=== PATIENT | male | born 1945 | race Caucasian/White ===

== ENCOUNTER 2020-10-15 14:36 | Outpatient (CLI) | payer OTHER, SELFPAY ==
--- NOTE | 2020-10-15 14:40 | XR_ITS ---
WS: [id number] XR abdomen 1V* [id number] REASON FOR EXAM: abdominal pain FINDINGS: Bowel gas pattern is unremarkable. No free air or retroperitoneal air is noted. No urinary tract calculi. Multiple surgical clips overlying the superior right sacral wing. No mass identified. XR/XR abdomen 1V* [id number] IMPRESSION: No acute abnormality.
--- NOTE | 2020-10-15 14:40 | XR_ITS ---
WS: [id number] XR ribs LT 2V* [id number] REASON FOR EXAM: pain and fall FINDINGS: Healing or healed anterior left sixth rib fracture. No other focal rib abnormality is identified. Left lung is unremarkable. XR/XR ribs LT 2V* [id number] IMPRESSION: Healed or healing left sixth rib fracture. No acute rib abnormality identified.
== END 2020-10-15 14:37 | disposition home or self-care (01) ==
PROVIDERS: PCP Emergency Medicine Emergency Medical Services; Visit Provider Nurse Practitioner
DX: R10.9 Unspecified abdominal pain (principal); R07.81 Pleurodynia; W19.XXXA Unspecified fall, initial encounter
CPT/HCPCS: 71100; 74018

== ENCOUNTER → 2020-11-13 11:42 | Outpatient (BNVA) | payer OTHER, SELFPAY | PROVIDERS: PCP Emergency Medicine Emergency Medical Services; Referring Provider Emergency Medicine Emergency Medical Services; Visit Provider Podiatrist Foot & Ankle Surgery | DX: L97.322 Non-pressure chronic ulcer of left ankle with fat layer exposed (principal); M79.89 Other specified soft tissue disorders; M77.8 Other enthesopathies, not elsewhere classified | CPT/HCPCS: 73610 ==

== ENCOUNTER 2020-11-14 09:02 | Outpatient (CLI) | payer OTHER, SELFPAY ==
[2020-11-14 10:06] LABS: Basophils # 0.1 10^3/uL (0.0-0.1); Eosinophils # 0.1 10^3/uL (0.0-0.8); Hematocrit 42.7 % (42.0-52.0); Lymphocytes # 1.7 10^3/uL (0.8-4.8); Mean Corpuscular HGB Conc 35.1 g/dL (30.0-36.0); Mean Corpuscular Hemoglobin 32.6 pg (28.0-34.0); Mean Corpuscular Volume 92.8 fL (80-94); Mean Platelet Volume 10.6 fL (7.4-10.4); Monocytes # 0.7 10^3/uL (0.2-0.9); Monocytes % 9.4 %; Neutrophils # 4.48 10^3/uL (1.8-7.7); Neutrophils % 62.9 %; Nucleated Red Blood Cells % 0 %; Platelet Count 105 10^3/cmm (130-400); Red Cell Distribution Width 12.6 % (12.1-15.1); White Blood Count 7.1 10^3/uL (4.0-10.0)
[2020-11-14 10:44] LABS: Slide Review Slide Review Perform
--- NOTE | 2020-11-15 17:04 | ONC CON_ITS ---
Dr. Novak New Patient Note Patient: Immanuel Dumont Unit #: [id number]: 1945 Dicatated By: Hamlet Novak M.D.Date of Visit: Nov 14, 2020 Onc MED New Patient/Consult Referring Physician: Dr. CHET DAWSON M.D. History of Present Illness: Mr. Immanuel Dumont, is a 75-year-old gentleman with a history of hemochromatosis, as per patient he was diagnosed this condition in [address] 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 His past medical history significant for insulin-dependent diabetes mellitus, coronary artery disease, as per daughter medical management only. Diabetic foot ulcers. Denies any specific complaints, no fever chills, no nausea or vomiting, no diarrhea constipation, no headaches blurred vision or double vision. Denies any specific complaint today denies any fever chills denies any nausea or vomiting denies any diarrhea or constipation, as per patient no history of special scan to check iron overload done in the past. Past Medical History: Mr. Dumont's medical history consists of anxiety, bph, carpal tunnel syndrome, depression, gastroesophageal reflux disease, hyperglyceridemia, hypertension, Teitzes disease, and type II diabetes. Past Surgical History: There is no documented surgical history. Medications: Aspirin 81 1 Tablet (of 81 mg) Tablet, chewable Oral daily, Atorvastatin Calcium 1 Tablet (of 80 mg) Oral daily, DULoxetine HCl 1 Capsule (of 30 mg) Capsule Delayed Release Particles Oral b.i.d., Finasteride 1 Tablet (of 5 mg) Oral daily, Furosemide 1 Tablet (of 20 mg) Oral daily, Gabapentin 1 Capsule (of 300 mg) Oral t.i.d., Isosorbide Mononitrate ER 1 Tablet (of 120 mg) Tablet SR 24 HR Oral daily, Methocarbamol 1 Tablet (of 750 mg) Oral t.i.d., Nitrostat 1 Tablet (of 0.4 mg) Tablet, sublingual Sublingual PRN, Plavix 1 Tablet (of 75 mg) Oral daily, Ranexa 1 Tablet (of 1000 mg) Tablet SR 12 HR Oral b.i.d. Allergies: Dulaglutide, Empagliflozin, Liraglutide, and Pregabalin. Social History: Mr. Dumont is . Family History: There is no documented family history. Review Of Symptoms: Constitutional - Appetite is good and weight is stable. No fever, night sweats, or hot flashes. Energy level is fair, ENMT - No sinus congestion/drainage. No mouth sores. No sore throat or difficulty swallowing, Hematologic/Lymphatic - Positive for easy bruising and bleeding, Respiratory - Positive for shortness of breath. No cough. No pleuritic pain or hemoptysis, Cardiovascular - Positive for occasional chest pain and heart palpitations, Gastrointestinal - No nausea or vomiting. Positive for heartburn and acid reflux. No diarrhea or constipation. No blood in the stool or black stools, Genitourinary (M) - No dysuria or hematuria. No urinary frequency. No urgency . Positive for incontinence, Musculoskeletal - No joint or bone pain, Neurologic - No headache. Positive dizziness. Positive for numbness, no tingling. No other focal neurologic symptoms, Psychiatric - No anxiety or depression. No insomnia. Vital Signs: Performed on Nov 14, 2020 11:35: 0, 28.43, 2.17 sq.m, 72 in, 94 % (LOW), 88 /min, 16 /min, 123/59 mm(hg), 98.2 F (LOW), and 209.6 lbs (HIGH). Performance Status: 2 - Ambulatory/capable of all self-care, unable to perform any work activities. Up and about more than 50% of waking hours. (ECOG) Physical Examination: ENMT - No mouth sores, no thrush, no jaundice, Respiratory - Poor air entry otherwise clear, Cardiovascular - Regular rate and rhythm of heart, Abdomen - Soft, bowel sounds present, Extremities - 1+ edema bilateral. Lab/Imaging: Most recent lab results are not available for this patient. Impression: History of hemochromatosis, as per patient he was diagnosed in 2011 or 13 at [facility] in [place], at that time genetic testing was positive for HFE gene and his ferritin was more than 2000 and he was treated with frequent phlebotomies. 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 As his ferritin is elevated, goal is to keep ferritin less than 50 ideally less than 25 to minimize risk of iron deposition in vital organs, will consider phlebotomy today and then he will return to clinic in 1 month with CBC and ferritin, in the meantime we will obtain records from [facility] and [facility]. Patient was advised to avoid iron rich foods Signed By: Hamlet Novak M.D. <<Signature on File>>
== END 2020-11-14 09:03 | disposition home or self-care (01) ==
PROVIDERS: Internal Medicine Hematology & Oncology; PCP Emergency Medicine Emergency Medical Services; Referring Provider Emergency Medicine Emergency Medical Services; Visit Provider Internal Medicine Medical Oncology
DX: E83.110 Hereditary hemochromatosis (principal); E11.40 Type 2 diabetes mellitus with diabetic neuropathy, unspecified; Z79.4 Long term (current) use of insulin; E11.59 Type 2 diabetes mellitus with other circulatory complications; I25.10 Atherosclerotic heart disease of native coronary artery without angina pectoris; E11.65 Type 2 diabetes mellitus with hyperglycemia; E78.5 Hyperlipidemia, unspecified; L97.509 Non-pressure chronic ulcer of other part of unspecified foot with unspecified severity; Z79.899 Other long term (current) drug therapy
CPT/HCPCS: 36415; 85025; 99195; 99204

== ENCOUNTER → 2020-11-21 09:49 | Outpatient (BNVA) | payer OTHER, SELFPAY | PROVIDERS: PCP Emergency Medicine Emergency Medical Services; Visit Provider Internal Medicine | DX: E11.40 Type 2 diabetes mellitus with diabetic neuropathy, unspecified (principal); E11.59 Type 2 diabetes mellitus with other circulatory complications; I25.10 Atherosclerotic heart disease of native coronary artery without angina pectoris; E11.65 Type 2 diabetes mellitus with hyperglycemia; E78.5 Hyperlipidemia, unspecified; L97.509 Non-pressure chronic ulcer of other part of unspecified foot with unspecified severity | CPT/HCPCS: 99205 ==

== ENCOUNTER 2020-12-29 18:05 | Emergency (ER) | payer OTHER, SELFPAY ==
[2020-12-29] VITALS (8 sets, daily range): BP systolic 111–136; BP diastolic 64–84; PULSE 100–109; RESP 14–25; TEMP 37.1; O2SAT 91–95; BMI 28.5
--- NOTE | 2020-12-29 18:21 | ECG_ITS ---
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 Measurements Intervals [place] Rate: 109 P: [place]: QRS: 104 QRSD: 139 T: 20 QT: 363 QTc: 489 Interpretive Statements SINUS TACHYCARDIA RIGHT AXIS DEVIATION [QRS AXIS > 100] RIGHT BUNDLE BRANCH BLOCK [120+ ms QRS DURATION, UPRIGHT V1, 40+ ms S IN I/aVL/V4/V5/V6] No previous ECG available for comparison Electronically Signed On 01-01-2021 6:35:15 MOBILE BATTERY TECHNICIAN by Ruby Rojas M.D. [id number]
--- NOTE | 2020-12-29 18:21 | XRR_ITS ---
PROCEDURE INFORMATION: Exam: XR Chest, 1 View Exam date and time: 12/29/2020 6:21 PM Age: 75 years old Clinical indication: Chest pain TECHNIQUE: Imaging protocol: XR of the chest Views: 1 view. COMPARISON: CR XR ribs LT 2V* [id number] 10/15/2020 3:12 PM FINDINGS: Lungs: Right mid to lower lung field atelectasis versus minimal infiltrate. Pleural spaces: Unremarkable. No pleural effusion. No pneumothorax. Heart/Mediastinum: Unremarkable. No cardiomegaly. Bones/joints: Unremarkable. XR/XR chest 1V portable [id number] IMPRESSION: Right mid to lower lung field atelectasis versus minimal infiltrate.
--- NOTE | 2020-12-29 19:06 | ED_ITS ---
HPI - Chest Pain General: Chief Complaint: Chest Pain Stated Complaint: CP, NUMBNESS L ARM Time Seen by Provider: 12/29/20 18:26 History of Present Illness: HPI narrative: 75-year-old gentleman with a history of coronary disease. He had one stent several years ago. He had a cath in July, evidently showing widespread disease. CABG was suggested, but after he followed up with the chest surgeon, they said that he may not do well with bypass surgery. He recently moved here. He awoke with chest pain at 630 this morning. He is had it all day. It radiates into his left arm, and he gets numbness and tingling to his left arm. 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 Onset (ago): hour(s) Prior episodes: Yes Onset: during rest and awoke with symptoms Pain location: left chest Pain radiation: left arm Severity: moderate Quality: sharp Associated symptoms: Deny dyspnea, fever(s), nausea, palpitations, syncope or vomiting Review of Systems Const: Denies: fever(s) ENMT: Denies: throat pain, nasal congestion or post nasal drip Card: Denies: palpitations or syncope Resp: Denies: dyspnea GI: Denies: nausea or vomiting Neuro: Reports: numbness in extremities (left); Denies: headache(s) PFS ED PFSH: Medical History Adopted Arthritis History of amputation of right great toe Stroke Surgical History History of amputation of lesser toe of left foot History of appendectomy History of carpal tunnel release History of shoulder surgery Social History Smoking and tobacco status: former smoker Alcohol intake: current Alcohol intake frequency: holidays/special occasions only Adopted: Yes Lives independently: Yes Housing: Apartment Physical Exam Const: GENERAL APPEARANCE: frail appearing ORIENTATION/CONSCIOUSNESS: Yes oriented to person, Yes oriented to place and Yes oriented to time HENMT: COMMON NORMALS: normocephalic, external ears normal and Normal external nose present HEAD & SCALP: normocephalic; no scalp tenderness FACE & SINUS: normal facial exam NOSE: Normal external nose present and No nasal discharge present EXTERNAL EAR: Yes external ears normal Eye: COMMON NORMALS: Equal, round and reactive pupils present, EOMs intact bilaterally and conjunctivae normal EYELID: eyelids normal CONJUNCTIVA: Yes conjunctivae normal PUPIL: Yes Equal, round and reactive pupils present Neck/C-Spine: GENERAL: No tracheal deviation Chest: COMMONS NORMALS: normal inspection of the chest CHEST: No tenderness Resp: COMMON NORMALS: clear to auscultation bilaterally EFFORT & INSPECTION: No tachypneic, No respiratory distress and No retractions AUSCULTATION: clear to auscultation bilaterally, no rhonchi, no wheezes and lung sounds not diminished Cardio: COMMON NORMALS: regular rhythm RATE: tachycardic RHYTHM: regular rhythm HEART SOUNDS: no murmurs PERIPHERAL PULSES: radial pulses present GI: INSPECTION: No abdominal distension AUSCULTATION: No Hyperactive bowel sounds present and No Hypoactive bowel sounds present PALPATION: No Guarding due to palpation present (GI) and No Rigid due to palpation PERCUSSION: no dullness to percussion and no tympanic to percussion Neuro: SENSORIUM/ORIENTATION: Yes oriented to person, Yes oriented to place and Yes oriented to time Psych: COMMON NORMALS: mental status grossly normal Skin: COMMON NORMALS: no rashes or lesions noted GENERAL SKIN EXAM: no rashes or lesions noted Course Vital Signs: Vital signs: Vital Signs Temperature 98.7 F 12/29/20 18:12 Pulse Rate 100 12/29/20 23:26 Respiratory Rate 14 12/29/20 22:39 Blood Pressure 133/84 12/29/20 23:26 Pulse Oximetry 93 12/29/20 23:26 MDM - Chest Pain MDM Narrative: Medical decision making narrative: 5-year-old gentleman with a history of coronary disease. He presents with chest discomfort. Is completely relieved after nitroglycerin and morphine here. He also has a history of cervical spine stenosis and is experiencing some intermittent radicular pain and numbness down his left arm. His sugar is quite high at 437. He notes that he just ate before he got here. He usually takes Lantus at night, but he also notes that his sugars have been under poor control, and that is one of the reasons the chest surgeon did not want to do surgery on him in [place] his troponin did not elevate. His EKG shows a sinus rhythm with T wave inversions diffusely, but no acute ST changes. It is stable at 2 hours with relief of his pain, the patient would like to go home, although he was offered observation. We stressed tight sugar control, and to call his rodent exterminator on Thursday. To return for any return of pain. Lab Data: Labs: Lab Results 12/29/20 12/29/20 12/29/20 Range/Units 19:15 19:15 19:15 WBC 7.0 (4.0-10.0) 10^3/ uL RBC 4.70 (4.1-5.3) 10^6/u L Hgb 15.2 (11.7-16.6) g/dL Hct 42.5 (42.0-52.0) % MCV 90.4 (80-94) fL MCH 32.3 (28.0-34.0) pg MCHC 35.8 (30.0-36.0) g/dL RDW 12.2 (12.1-15.1) % Plt Count 128 L (130-400) 10^3/c mm MPV 11.3 H (7.4-10.4) fL Neut % (Auto) 55.3 % Lymph % (Auto) 32.0 % [place] % (Auto) 9.1 % Eos % (Auto) 1.9 % Baso % (Auto) 1.0 % Neut # (Auto) 3.88 (1.8-7.7) 10^3/u L Lymph # (Auto) 2.2 (0.8-4.8) 10^3/u L [place] # (Auto) 0.6 (0.2-0.9) 10^3/u L Eos # (Auto) 0.1 (0.0-0.8) 10^3/u L Baso # (Auto) 0.1 (0.0-0.1) 10^3/u L Nucleated RBC % (a uto) 0 % Nucleated RBCs # 0.0 /100WBC D-Dimer (0-0.59) ug/mIFE U Sodium 134 L (136-145) mmol/L Potassium 4.4 (3.5-5.1) mmol/L Chloride 96 L (98-107) mmol/L Carbon Dioxide 27 (22-29) mmol/L Anion Gap 15.4 (5-19) BUN 21 (8-23) mg/dL Creatinine 0.7 (0.7-1.2) mg/dL GFR Calculation Not Reportable Glucose 437 H (65-115) mg/dL Calculated Osmolal ity 300 H (285-295) mOsm/k g Calcium 9.3 (8.5-10.5) mg/dL Total Bilirubin 0.7 (0.15-1.2) mg/dL AST 38 (0-40) U/L ALT 42 H (0-41) U/L Alkaline Phosphata se 305 H (40-130) IU/L Troponin T Baselin e 14 (0-15) ng/L Troponin T [address] [place] (0-15) ng/L Delta Troponin T (0-10) ABS# NT-Pro-B Natriuret Pep 43 (0-125) pg/mL Total Protein 6.4 L (6.6-8.7) g/dL Albumin 3.7 (3.5-5.2) g/dL Globulin 2.7 (1.3-4.6) g/dL 12/29/20 12/29/20 Range/Units 19:15 20:25 WBC (4.0-10.0) 10^3/ uL RBC (4.1-5.3) 10^6/u L Hgb (11.7-16.6) g/dL Hct (42.0-52.0) % MCV (80-94) fL MCH (28.0-34.0) pg MCHC (30.0-36.0) g/dL RDW (12.1-15.1) % Plt Count (130-400) 10^3/c mm MPV (7.4-10.4) fL Neut % (Auto) % Lymph % (Auto) % [place] % (Auto) % Eos % (Auto) % Baso % (Auto) % Neut # (Auto) (1.8-7.7) 10^3/u L Lymph # (Auto) (0.8-4.8) 10^3/u L [place] # (Auto) (0.2-0.9) 10^3/u L Eos # (Auto) (0.0-0.8) 10^3/u L Baso # (Auto) (0.0-0.1) 10^3/u L Nucleated RBC % (a uto) % Nucleated RBCs # /100WBC D-Dimer 0.62 H (0-0.59) ug/mIFE U Sodium (136-145) mmol/L Potassium (3.5-5.1) mmol/L Chloride (98-107) mmol/L Carbon Dioxide (22-29) mmol/L Anion Gap (5-19) BUN (8-23) mg/dL Creatinine (0.7-1.2) mg/dL GFR Calculation Glucose (65-115) mg/dL Calculated Osmolal ity (285-295) mOsm/k g Calcium (8.5-10.5) mg/dL Total Bilirubin (0.15-1.2) mg/dL AST (0-40) U/L ALT (0-41) U/L Alkaline Phosphata se (40-130) IU/L Troponin T Baselin e (0-15) ng/L Troponin T [address] [place] 13.49 (0-15) ng/L Delta Troponin T -0.51 L (0-10) ABS# NT-Pro-B Natriuret Pep (0-125) pg/mL Total Protein (6.6-8.7) g/dL Albumin (3.5-5.2) g/dL Globulin (1.3-4.6) g/dL Discharge Plan Discharge Patient Disposition: Home Clinical Impression: Chest pain Condition: Stable Prescriptions: No Action Lantus Solostar U-100 Insulin 100 unit/mL (3 mL) insulin pen 65 unit SUBCUT .Qpm RF: 0 insulin aspart U-100 [Novolog Flexpen U-100 Insulin] 100 unit/mL (3 mL) insulin pen See Rx Instructions SUBCUT TID RF: 0 aspirin [Adult Low Dose Aspirin] 81 mg tablet,delayed release (DR/EC) 81 mg PO DAILY RF: 0 atorvastatin 80 mg tablet 80 mg PO DAILY RF: 0 bisoprolol fumarate 5 mg tablet 5 mg PO DAILY RF: 0 duloxetine 30 mg capsule,delayed release(DR/EC) 30 mg PO BID RF: 0 enalapril maleate 20 mg tablet 30 mg PO DAILY RF: 0 finasteride 5 mg tablet 5 mg PO DAILY RF: 0 gabapentin 300 mg capsule 300 mg PO TID RF: 0 isosorbide mononitrate 120 mg tablet extended release 24 hr 120 mg PO DAILY RF: 0 furosemide [Lasix] 40 mg tablet 40 mg PO BID RF: 0 meloxicam 7.5 mg tablet 7.5 mg PO BID RF: 0 methocarbamol 750 mg tablet 750 mg PO TID RF: 0 nitroglycerin 0.4 mg tablet, sublingual 0.4 mg sublingual Q5M PRNRF: 0 clopidogrel [Plavix] 75 mg tablet 75 mg PO DAILY RF: 0 potassium chloride 10 mEq tablet extended release 10 meq PO DAILY RF: 0 ranolazine [Ranexa] 1,000 mg tablet extended release 12 hr 1,000 mg PO BID RF: 0 (DME) FreeStyle Jostin 14 Day Sensor Kit See Rx Instructions .ROUTE .MEDSUPPLY Qty: 1 RF: 3 (DME) Diabetic Shoes with 3 pairs of molded inserts See Rx Instructions .ROUTE .MEDSUPPLY Qty: 1 RF: 0 Discharge Orders: Discharge ED (Routine); Ordered 12/29/20 Ordered By: Eldon Diaz Referrals: Vlad Corona, [Primary Care Provider] - 4-7 days Discharge Diet: Advance as tolerated Discharge Activity: Increase activity as tolerated Patient Instructions: Coronary Artery Disease (ED), Chest Pain (ED) Activity Restrictions/Additional Instructions: Return for repeated episodes of chest pain, shortness of breath, fever, cough, swelling to the extremities, other concerning conditions. Call your rodent exterminator on Thursday, let them know you were here with chest discomfort. Further outpatient tests may be needed. Coding Level of Care Code ED Appointment Scheduler for [place] Fwd Exam Comprehensive
[2020-12-29] MEDS: ondansetron 2 mg/ML SDV 2 mL 4 MG IVP (19:22)
[2020-12-29] MEDS: morphine 4 mg/mL SDV 1 mL IVP (19:23)
[2020-12-29] MEDS: nitroglycerin 1 gm/inch oint Pkt 0.5 INCH TOPICAL (19:25)
[2020-12-29 19:44] LABS: D Dimer 0.62 ug/mIFEU (0-0.59)
[2020-12-29 19:46] LABS: Basophils # 0.1 10^3/uL (0.0-0.1); Eosinophils # 0.1 10^3/uL (0.0-0.8); Eosinophils % 1.9 %; Hematocrit 42.5 % (42.0-52.0); Hemoglobin 15.2 g/dL (11.7-16.6); Lymphocytes # 2.2 10^3/uL (0.8-4.8); Mean Corpuscular HGB Conc 35.8 g/dL (30.0-36.0); Mean Corpuscular Hemoglobin 32.3 pg (28.0-34.0); Mean Corpuscular Volume 90.4 fL (80-94); Mean Platelet Volume 11.3 fL (7.4-10.4); Monocytes # 0.6 10^3/uL (0.2-0.9); Monocytes % 9.1 %; Neutrophils # 3.88 10^3/uL (1.8-7.7); Neutrophils % 55.3 %; Nucleated Red Blood Cells % 0 %; Platelet Count 128 10^3/cmm (130-400); Red Cell Distribution Width 12.2 % (12.1-15.1)
[2020-12-29 19:51] LABS: Troponin(5th) Baseline 14 ng/L (0-15)
[2020-12-29 20:00] LABS: Alanine Aminotransferase 42 U/L (0-41); Albumin Level 3.7 g/dL (3.5-5.2); Alkaline Phosphatase 305 IU/L (40-130); Aspartate Amino Transferase 38 U/L (0-40); Blood Urea Nitrogen 21 mg/dL (8-23); Calcium 9.3 mg/dL (8.5-10.5); Carbon Dioxide 27 mmol/L (22-29); Chloride 96 mmol/L (98-107); Globulin 2.7 g/dL (1.3-4.6); Glucose 437 mg/dL (65-115); NT Pro B Type Natriuretic Pept 43 pg/mL (0-125); Osmolality Calculated 300 mOsm/kg (285-295); Sodium 134 mmol/L (136-145); Total Bilirubin 0.7 mg/dL (0.15-1.2); Total Protein 6.4 g/dL (6.6-8.7)
[2020-12-29 20:06] LABS: Anion Gap 15.4 (5-19); Potassium 4.4 mmol/L (3.5-5.1)
--- NOTE | 2020-12-29 20:18 | PC.NURSE ---
EKG done at 2008 and shown to ER doctor
--- NOTE | 2020-12-29 20:21 | ECG_ITS ---
[facility] Test Date: 2020-12-29 Pat Name: Immanuel Dumont Department: Room: Gender: Male Film Tests Checker: : 1945 Requested By: Angie Bansal Order Number: [id number] Ramone MD: Ruby Rojas M.D. Measurements Intervals [place] Rate: 103 P: [place]: QRS: 99 QRSD: 150 T: 16 QT: 384 QTc: 505 Interpretive Statements SINUS TACHYCARDIA RIGHT BUNDLE BRANCH BLOCK [120+ ms QRS DURATION, UPRIGHT V1, 40+ ms S IN I/aVL/V4/V5/V6] No previous ECG available for comparison Electronically Signed On 01-01-2021 6:27:56 DENTAL PRACTICE MANAGER by Ruby Rojas M.D. [id number]
[2020-12-29 20:56] LABS: Troponin 5 2HR 13.49 ng/L (0-15)
[2020-12-29 21:04] LABS: Troponin 5 2HR Delta -0.51 ABS# (0-10)
== END 2020-12-29 23:31 | disposition home or self-care (01) ==
PROVIDERS: Physician Assistant; Emergency Provider Emergency Medicine; PCP Emergency Medicine Emergency Medical Services
DX: R07.9 Chest pain, unspecified (principal); Z79.4 Long term (current) use of insulin; Z79.82 Long term (current) use of aspirin; Z79.02 Long term (current) use of antithrombotics/antiplatelets; Z86.73 Personal history of transient ischemic attack (TIA), and cerebral infarction without residual deficits; Z87.891 Personal history of nicotine dependence
CPT/HCPCS: 71045; 80053; 83880; 84484; 85025; 85378; 93005; 96374; 96375; 99284; J2270; J2405

== ENCOUNTER 2021-01-15 11:25 | Emergency (ER) | payer OTHER, MEDICARE, SELFPAY ==
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
[2021-01-15 11:54] VITALS: BP 112/65; PULSE 93; RESP 16; TEMP 36.5; O2SAT 96; BMI 29.8
--- NOTE | 2021-01-15 12:30 | W.ED.EXTPRO ---
HPI - Extremity Problem General: Chief complaint: Extremity Injury, Lower Stated complaint: R FOOT INJURY Time Seen by Provider: 01/15/21 12:00 Source: patient and family Mode of arrival: ambulatory Limitations: no limitations History of Present Illness: HPI Narrative: 75-year-old male patient presents to the emergency department with laceration to the right foot. He reports cut in the web of the toes states toes got caught between the scooter in the refrigerator. Tetanus shot up-to-date MD Complaint: extremity pain Onset (ago): hour(s) (1) Pain Consistency: other (Denies foot pain secondary to neuropathy) Location: right and lower extremity Radiation: none Associated symptoms: Reports no associated symptoms; Deny chest pain, fever(s) or rash Review of Systems General: Reports: 10 or more systems reviewed and unremarkable except in HPI and below Const: Denies: fever(s), chills or diaphoresis Eyes: Denies: blurry vision or eye redness ENMT: Denies: throat pain, dental pain or disequilibrium Card: Denies: chest pain, palpitations or irregular heart rhythm Resp: Denies: dyspnea, productive cough, non-productive cough or wheezing GI: Denies: abdominal pain, nausea or vomiting : Denies: dysuria Musc: Denies: neck pain, back pain, muscle cramps or muscle weakness Skin/Breast: Denies: rash or pruritus Neuro: Denies: headache(s), weakness in extremities or behavioral changes Psych: Denies: anxiety, depression or sleeping more Lalo/Lymph: Denies: easy bruising PFSH ED PFSH: Medical History Adopted Arthritis History of amputation of right great toe Stroke Surgical History History of amputation of lesser toe of left foot History of appendectomy History of carpal tunnel release History of shoulder surgery Social History Smoking and tobacco status: former smoker Alcohol intake: current Alcohol intake frequency: holidays/special occasions only Adopted: Yes Lives independently: Yes Housing: Apartment Physical Exam Const: COMMON NORMALS: no acute distress, patient oriented x3, healthy appearing and alert GENERAL APPEARANCE: cooperative, comfortable and well hydrated HENMT: COMMON NORMALS: normocephalic, Normal external nose present and moist oral mucous membranes HEAD & SCALP: normocephalic NOSE: Normal external nose present Eye: COMMON NORMALS: Equal, round and reactive pupils present and EOMs intact bilaterally GENERAL EYE: appearance normal, both eyes and all related structures PUPIL: Yes Equal, round and reactive pupils present Neck/C-Spine: COMMON NORMALS: full ROM and no lymphadenopathy GENERAL: Yes normal visual inspection and Yes trachea midline CERVICAL SPINE: Yes cervical ROM normal Lymph: LYMPHATIC: no lymphadenopathy noted Chest: COMMONS NORMALS: normal inspection of the chest Resp: COMMON NORMALS: normal respiratory effort and clear to auscultation bilaterally AUSCULTATION: clear to auscultation bilaterally Cardio: COMMON NORMALS: regular rhythm, S1 normal heart sound present and S2 normal heart sound present RHYTHM: regular rhythm HEART SOUNDS: S1 normal heart sound present and S2 normal heart sound present GI: COMMON NORMALS: Soft to palpation and non-tender INSPECTION: Yes normal to inspection PALPATION: Yes Soft to palpation : COMMON NORMALS: Yes no CVA tenderness BLADDER/KIDNEY EXAM: Yes no CVA tenderness Back/Pelvis: COMMON NORMALS: no CVA tenderness and thoracic and lumbar spine normal to inspection Extremity: COMMON NORMALS: normal to inspection, capillary refill normal, no clubbing, cyanosis or edema and no pedal edema NARRATIVE EXTREMITY EXAM: Previous amputation right great toe Neuro: COMMON NORMALS: patient oriented x3 and no focal motor deficits SENSORIUM/ORIENTATION: Yes alert Psych: COMMON NORMALS: mental status grossly normal, Normal thought process present and cooperative ACTIVITY/MOTOR BEHAVIOR: Yes appropriate eye contact THOUGHT PROCESS: Normal thought process present Skin: COMMON NORMALS: no rashes or lesions noted, turgor normal, no petechiae and no mottling GENERAL SKIN EXAM: no rashes or lesions noted, turgor normal and erythema (slight over the dorsum of the rt foot) LESIONS: lesion noted (scattered wounds with scab formation to the toes of the rt foot) RASHES: no rashes TRAUMA: laceration linear, involves subcutaneous tissue, involves muscle tissue and motor nerve function intact; no foreign bodies present and sensation not intact (chronic neuropathy) Procedures Laceration Laceration 1: Site: lower extremity (laceration b/t 4th and 5th digit - web space) Side (If applicable): right Size (cm): 2 Description: linear Depth: simple, single layer and involves muscle layer Local Anesthetic: lidocaine 1% Amount of anesthesia used (mL): 5 Pre-repair: wound explored, irrigated extensively, deep structures intact and extensive debridement Skin layer closed with: nylon Size (cm): 4-0 Number of sutures: 4 Technique: simple, interrupted Muscle layer closed with: vicryl Size: 5-0 Number of sutures: 2 Technique: simple, interrupted Course Vital Signs: Vital signs: Vital Signs Temperature 97.7 F 01/15/21 11:54 Pulse Rate 87 01/15/21 12:40 Respiratory Rate 16 01/15/21 12:40 Blood Pressure 108/63 01/15/21 12:40 Pulse Oximetry 98 01/15/21 12:40 MDM - Extremity (Nontraumatic) MDM Narrative: Medical decision making narrative: 75-year-old male presents to the emergency department with laceration between the fourth and fifth digit of the left foot. Laceration was deep, repaired with 2 absorbable and 4 skin layer sutures. He was placed in postop shoe secondary to mildly displaced commuted fracture, have contacted social and human services assistant to assist with prompt follow-up with Dr. Gilbert secondary to risk of infection. Laceration was thoroughly irrigated with Betadine and saline. He was placed on prophylactic antibiotics Keflex. Patient is advised us not to remove dressing until follow-up with Dr. Gilbert. Verbalized understanding and to keep foot elevated as much as possible. Imaging Data^: Other Xray: Radiologist's impression: [place] [address] XRay Report Signed Patient: Immanuel Dumont #: [id number] : 7Acc#:[id number] Age/Sex: 75 / MADM Date: 01/15/21 Loc: ERRoom/Bed: Attending Dr: Ordering Provider/Ordering MD: Elvia Baird Date of Service: 01/15/21 Procedure(s): XR foot RT min 3V* 09199 Accession Number(s): [id number] Report Number: [id number] PROCEDURE INFORMATION: Exam: XR Right Foot Exam date and time: 01/15/2021 11:48 AM Age: 75 years old Clinical indication: Pain and injury or trauma; Other: Caught foot between scooter and refrigerator; Blunt trauma and laceration; Right; Foreign body involvement not specified; Injury date: 01/15/21; Additional info: RT foot pain/injury TECHNIQUE: Imaging protocol: XR Right foot. Views: 3 or more views. COMPARISON: No relevant prior studies available. FINDINGS: Bones/joints: The distal phalanx of the great toe has been amputated. There is comminuted fracture of the head of the proximal phalanx of the 4th toe with about 2 mm of lateral displacement of the distal fragments. Soft tissues: Normal. XR/XR foot RT min 3V* 12556 IMPRESSION: Mildly displaced comminuted fracture of the head of the proximal phalanx of the 4th toe. Dictated By:Immanuel Peres Signed By:Young Peres Date/Time:01/15/21 1317 DD/ 1315 Discharge Plan Discharge Patient Disposition: Home Clinical Impression: Fracture of toe of right foot Qualifiers: Encounter type: initial encounter Toe: lesser toe Fracture type: open Phalanx: proximal Fracture alignment: displaced Qualified Code(s): S92.511B - Displaced fracture of proximal phalanx of right lesser toe(s), initial encounter for open fracture Laceration of foot Qualifiers: Encounter type: initial encounter Laterality: right Qualified Code(s): S91.311A - Laceration without foreign body, right foot, initial encounter Condition: Stable Prescriptions: New Keflex 500 mg capsule 500 mg PO Q6H 7 Days Qty: 28 RF: 0 No Action Lantus Solostar U-100 Insulin 100 unit/mL (3 mL) insulin pen 65 unit SUBCUT .Qpm RF: 0 insulin aspart U-100 [Novolog Flexpen U-100 Insulin] 100 unit/mL (3 mL) insulin pen See Rx Instructions SUBCUT TID RF: 0 aspirin [Adult Low Dose Aspirin] 81 mg tablet,delayed release (DR/EC) 81 mg PO DAILY RF: 0 atorvastatin 80 mg tablet 80 mg PO DAILY RF: 0 bisoprolol fumarate 5 mg tablet 5 mg PO DAILY RF: 0 duloxetine 30 mg capsule,delayed release(DR/EC) 30 mg PO BID RF: 0 enalapril maleate 20 mg tablet 30 mg PO DAILY RF: 0 finasteride 5 mg tablet 5 mg PO DAILY RF: 0 gabapentin 300 mg capsule 300 mg PO TID RF: 0 isosorbide mononitrate 120 mg tablet extended release 24 hr 120 mg PO DAILY RF: 0 furosemide [Lasix] 40 mg tablet 40 mg PO BID RF: 0 meloxicam 7.5 mg tablet 7.5 mg PO BID RF: 0 methocarbamol 750 mg tablet 750 mg PO TID RF: 0 nitroglycerin 0.4 mg tablet, sublingual 0.4 mg sublingual Q5M PRNRF: 0 clopidogrel [Plavix] 75 mg tablet 75 mg PO DAILY RF: 0 potassium chloride 10 mEq tablet extended release 10 meq PO DAILY RF: 0 ranolazine [Ranexa] 1,000 mg tablet extended release 12 hr 1,000 mg PO BID RF: 0 (DME) FreeStyle Jostin 14 Day Sensor Kit See Rx Instructions .ROUTE .MEDSUPPLY Qty: 1 RF: 3 (DME) Diabetic Shoes with 3 pairs of molded inserts See Rx Instructions .ROUTE .MEDSUPPLY Qty: 1 RF: 0 Discharge Orders: Discharge ED (Routine); Ordered 01/15/21 Ordered By: Elvia Baird Referrals: Vlad Corona DO [Primary Care Provider] - Discharge Diet: Usual diet Discharge Activity: Limit activity as instructed Patient Instructions: Suture Care (ED), Laceration (ED), Toe Fracture (ED), Opioid Safety Activity Restrictions/Additional Instructions: deputy sheriff court services will be contacting you with an appointment with Dr. Gilbert, podiatry, you are to follow-up this week without fail to ensure wound is healing Take Keflex, cephalexin until all gone, even if well Keep the right foot elevated, do not submerge in water, do not remove dressing until evaluated by Dr. Gilbert Return to the emergency department if you develop fever chills or foul odor from the wound Coding Level of Care Code ED Nuclear Reactor Technician for [facility] Exam Comprehensive
[2021-01-15] MEDS: lidocaine 1% INJ 20 mL INJECTION (12:32)
[2021-01-15] MEDS: cephALEXin 500 mg Capsule PO (12:32)
[2021-01-15 12:40] VITALS: BP 108/63; PULSE 87; RESP 16; O2SAT 98
--- NOTE | 2021-01-15 15:36 | DCPLANNER ---
manager roofing was asked to schedule a follow up appointment for patient with ortho. manager roofing called the ortho clinic, spoke with Mayra, gave clinic patients information. manager roofing was told that patients information would be printed and reviewed. Clinic will call patient with appointment information.
--- NOTE | 2021-01-16 07:52 | DCPLANNER ---
Patient has a follow up appointment scheduled for , January 17, 2021 at 3:[address] Noel at ortho. Clinic will call patient with appointment information.
--- NOTE | 2021-01-30 15:26 | DCPLANNER ---
Patient had a follow up appointment scheduled for 01.17.[address]el at [facility] - patient did attend appointment.
== END 2021-01-15 15:19 | disposition home or self-care (01) ==
PROVIDERS: Emergency Provider Nurse Practitioner Family; PCP Emergency Medicine Emergency Medical Services
DX: S91.311A Laceration without foreign body, right foot, initial encounter (principal); S92.511B Displaced fracture of proximal phalanx of right lesser toe(s), initial encounter for open fracture; Z79.4 Long term (current) use of insulin; Z79.82 Long term (current) use of aspirin; Z87.891 Personal history of nicotine dependence; W23.0XXA Caught, crushed, jammed, or pinched between moving objects, initial encounter
CPT/HCPCS: 12041; 73630; 99283

== ENCOUNTER 2021-01-16 14:27 | Emergency (ER) | payer OTHER, MEDICARE, SELFPAY ==
[2021-01-16 14:43] VITALS: BP 120/72; PULSE 89; RESP 14; TEMP 36.4; O2SAT 97; BMI 29.8
--- NOTE | 2021-01-16 16:43 | XR_ITS ---
WS: [id number] Right foot, 3 views, 01/16/2021 Clinical Data: fall/new injury; recent toe fracture Comparison: Right foot, 01/15/2021. Findings: The fracture of the distal aspect of the right forefoot proximal phalanx remains in the same position . The distal phalanx of the right great toe has been amputated. No new fractures are seen. There is a plantar spur. There is calcification in the cook of small martina schuyler. XR/XR foot RT min 3V* 50013 Impression: 1. Fracture of distal aspect of proximal phalanx of right fourth toe. 2. Amputation of the distal phalanx of the right first toe.
--- NOTE | 2021-01-16 16:44 | W.ED.LOWEXIN ---
Documented by User: PERFECTO Cason 01/17/21 09:53 HPI - Extremity Injury (Lower) General: Chief Complaint: Extremity Problem,Nontraumatic Stated Complaint: stitches (placed 01/15) ripped open on right foot Time Seen by Provider: 01/16/21 16:10 PFSH ED PFSH: Medical History Adopted Arthritis History of amputation of right great toe Stroke Surgical History History of amputation of lesser toe of left foot History of appendectomy History of carpal tunnel release History of shoulder surgery Social History Smoking and tobacco status: former smoker Alcohol intake: current Alcohol intake frequency: holidays/special occasions only Adopted: Yes Lives independently: Yes Housing: Apartment Course Vital Signs: Vital signs: Vital Signs Temperature 97.6 F 01/16/21 14:43 Pulse Rate 89 01/16/21 14:43 Respiratory Rate 14 01/16/21 14:43 Blood Pressure 120/72 01/16/21 14:43 Pulse Oximetry 97 01/16/21 14:43 MDM - Extremity Injury (Lower) MDM Narrative: Medical decision making narrative: Patient was seen briefly by myself towards the end of my shift. Patient was here yesterday and had laceration repaired. He was diagnosed with a toe fracture. Patient states he fell and believes he busted open his sutures. XR obtained to evaluate for further injury. This is currently pending. Care will be transferred to [facility]. Discharge Plan Discharge Patient Disposition: Home Clinical Impression: Wound dehiscence Laceration of toe Qualifiers: Encounter type: subsequent encounter Toe: lesser toe Damage to nail status: without damage Foreign body presence: without foreign body Laterality: right Qualified Code(s): S91.114D - Laceration without foreign body of right lesser toe(s) without damage to nail, subsequent encounter Condition: Stable Prescriptions: No Action Lantus Solostar U-100 Insulin 100 unit/mL (3 mL) insulin pen 65 unit SUBCUT .Qpm RF: 0 insulin aspart U-100 [Novolog Flexpen U-100 Insulin] 100 unit/mL (3 mL) insulin pen See Rx Instructions SUBCUT TID RF: 0 aspirin [Adult Low Dose Aspirin] 81 mg tablet,delayed release (DR/EC) 81 mg PO DAILY RF: 0 atorvastatin 80 mg tablet 80 mg PO DAILY RF: 0 bisoprolol fumarate 5 mg tablet 5 mg PO DAILY RF: 0 duloxetine 30 mg capsule,delayed release(DR/EC) 30 mg PO BID RF: 0 enalapril maleate 20 mg tablet 30 mg PO DAILY RF: 0 finasteride 5 mg tablet 5 mg PO DAILY RF: 0 gabapentin 300 mg capsule 300 mg PO TID RF: 0 isosorbide mononitrate 120 mg tablet extended release 24 hr 120 mg PO DAILY RF: 0 furosemide [Lasix] 40 mg tablet 40 mg PO BID RF: 0 meloxicam 7.5 mg tablet 7.5 mg PO BID RF: 0 methocarbamol 750 mg tablet 750 mg PO TID RF: 0 nitroglycerin 0.4 mg tablet, sublingual 0.4 mg sublingual Q5M PRNRF: 0 clopidogrel [Plavix] 75 mg tablet 75 mg PO DAILY RF: 0 potassium chloride 10 mEq tablet extended release 10 meq PO DAILY RF: 0 ranolazine [Ranexa] 1,000 mg tablet extended release 12 hr 1,000 mg PO BID RF: 0 (DME) FreeStyle Jostin 14 Day Sensor Kit See Rx Instructions .ROUTE .MEDSUPPLY Qty: 1 RF: 3 (DME) Diabetic Shoes with 3 pairs of molded inserts See Rx Instructions .ROUTE .MEDSUPPLY Qty: 1 RF: 0 Keflex 500 mg capsule 500 mg PO Q6H 7 Days Qty: 28 RF: 0 Discharge Orders: Discharge ED (Routine); Ordered 01/16/21 Ordered By: Elvia Baird Referrals: Vlad Corona, [Primary Care Provider] - Discharge Diet: Usual diet Discharge Activity: Limit activity as instructed Patient Instructions: Suture Care (ED), Laceration (ED), Opioid Safety Activity Restrictions/Additional Instructions: Do not weight-bear on the right extremity Follow-up with Dr. Gilbert, podiatry tomorrow as scheduled, do not miss this appointment as needed for wound evaluation will be needed Continue Keflex, cephalexin, antibiotic until all gone Return to the emergency department if you develop fever, redness of the wound or other concerning symptoms Coding Level of Care Code ED Transit Vehicle Inspector for [facility] Exam Comprehensive Documented by User: SANJANA Swan 01/16/21 20:25 HPI - Extremity Injury (Lower) General: Chief Complaint: Extremity Problem,Nontraumatic Stated Complaint: stitches (placed 01/15) ripped open on right foot Time Seen by Provider: 01/16/21 16:10 Source: patient Mode of arrival: ambulatory Limitations: no limitations History of Present Illness: HPI Narrative: 75-year-old male patient presents to the emergency department due to right foot problem. He reports stood on his right foot to put items in the closet, states his foot caught, noted bleeding laceration repaired yesterday. He denies pain upon exam. Injury: Right: foot Type of Injury: laceration Place: home Exacerbating factors: nothing Associated symptoms: Reports no associated symptoms Other symptoms: none Treatments prior to arrival: bandage Review of Systems General: Reports: 10 or more systems reviewed and unremarkable except in HPI and below Const: Denies: fever(s), chills or diaphoresis Eyes: Denies: blurry vision or eye redness ENMT: Denies: throat pain, dental pain or disequilibrium Card: Denies: chest pain, palpitations or irregular heart rhythm Resp: Denies: dyspnea, productive cough, non-productive cough or wheezing GI: Denies: abdominal pain, nausea or vomiting : Denies: dysuria Musc: Denies: back pain Skin/Breast: Reports: other (rt foot laceration); Denies: rash Neuro: Denies: headache(s), weakness in extremities or behavioral changes Lalo/Lymph: Denies: easy bruising PFSH ED PFSH: Medical History Adopted Arthritis History of amputation of right great toe Stroke Surgical History History of amputation of lesser toe of left foot History of appendectomy History of carpal tunnel release History of shoulder surgery Social History Smoking and tobacco status: former smoker Alcohol intake: current Alcohol intake frequency: holidays/special occasions only Adopted: Yes Lives independently: Yes Housing: Apartment Physical Exam Const: COMMON NORMALS: no acute distress, patient oriented x3, healthy appearing and alert GENERAL APPEARANCE: cooperative, comfortable and well hydrated HENMT: COMMON NORMALS: normocephalic, Normal external nose present and moist oral mucous membranes HEAD & SCALP: normocephalic NOSE: Normal external nose present Eye: COMMON NORMALS: Equal, round and reactive pupils present and EOMs intact bilaterally GENERAL EYE: appearance normal, both eyes and all related structures PUPIL: Yes Equal, round and reactive pupils present Neck/C-Spine: COMMON NORMALS: full ROM and no lymphadenopathy GENERAL: Yes normal visual inspection and Yes trachea midline CERVICAL SPINE: Yes cervical ROM normal Lymph: LYMPHATIC: no lymphadenopathy noted Chest: COMMONS NORMALS: normal inspection of the chest Resp: COMMON NORMALS: normal respiratory effort and clear to auscultation bilaterally AUSCULTATION: clear to auscultation bilaterally Cardio: COMMON NORMALS: regular rhythm, S1 normal heart sound present and S2 normal heart sound present RHYTHM: regular rhythm HEART SOUNDS: S1 normal heart sound present and S2 normal heart sound present GI: COMMON NORMALS: Soft to palpation and non-tender INSPECTION: Yes normal to inspection PALPATION: Yes Soft to palpation : COMMON NORMALS: Yes no CVA tenderness BLADDER/KIDNEY EXAM: Yes no CVA tenderness Back/Pelvis: COMMON NORMALS: no CVA tenderness and thoracic and lumbar spine normal to inspection Extremity: COMMON NORMALS: normal to inspection and capillary refill normal Neuro: COMMON NORMALS: patient oriented x3 and no focal motor deficits SENSORIUM/ORIENTATION: Yes alert Psych: COMMON NORMALS: mental status grossly normal, Normal thought process present and cooperative ACTIVITY/MOTOR BEHAVIOR: Yes appropriate eye contact THOUGHT PROCESS: Normal thought process present Skin: COMMON NORMALS: no rashes or lesions noted, turgor normal, no petechiae and no mottling GENERAL SKIN EXAM: no rashes or lesions noted, elasticity normal and turgor normal TRAUMA: laceration (Laceration between the fourth and fifth digit, open, wound dehiscence) linear, involves subcutaneous tissue and involves muscle tissue OTHER: Sutures were tore from the skin, no longer intact. Sutures placed yesterday, removed Procedures Laceration Laceration 1: Site: lower extremity (Right foot, laceration between) Side (If applicable): right Size (cm): 2.5 Description: linear Depth: simple, single layer and involves muscle layer Local Anesthetic: lidocaine 1% Amount of anesthesia used (mL): 5 Pre-repair: wound explored, irrigated extensively, deep structures intact and extensive debridement Skin layer closed with: nylon Size (cm): 4-0 Number of sutures: 5 Technique: simple, interrupted Course Vital Signs: Vital signs: Vital Signs Temperature 97.6 F 01/16/21 14:43 Pulse Rate 89 01/16/21 14:43 Respiratory Rate 14 01/16/21 14:43 Blood Pressure 120/72 01/16/21 14:43 Pulse Oximetry 97 01/16/21 14:43 Discharge Plan Discharge Patient Disposition: Home Clinical Impression: Wound dehiscence Laceration of toe Qualifiers: Encounter type: subsequent encounter Toe: lesser toe Damage to nail status: without damage Foreign body presence: without foreign body Laterality: right Qualified Code(s): S91.114D - Laceration without foreign body of right lesser toe(s) without damage to nail, subsequent encounter Condition: Stable Prescriptions: No Action Lantus Solostar U-100 Insulin 100 unit/mL (3 mL) insulin pen 65 unit SUBCUT .Qpm RF: 0 insulin aspart U-100 [Novolog Flexpen U-100 Insulin] 100 unit/mL (3 mL) insulin pen See Rx Instructions SUBCUT TID RF: 0 aspirin [Adult Low Dose Aspirin] 81 mg tablet,delayed release (DR/EC) 81 mg PO DAILY RF: 0 atorvastatin 80 mg tablet 80 mg PO DAILY RF: 0 bisoprolol fumarate 5 mg tablet 5 mg PO DAILY RF: 0 duloxetine 30 mg capsule,delayed release(DR/EC) 30 mg PO BID RF: 0 enalapril maleate 20 mg tablet 30 mg PO DAILY RF: 0 finasteride 5 mg tablet 5 mg PO DAILY RF: 0 gabapentin 300 mg capsule 300 mg PO TID RF: 0 isosorbide mononitrate 120 mg tablet extended release 24 hr 120 mg PO DAILY RF: 0 furosemide [Lasix] 40 mg tablet 40 mg PO BID RF: 0 meloxicam 7.5 mg tablet 7.5 mg PO BID RF: 0 methocarbamol 750 mg tablet 750 mg PO TID RF: 0 nitroglycerin 0.4 mg tablet, sublingual 0.4 mg sublingual Q5M PRNRF: 0 clopidogrel [Plavix] 75 mg tablet 75 mg PO DAILY RF: 0 potassium chloride 10 mEq tablet extended release 10 meq PO DAILY RF: 0 ranolazine [Ranexa] 1,000 mg tablet extended release 12 hr 1,000 mg PO BID RF: 0 (DME) FreeStyle Jostin 14 Day Sensor Kit See Rx Instructions .ROUTE .MEDSUPPLY Qty: 1 RF: 3 (DME) Diabetic Shoes with 3 pairs of molded inserts See Rx Instructions .ROUTE .MEDSUPPLY Qty: 1 RF: 0 Keflex 500 mg capsule 500 mg PO Q6H 7 Days Qty: 28 RF: 0 Discharge Orders: Discharge ED (Routine); Ordered 01/16/21 Ordered By: Elvia Baird Referrals: Vlad Corona, [Primary Care Provider] - Discharge Diet: Usual diet Discharge Activity: Limit activity as instructed Patient Instructions: Suture Care (ED), Laceration (ED), Opioid Safety Activity Restrictions/Additional Instructions: Do not weight-bear on the right extremity Follow-up with Dr. Gilbert, podiatry tomorrow as scheduled, do not miss this appointment as needed for wound evaluation will be needed Continue Keflex, cephalexin, antibiotic until all gone Return to the emergency department if you develop fever, redness of the wound or other concerning symptoms Coding Level of Care Code ED Transit Vehicle Inspector for [facility] Exam Comprehensive
== END 2021-01-16 18:41 | disposition home or self-care (01) ==
PROVIDERS: Emergency Provider Physician Assistant; PCP Emergency Medicine Emergency Medical Services
DX: S91.114A Laceration without foreign body of right lesser toe(s) without damage to nail, initial encounter (principal); Z79.4 Long term (current) use of insulin; Z79.82 Long term (current) use of aspirin; Z79.02 Long term (current) use of antithrombotics/antiplatelets; Z86.73 Personal history of transient ischemic attack (TIA), and cerebral infarction without residual deficits; Z87.891 Personal history of nicotine dependence; X58.XXXA Exposure to other specified factors, initial encounter
CPT/HCPCS: 12001; 73630; 99282

== ENCOUNTER → 2021-01-31 11:18 | Outpatient (BNVA) | payer OTHER, SELFPAY | PROVIDERS: PCP Emergency Medicine Emergency Medical Services; Visit Provider Podiatrist Foot & Ankle Surgery | DX: S92.511B Displaced fracture of proximal phalanx of right lesser toe(s), initial encounter for open fracture (principal); X58.XXXA Exposure to other specified factors, initial encounter | CPT/HCPCS: 73630 ==

== ENCOUNTER → 2021-02-21 16:17 | Outpatient (BNVA) | payer OTHER, SELFPAY | PROVIDERS: PCP Emergency Medicine Emergency Medical Services; Visit Provider Podiatrist Foot & Ankle Surgery | DX: S92.511B Displaced fracture of proximal phalanx of right lesser toe(s), initial encounter for open fracture (principal); L97.421 Non-pressure chronic ulcer of left heel and midfoot limited to breakdown of skin; M79.673 Pain in unspecified foot; X58.XXXA Exposure to other specified factors, initial encounter | CPT/HCPCS: 73630; 87070; 87075; 87077; 87186; 87205 ==

== ENCOUNTER → 2021-05-22 12:04 | Outpatient (BNVA) | payer OTHER, SELFPAY | PROVIDERS: PCP Emergency Medicine Emergency Medical Services; Visit Provider Podiatrist Foot & Ankle Surgery | DX: S92.512A Displaced fracture of proximal phalanx of left lesser toe(s), initial encounter for closed fracture (principal); L97.522 Non-pressure chronic ulcer of other part of left foot with fat layer exposed; M79.672 Pain in left foot; S90.32XA Contusion of left foot, initial encounter; L60.1 Onycholysis; X58.XXXA Exposure to other specified factors, initial encounter | CPT/HCPCS: 73630 ==

== ENCOUNTER 2021-05-22 15:15 | Outpatient (CLI) | payer OTHER, SELFPAY | END 2021-05-22 15:16 | disposition home or self-care (01) | LOC: SPT 15:16 | PROVIDERS: PCP Emergency Medicine Emergency Medical Services; Visit Provider Podiatrist Foot & Ankle Surgery | DX: Z46.89 Encounter for fitting and adjustment of other specified devices (principal); M79.673 Pain in unspecified foot; S92.511D Displaced fracture of proximal phalanx of right lesser toe(s), subsequent encounter for fracture with routine healing; S90.32XD Contusion of left foot, subsequent encounter; L60.1 Onycholysis; L97.522 Non-pressure chronic ulcer of other part of left foot with fat layer exposed; X58.XXXD Exposure to other specified factors, subsequent encounter | CPT/HCPCS: 87070; 87075; 87077; 87186; 87205; 97760; L4361 ==

== ENCOUNTER 2021-08-22 09:30 | Outpatient (CLI) | payer OTHER, SELFPAY | END 2021-08-22 09:31 | disposition home or self-care (01) | PROVIDERS: PCP Emergency Medicine Emergency Medical Services; Visit Provider Emergency Medicine | DX: E11.621 Type 2 diabetes mellitus with foot ulcer (principal); L97.522 Non-pressure chronic ulcer of other part of left foot with fat layer exposed; L97.412 Non-pressure chronic ulcer of right heel and midfoot with fat layer exposed; E11.622 Type 2 diabetes mellitus with other skin ulcer; L97.311 Non-pressure chronic ulcer of right ankle limited to breakdown of skin; Z87.891 Personal history of nicotine dependence | CPT/HCPCS: 11042; 87070; 87077; 87176; 87186; 87205; G0463 ==

== ENCOUNTER 2021-08-29 10:30 | Outpatient (CLI) | payer OTHER, SELFPAY | END 2021-08-29 10:31 | disposition home or self-care (01) | LOC: WOUND 10:31 | PROVIDERS: PCP Emergency Medicine Emergency Medical Services; Visit Provider Emergency Medicine | DX: E11.621 Type 2 diabetes mellitus with foot ulcer (principal); L97.411 Non-pressure chronic ulcer of right heel and midfoot limited to breakdown of skin; E11.622 Type 2 diabetes mellitus with other skin ulcer; L97.312 Non-pressure chronic ulcer of right ankle with fat layer exposed; Z87.891 Personal history of nicotine dependence | CPT/HCPCS: 11042; 99212 ==

== ENCOUNTER 2021-09-05 10:17 | Outpatient (CLI) | payer OTHER, SELFPAY | END 2021-09-05 10:18 | disposition home or self-care (01) | LOC: WOUND 10:18 | PROVIDERS: PCP Emergency Medicine Emergency Medical Services; Visit Provider Nurse Practitioner Family | DX: E11.621 Type 2 diabetes mellitus with foot ulcer (principal); L97.412 Non-pressure chronic ulcer of right heel and midfoot with fat layer exposed; E11.622 Type 2 diabetes mellitus with other skin ulcer; L97.312 Non-pressure chronic ulcer of right ankle with fat layer exposed; M06.9 Rheumatoid arthritis, unspecified; Z87.891 Personal history of nicotine dependence | CPT/HCPCS: 11042 ==

== ENCOUNTER 2021-09-12 10:25 | Outpatient (CLI) | payer OTHER, SELFPAY | END 2021-09-12 10:26 | disposition home or self-care (01) | LOC: WOUND 10:26 | PROVIDERS: PCP Emergency Medicine Emergency Medical Services; Visit Provider Nurse Practitioner Family | DX: E11.622 Type 2 diabetes mellitus with other skin ulcer (principal); L97.319 Non-pressure chronic ulcer of right ankle with unspecified severity; Z87.891 Personal history of nicotine dependence | CPT/HCPCS: G0463 ==

== ENCOUNTER 2021-09-30 14:22 | Outpatient (CLI) | payer OTHER, SELFPAY ==
--- NOTE | 2021-09-30 14:30 | USCV_ITS ---
Immanuel Dumont Age: 76 Gender: M : 1945 Exam Date: 09/30/2021 15:07 Ordering Phys: Christina Dooley DO Technologist: Zahida Alfonso Exam Location: [facility] [place]_ Indication: HISTORY: PROCEDURES: FINDINGS: PT NOT GOOD CANDIDATE FOR VENOUS ABLATION The veins were found to be easily compressible with spontaneous blood flow. Non pulsatile flow pattern. Venous reflux of the identified milliseconds was noted at the right saphenofemoral junction. No other significant venous reflux CONCLUSIONS 1. Normal venous dimensions bilaterally 2. The superficial veins, mostly seems to be less than 1 cm deep from the surface. 3. No significant venous reflux except at the right saphenofemoral junction. 4. The venous dimensions and the depth from the surface are as as mentioned above Dr Sukhjinder Lawrence MD [facility] (Electronically Signed) Final Date: 30 September 2021 17:14 S
== END 2021-09-30 14:23 | disposition home or self-care (01) ==
LOC: RAD 14:25
PROVIDERS: PCP Emergency Medicine Emergency Medical Services; Visit Provider Emergency Medicine
DX: E11.621 Type 2 diabetes mellitus with foot ulcer (principal)
CPT/HCPCS: 93970

== ENCOUNTER 2021-10-02 13:21 | Outpatient (CLI) | payer OTHER, SELFPAY | END 2021-10-02 13:22 | disposition home or self-care (01) | PROVIDERS: PCP Emergency Medicine Emergency Medical Services; Visit Provider Nurse Practitioner Family | DX: I96 Gangrene, not elsewhere classified (principal); E11.621 Type 2 diabetes mellitus with foot ulcer; L97.821 Non-pressure chronic ulcer of other part of left lower leg limited to breakdown of skin; Z87.891 Personal history of nicotine dependence | CPT/HCPCS: 11042 ==

== ENCOUNTER 2021-10-07 11:06 | Outpatient (CLI) | payer OTHER, SELFPAY ==
--- NOTE | 2021-10-07 12:45 | USCV_ITS ---
Immanuel Dumont Age: 76 Gender: M : 1945 Exam Date: 10/07/2021 11:39 Ordering Phys: Christina Dooley DO Technologist: May Fried Exam Location: [facility] – [place] Indication: DM TYPE 2 WITH ULCER/ATHEROSCLEROSIS RIGHT LEFT Brachial 136.00 mmHg Brachial 129.00 mmHg Pressure (mmHg) Waveform Pressure (mmHg) Waveform 155.00 Above Knee 194.00 161.00 Below Knee 148.00 UNDERWRITING SUPPORT SPECIALIST 144.00 160.00 DPA 141.00 Ankle/Brachial Index 1.06 45.00 Pre-Exercise Toe Pressure 78.00 Pre-Exercise Toe/Brachial Index 0.57 0.33 FINDINGS RT UNDERWRITING SUPPORT SPECIALIST >220 RT SECOND TOE USED FOR TBI Noncompressible vessels in the right ankle Normal resting ALMA on the left side Moderately diminished resting TBI on the right side Minimally diminished resting TBI on the left side CONCLUSIONS Abnormal restingTBI on the right side, suggestive of moderate to severe peripheral artery disease involving the distal vessels Minimally diminished resting TBI on the left side, suggestive of mild peripheral artery disease Dr Sukhjinder Lawrence MD [facility] (Electronically Signed) Final Date: 10 October 2021 00:09 S
== END 2021-10-07 11:07 | disposition home or self-care (01) ==
PROVIDERS: PCP Emergency Medicine Emergency Medical Services; Visit Provider Emergency Medicine
DX: E11.621 Type 2 diabetes mellitus with foot ulcer (principal); I70.90 Unspecified atherosclerosis
CPT/HCPCS: 93923

== ENCOUNTER 2021-10-07 11:07 | Outpatient (CLI) | payer OTHER, SELFPAY ==
--- NOTE | 2021-10-07 11:45 | USCV_ITS ---
Immanuel Dumont Age: 76 Gender: M : 1945 Exam Date: 10/07/2021 11:34 Ordering Phys: Ruby Rojas MD ([email or web address]) Technologist: May Fried [place]am [place] [facility] [place]ication: ATHEROSCLEROTIC HEART DISEASE OF [place] CORONARY ARTERIES BP: 138 / 67 HR: 84 Rhythm: Sinus Technical Quality: Adequate MEASUREMENTS (Male / Female) Normal Values 2D ECHO LVOT Diameter 2.2 cm LV Ejection Fraction MOD 2C 63.2 % LV Ejection Fraction 2C AL 64.8 % LA Diameter 2.9 cm LA Width 3.1 cm LA Height 4.8 cm RA Width 3.4 cm RA Height 4.5 cm Aorta at Sinotubular Diameter 3.5 cm M-MODE Aortic Annulus Diameter 3.9 cm LA Ao Ratio MM 0.8 MV E Point Septal Separation 1.0 cm DOPPLER AV Peak Velocity 125.0 cm/s LVOT Peak Velocity 81.0 cm/s AV Area Cont Eq vti 2.6 cm squared AV Area Cont Eq pk 2.4 cm squared MV Peak Velocity 110.0 cm/s MV Area PHT 5.5 cm squared Mitral E to A Ratio 0.6 MV E' Velocity 39.5 cm/s Mitral E to MV E' Ratio 16.4 Mitral E to LV E' Lateral Ratio 16.0 Mitral E to LV E' Septal Ratio 17.1 TR Peak Velocity 67.0 cm/s TR Peak Gradient 1.8 mmHg Right Atrial Pressure 3.0 mmHg Pulmonary Artery Systolic Pressu 4.8 mmHg PV Peak Velocity 105.0 cm/s RV Acceleration Time 0.1 s RV Ejection Time 0.2 s RV AcT/ET 0.5 FINDINGS Left Ventricle Normal left ventricular size, systolic function and wall thickness, with no regional wall motion abnormalities. Left ventricular ejection fraction is estimated at 65 %. Grade I diastolic dysfunction (abnormal relaxation filling pattern), normal to mildly elevated filling pressures. Right Ventricle Normal right ventricular size and systolic function. Right ventricular systolic pressure 4.8 mmHg. Right Atrium Normal right atrial size. Right atrial pressure estimated at 3 mm Hg. Aneurysmal interatrial septum. Left Atrium Normal left atrial size. Mitral Valve Structurally normal mitral valve. No mitral valve stenosis. Trace mitral valve regurgitation. Aortic Valve Mildly thickened and calcified trileaflet aortic valve. Aortic valve sclerosis without stenosis. Mild to moderate aortic valve regurgitation. Tricuspid Valve Structurally normal tricuspid valve. Trace tricuspid valve regurgitation. Pulmonic Valve Structurally normal pulmonic valve. No pulmonary valve stenosis. Trace pulmonary valve regurgitation. Pericardium No pericardial effusion. Aorta Normal-sized aortic root and ascending aorta. Normal-sized inferior vena cava. CONCLUSIONS 1. Normal left ventricular size, systolic function and wall thickness, with no regional wall motion abnormalities. Left ventricular ejection fraction is estimated at 65 %. Grade I diastolic dysfunction (abnormal relaxation filling pattern), normal to mildly elevated filling pressures. 2. Mildly thickened and calcified trileaflet aortic valve. Mild to moderate aortic valve regurgitation. 3. No prior similar studies to compare. Ruby Rojas MD (Electronically Signed) Final Date: 10 October 2021 14:22 S
== END 2021-10-07 11:08 | disposition home or self-care (01) ==
PROVIDERS: PCP Emergency Medicine Emergency Medical Services; Visit Provider Internal Medicine Cardiovascular Disease
DX: I25.10 Atherosclerotic heart disease of native coronary artery without angina pectoris (principal); I35.8 Other nonrheumatic aortic valve disorders
CPT/HCPCS: 93306; C8929

== ENCOUNTER 2021-10-17 13:01 | Outpatient (CLI) | payer OTHER, SELFPAY | END 2021-10-17 13:02 | disposition home or self-care (01) | LOC: WOUND 13:03 | PROVIDERS: PCP Emergency Medicine Emergency Medical Services; Visit Provider Emergency Medicine | DX: E11.622 Type 2 diabetes mellitus with other skin ulcer (principal); L97.822 Non-pressure chronic ulcer of other part of left lower leg with fat layer exposed | CPT/HCPCS: 11042; 99212 ==

== ENCOUNTER 2021-10-24 10:43 | Outpatient (CLI) | payer OTHER, SELFPAY | END 2021-10-24 10:44 | disposition home or self-care (01) | LOC: WOUND 10:44 | PROVIDERS: PCP Emergency Medicine Emergency Medical Services; Visit Provider Nurse Practitioner Family | DX: E11.59 Type 2 diabetes mellitus with other circulatory complications (principal); E11.40 Type 2 diabetes mellitus with diabetic neuropathy, unspecified; E11.65 Type 2 diabetes mellitus with hyperglycemia; I25.10 Atherosclerotic heart disease of native coronary artery without angina pectoris; L97.509 Non-pressure chronic ulcer of other part of unspecified foot with unspecified severity; E78.2 Mixed hyperlipidemia; Z87.891 Personal history of nicotine dependence; Z79.4 Long term (current) use of insulin | CPT/HCPCS: 11042; 99214; A6212 ==

== ENCOUNTER 2021-10-29 08:55 | Outpatient (CLI) | payer OTHER, SELFPAY ==
[2021-10-29 09:47] LABS: Basophils # 0.1 10^3/uL (0.0-0.1); Basophils % 1.1 %; Eosinophils # 0.3 10^3/uL (0.0-0.8); Eosinophils % 2.8 %; Hematocrit 43.9 % (42.0-52.0); Hemoglobin 15.6 g/dL (11.7-16.6); Lymphocytes # 2.2 10^3/uL (0.8-4.8); Lymphocytes % 23.9 %; Mean Corpuscular HGB Conc 35.5 g/dL (30.0-36.0); Mean Corpuscular Hemoglobin 32.3 pg (28.0-34.0); Mean Corpuscular Volume 90.9 fl (80-94); Mean Platelet Volume 10.4 fL (7.4-10.4); Monocytes # 0.8 10^3/uL (0.2-0.9); Monocytes % 8.8 %; Neutrophils # 5.72 10^3/uL (1.8-7.7); Neutrophils % 62.8 %; Nucleated Red Blood Cells % 0 %; Platelet Count 130 10^3/cmm (130-400); Red Blood Count 4.83 10^6/uL (4.1-5.3); Red Cell Distribution Width 12.6 % (12.1-15.1); White Blood Count 9.1 10^3/uL (4.0-10.0)
[2021-10-29 12:43] LABS: Ferritin 215 ng/mL (30-400)
--- NOTE | 2021-11-15 09:09 | ONC FU_ITS ---
Dr. Novak follow up note Patient: Immanuel Dumont Unit #: [id number]: 1945 Dicatated By: Hamlet Novak M.D.Date of Visit:Oct 29, 2021 Onc Med Follow-up/Prog Note History of Present Illness: Mr. 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 His past medical history significant for insulin-dependent diabetes mellitus, coronary artery disease, as per daughter medical management only. Diabetic foot ulcers. Denies any specific complaints, no fever chills, no nausea or vomiting, no diarrhea constipation, no headaches blurred vision or double vision. Denies any specific complaint today denies any fever chills denies any nausea or vomiting denies any diarrhea or constipation, as per patient no history of special scan to check iron overload done in the past. Came for follow-up, denies any specific complaints, patient was supposed to come back a month after his last visit on November 14, 2020 , rescheduled follow-up appointment many times and eventually decided to follow-up with PMD until today, denies any complaints, no headaches no blurred vision no double vision, no fever chills, no nausea or vomiting, no weight loss as per patient he underwent echocardiogram on October 07, 2021 which shows normal left ventricle size, systolic function and wall thickness. Ejection fraction 65%. Medications: Aspirin 81 1 Tablet (of 81 mg) Tablet, chewable Oral daily, Atorvastatin Calcium 1 Tablet (of 80 mg) Oral daily, DULoxetine HCl 1 Capsule (of 30 mg) Capsule Delayed Release Particles Oral b.i.d., Finasteride 1 Tablet (of 5 mg) Oral daily, Furosemide 1 Tablet (of 20 mg) Oral daily, Gabapentin 1 Capsule (of 300 mg) Oral t.i.d., Isosorbide Mononitrate ER 1 Tablet (of 120 mg) Tablet SR 24 HR Oral daily, Methocarbamol 1 Tablet (of 750 mg) Oral t.i.d., Nitrostat 1 Tablet (of 0.4 mg) Tablet, sublingual Sublingual PRN, Plavix 1 Tablet (of 75 mg) Oral daily, Ranexa 1 Tablet (of 1000 mg) Tablet SR 12 HR Oral b.i.d. Allergies: Dulaglutide, Empagliflozin, Liraglutide, and Pregabalin. Review of Systems: Review of Systems is not available for this patient. Vital Signs: Performed on Oct 29, 2021 12:43 Height - 72.00 in Temperature - 97.6 F (LOW) Pulse - 80 /min Respiration - 18 /min BP - 133/71 mm(hg) O2 Sat - 96 % Pain - 0 Fatigue - 2 Performance Status: 1 - No physically strenuous activity, but ambulatory and able to carry out light or sedentary work (e.g. office work, light house work). (ECOG) Physical Examination: ENMT - No mouth sores, no thrush, no jaundice, Respiratory - Lungs are clear to auscultation, Cardiovascular - Regular rate and rhythm of heart, Abdomen - Soft, bowel sounds present, Extremities - Trace edema bilaterally. Lab/Imaging: Most recent lab results are not available for this patient. Impression: History of hemochromatosis, as per patient he was diagnosed in 2011 or 13 at [facility] in [place], at that time genetic testing was positive for HFE gene and his ferritin was more than 2000 and he was treated with frequent phlebotomies. Insulin-dependent diabetes mellitus Diabetic foot History of coronary artery disease, Plan: Discussed with patient regarding his labs white blood count 9.1 hemoglobin 15.6 hematocrit 43.9 platelets 130,000 with normal differential, ferritin is 215 Clinically, patient is doing well with no new signs symptoms. As far as hemochromatosis concerned, goal is to keep his ferritin less than 50, or if possible less than 25 to minimize risk of iron deposition in organs due to hemochromatosis. As his ferritin is elevated, will consider phlebotomy every 2 weeks to keep ferritin below 50 as long as he is maintaining his hemoglobin normal range and tolerating phlebotomies. Return to clinic in 1 month with CBC and ferritin Signed By: Hamlet Novak M.D. <<Signature on File>>
== END 2021-10-29 08:56 | disposition home or self-care (01) ==
PROVIDERS: PCP Emergency Medicine Emergency Medical Services; Visit Provider Internal Medicine Hematology & Oncology
DX: E83.110 Hereditary hemochromatosis (principal); E11.59 Type 2 diabetes mellitus with other circulatory complications; I25.10 Atherosclerotic heart disease of native coronary artery without angina pectoris; E11.621 Type 2 diabetes mellitus with foot ulcer; L97.509 Non-pressure chronic ulcer of other part of unspecified foot with unspecified severity; Z79.4 Long term (current) use of insulin; Z79.899 Other long term (current) drug therapy
CPT/HCPCS: 36415; 82728; 85025; 99214

== ENCOUNTER 2021-10-31 10:16 | Outpatient (CLI) | payer OTHER, SELFPAY | END 2021-10-31 10:17 | disposition home or self-care (01) | LOC: WOUND 10:16 | PROVIDERS: PCP Emergency Medicine Emergency Medical Services; Visit Provider Nurse Practitioner Family | DX: E11.622 Type 2 diabetes mellitus with other skin ulcer (principal); L97.312 Non-pressure chronic ulcer of right ankle with fat layer exposed; S61.201A Unspecified open wound of left index finger without damage to nail, initial encounter; X58.XXXA Exposure to other specified factors, initial encounter; Z87.891 Personal history of nicotine dependence | CPT/HCPCS: 11042 ==

== ENCOUNTER 2021-10-31 11:01 | Outpatient (CLI) | payer OTHER, SELFPAY | END 2021-10-31 11:02 | disposition home or self-care (01) | PROVIDERS: PCP Emergency Medicine Emergency Medical Services; Visit Provider Emergency Medicine Emergency Medical Services | DX: E83.110 Hereditary hemochromatosis (principal) | CPT/HCPCS: 99195 ==

== ENCOUNTER 2021-11-07 09:57 | Outpatient (CLI) | payer OTHER, SELFPAY | END 2021-11-07 09:58 | disposition home or self-care (01) | LOC: WOUND 09:58 | PROVIDERS: PCP Emergency Medicine Emergency Medical Services; Visit Provider Nurse Practitioner Family | DX: E11.622 Type 2 diabetes mellitus with other skin ulcer (principal); L97.311 Non-pressure chronic ulcer of right ankle limited to breakdown of skin; Z87.891 Personal history of nicotine dependence | CPT/HCPCS: 11042 ==

== ENCOUNTER 2021-11-20 13:35 | Outpatient (CLI) | payer OTHER, SELFPAY ==
[2021-11-20 14:28] LABS: Basophils # 0.1 10^3/uL (0.0-0.1); Basophils % 1.2 %; Eosinophils # 0.2 10^3/uL (0.0-0.8); Eosinophils % 2.6 %; Hematocrit 40.2 % (42.0-52.0); Hemoglobin 14.3 g/dL (11.7-16.6); Lymphocytes # 2.3 10^3/uL (0.8-4.8); Lymphocytes % 26.8 %; Mean Corpuscular HGB Conc 35.6 g/dL (30.0-36.0); Mean Corpuscular Hemoglobin 32.9 pg (28.0-34.0); Mean Corpuscular Volume 92.4 fl (80-94); Mean Platelet Volume 10.4 fL (7.4-10.4); Monocytes # 0.8 10^3/uL (0.2-0.9); Monocytes % 9.3 %; Neutrophils # 5.06 10^3/uL (1.8-7.7); Nucleated Red Blood Cells % 0 %; Platelet Count 153 10^3/cmm (130-400); Red Blood Count 4.35 10^6/uL (4.1-5.3); Red Cell Distribution Width 12.9 % (12.1-15.1); White Blood Count 8.6 10^3/uL (4.0-10.0)
[2021-11-20 14:45] LABS: Ferritin 163 ng/mL (30-400)
== END 2021-11-20 13:36 | disposition home or self-care (01) ==
LOC: ONCMED 13:39
PROVIDERS: Internal Medicine Hematology & Oncology; PCP Emergency Medicine Emergency Medical Services; Visit Provider Nurse Practitioner Family
DX: E83.119 Hemochromatosis, unspecified (principal)
CPT/HCPCS: 36415; 82728; 85025; 99195

== ENCOUNTER 2021-11-21 10:21 | Outpatient (CLI) | payer OTHER, SELFPAY | END 2021-11-21 10:22 | disposition home or self-care (01) | LOC: WOUND 10:21 | PROVIDERS: PCP Emergency Medicine Emergency Medical Services; Visit Provider Emergency Medicine | DX: E11.622 Type 2 diabetes mellitus with other skin ulcer (principal); L97.312 Non-pressure chronic ulcer of right ankle with fat layer exposed; S61.201A Unspecified open wound of left index finger without damage to nail, initial encounter; S81.812A Laceration without foreign body, left lower leg, initial encounter; X58.XXXA Exposure to other specified factors, initial encounter; Z87.891 Personal history of nicotine dependence | CPT/HCPCS: 11042 ==

== ENCOUNTER 2021-12-15 21:37 | Emergency (ER) | payer OTHER, MEDICARE, SELFPAY ==
[2021-12-15 21:41] VITALS: RESP 18; O2SAT 97; BMI 31.1
[2021-12-15 21:45] VITALS: BP 154/89; PULSE 92; TEMP 36.6
--- NOTE | 2021-12-15 21:55 | ECG_ITS ---
[facility] Test Date: 2021-12-15 Pat Name: Immanuel Dumont Department: Room: Gender: Male Program Support Specialist: : 1945 Requested By: Sukhjinder Perez Order Number: [id number] Ramone MD: Ruby Rojas M.D. Measurements Intervals [place] Rate: 90 P: 53 KS: 198 QRS: 98 QRSD: 154 T: -50 QT: 340 QTc: 417 Interpretive Statements SINUS RHYTHM RIGHT BUNDLE BRANCH BLOCK [120+ ms QRS DURATION, UPRIGHT V1, 40+ ms S IN I/aVL/V4/V5/V6] ST DEVIATION AND MODERATE T-WAVE ABNORMALITY, CONSIDER INFERIOR ISCHEMIA [-0.1+ mV T-WAVE IN II/aVF] Compared to ECG 12/29/2020 20:09:12 T-wave abnormality now present Possible ischemia now present Sinus tachycardia no longer present Electronically Signed On 12-16-2021 8:47:03 AGRICULTURAL INSPECTOR by Ruby Rojas M.D. [id number]
--- NOTE | 2021-12-15 21:55 | XRR_ITS ---
PROCEDURE INFORMATION: Exam: XR Chest Exam date and time: 12/15/2021 9:55 PM Age: 76 years old Clinical indication: Cough TECHNIQUE: Imaging protocol: XR of the chest. Views: 1 view. COMPARISON: CR XR chest 1V portable [id number] 12/29/2020 6:23 PM FINDINGS: Lungs: There are some strandy and patchy opacity seen in the left mid and lower hemithorax, findings compatible with atelectasis versus pneumonitis. Pleural spaces: Unremarkable. No pleural effusion. No pneumothorax. Heart/Mediastinum: Unremarkable. No cardiomegaly. Bones/joints: Unremarkable. XR/XR chest 1V portable [id number] IMPRESSION: Strandy and patchy opacities in the left mid and lower hemithorax compatible with atelectasis versus pneumonitis.
[2021-12-15 22:01] LABS: Basophils # 0.1 10^3/uL (0.0-0.1); Basophils % 0.8 %; Eosinophils # 0.2 10^3/uL (0.0-0.8); Hematocrit 43.2 % (42.0-52.0); Hemoglobin 14.8 g/dL (11.7-16.6); Lymphocytes # 2.5 10^3/uL (0.8-4.8); Lymphocytes % 24.5 %; Mean Corpuscular HGB Conc 34.3 g/dL (30.0-36.0); Mean Corpuscular Hemoglobin 31.8 pg (28.0-34.0); Mean Corpuscular Volume 92.7 fl (80-94); Mean Platelet Volume 10.2 fL (7.4-10.4); Monocytes % 9.7 %; Neutrophils # 6.35 10^3/uL (1.8-7.7); Neutrophils % 62.5 %; Nucleated Red Blood Cells % 0 %; Platelet Count 180 10^3/cmm (130-400); Red Blood Count 4.66 10^6/uL (4.1-5.3); White Blood Count 10.1 10^3/uL (4.0-10.0)
--- NOTE | 2021-12-15 22:11 | W.ED.SOB ---
HPI - SOB/Dyspnea General: Chief Complaint: Shortness of Breath/Dyspnea Stated Complaint: SOB Time Seen by Provider: 12/15/21 21:42 History of Present Illness: HPI Narrative: Mr. Dumont is a 76-year-old gentleman with significant past medical history of CHF, recurrent pneumonia, diabetes who presents emergency department due to cough. Symptom onset was gradual today with productive cough and coarse breath sounds. He endorses minimal shortness of breath associated with this however not significant. He thinks perhaps this is related to him trying to decrease leg swelling and being slightly more immobile with raise legs. He denies choking episodes or history of aspiration. No chest pain. Cough is moderate in intensity. Course has persisted. No other specific changes in health, exacerbating, relieving factors. Pertinent past history: congestive heart failure and diabetes Onset (ago): hour(s) Severity: mild Exacerbating factors: exertion and coughing Relieving factors: nothing Known history of: congestive heart failure, diabetes and recurrent pneumonia Associated symptoms: Reports cough Review of Systems General: Reports: 10 or more systems reviewed and unremarkable except in HPI and below PFSH ED PFSH: Medical History (Updated 12/15/21 @ 23:07 by Sukhjinder Perez MD) Adopted Arthritis CHF (congestive heart failure), NYHA class III Coronary artery disease Hematospermia History of amputation of right great toe HTN (hypertension) Hyperlipidemia PAD (peripheral artery disease) Stroke Surgical History History of amputation of lesser toe of left foot History of appendectomy History of carpal tunnel release History of shoulder surgery Family History Other Hypertension Social History Smoking and tobacco status: former smoker Alcohol intake: current Alcohol intake frequency: holidays/special occasions only Adopted: Yes Lives independently: Yes Housing: Apartment Physical Exam Const: COMMON NORMALS: alert GENERAL APPEARANCE: cooperative and well developed HENMT: COMMON NORMALS: normocephalic and atraumatic HEAD & SCALP: normocephalic and atraumatic THROAT: posterior oropharynx normal Eye: COMMON NORMALS: conjunctivae normal CONJUNCTIVA: Yes conjunctivae normal SCLERA: sclerae normal Neck/C-Spine: COMMON NORMALS: supple GENERAL: Yes trachea midline Resp: COMMON NORMALS: normal respiratory effort EFFORT & INSPECTION: Yes able to speak in complete sentences AUSCULTATION: rhonchi lower bilaterally Cardio: COMMON NORMALS: regular rate and regular rhythm RATE: regular rate RHYTHM: regular rhythm GI: COMMON NORMALS: Soft to palpation PALPATION: Yes Soft to palpation and No Tenderness to palpation present (GI) PERCUSSION: normal to percussion Extremity: GENERAL: Yes normal exam except as noted and No edema Neuro: COMMON NORMALS: moves all extremities SENSORIUM/ORIENTATION: Yes alert and No Orientation impaired Psych: COMMON NORMALS: mental status grossly normal and Normal thought process present THOUGHT PROCESS: Normal thought process present Course ED course: - Patient was seen and evaluated by me at bedside - Patient placed on cardiac monitors, IV access obtained - Initial evaluation notable for exam as above, no evidence of volume overload - Labs notable for minimal leukocytosis. - Imaging notable for strandy and patchy opacity in the left mid and lower lung which given context of patient's symptoms likely represents pneumonia. - Upon serial reexamination after treatment the patient was similar. He was adamantly opposed to being admitted or further testing. Antibiotics will be given - Based on patient history, evaluation, labs, and imaging as interpreted the most likely cause of the patient's condition is pneumonia. No evidence of sepsis. - The results of ED evaluation were discussed with the patient including prescriptions and/or symptomatic cares (if applicable) including appropriate and responsible use, followup plan, and return precautions. The patient verbalized understanding and felt safe for discharge. - Patient discharged in satisfactory condition. Note: Click bubbles or prepopulated abel in note writing are used for assistance with data collection and billing and are inherently more limited than narrative and other text portions of this note. Please use narrative for additional clinical history and defer to narrative/free test for any case of contradictory information. If information appears in only free text or click bubble it should be considered present or absent as reported. Please contact note investment underwriter for clarifications of clinical information or contradictory information. MDM is a brief summary, contradictory or erroneous seeming information should be clarified and full note should be reviewed. Vital Signs: Vital signs: Vital Signs Temperature 97.8 F 12/15/21 21:45 Pulse Rate 93 12/15/21 23:14 Respiratory Rate 20 H 12/15/21 23:07 Blood Pressure 154/81 12/15/21 22:25 Pulse Oximetry 90 12/15/21 23:07 MDM - SOB/Dyspnea Medical Decision Making 76-year-old gentleman with history of recurrent pneumonia presenting with 1 day history of cough. ED evaluation consistent with likely pneumonia. Patient will be treated with antibiotics outpatient. Medical Records I reviewed the patient's medical records. Lab Data I reviewed the patient's lab results. : 12/15/21 21:40 12/15/21 21:40 Labs/Radiology: Radiology Impressions Chest X-Ray 12/15/21 21:55 IMPRESSION: Strandy and patchy opacities in the left mid and lower hemithorax compatible with atelectasis versus pneumonitis. Laboratory Results WBC 10.1 10^3/uL (4.0-10.0) H 12/15/21 21:40 RBC 4.66 10^6/uL (4.1-5.3) 12/15/21 21:40 Hgb 14.8 g/dL (11.7-16.6) 12/15/21 21:40 Hct 43.2 % (42.0-52.0) 12/15/21 21:40 MCV 92.7 fl (80-94) 12/15/21 21:40 MCH 31.8 pg (28.0-34.0) 12/15/21 21:40 MCHC 34.3 g/dL (30.0-36.0) 12/15/21 21:40 RDW 13.0 % (12.1-15.1) 12/15/21 21:40 Plt Count 180 10^3/cmm (130-400) 12/15/21 21:40 MPV 10.2 fL (7.4-10.4) 12/15/21 21:40 Neut % (Auto) 62.5 % 12/15/21 21:40 Lymph % (Auto) 24.5 % 12/15/21 21:40 Sebastian % (Auto) 9.7 % 12/15/21 21:40 Eos % (Auto) 2.0 % 12/15/21 21:40 Baso % (Auto) 0.8 % 12/15/21 21:40 Neut # (Auto) 6.35 10^3/uL (1.8-7.7) 12/15/21 21:40 Lymph # (Auto) 2.5 10^3/uL (0.8-4.8) 12/15/21 21:40 Sebastian # (Auto) 1.0 10^3/uL (0.2-0.9) H 12/15/21 21:40 Eos # (Auto) 0.2 10^3/uL (0.0-0.8) 12/15/21 21:40 Baso # (Auto) 0.1 10^3/uL (0.0-0.1) 12/15/21 21:40 Nucleated RBC % (auto) 0 % 12/15/21 21:40 Nucleated RBCs # 0.0 /100WBC 12/15/21 21:40 Sodium 134 mmol/L (136-145) L 12/15/21 21:40 Potassium 4.3 mmol/L (3.5-5.1) 12/15/21 21:40 Chloride 99 mmol/L (98-107) 12/15/21 21:40 Carbon Dioxide 23 mmol/L (22-29) 12/15/21 21:40 Anion Gap 16.3 (5-19) 12/15/21 21:40 BUN 14 mg/dL (8-23) 12/15/21 21:40 Creatinine 0.6 mg/dL (0.7-1.2) L 12/15/21 21:40 GFR Calculation Not Reportable 12/15/21 21:40 Glucose 246 mg/dL (65-115) H 12/15/21 21:40 Calculated Osmolality 287 mOsm/kg (285-295) 12/15/21 21:40 Lactic Acid 2.0 mmol/L (0.5-2.2) 12/15/21 21:40 Calcium 8.9 mg/dL (8.5-10.5) 12/15/21 21:40 Total Bilirubin 0.5 mg/dL (0.15-1.2) 12/15/21 21:40 AST 18 U/L (0-40) 12/15/21 21:40 ALT 15 U/L (0-41) 12/15/21 21:40 Alkaline Phosphatase 206 IU/L (40-130) H 12/15/21 21:40 Total Protein 6.7 g/dL (6.6-8.7) 12/15/21 21:40 Albumin 3.6 g/dL (3.5-5.2) 12/15/21 21:40 Globulin 3.1 g/dL (1.3-4.6) 12/15/21 21:40 SARS-CoV-2 Ag (Rapid) Negative (Negative) 12/15/21 22:04 EKG Data EKG 1: Interpretation: Twelve-lead EKG shows a regular rhythm at a rate of 90. WI interval 198, QRS duration 154, QTc 388. Normal axis. Interpretation: Sinus rhythm. Right bundle branch block. Discharge Plan Discharge Patient Disposition: Home Clinical Impression: Community acquired pneumonia Condition: Stable Prescriptions: New Augmentin 875-125 mg tablet 1 tab PO BID 10 Days Qty: 20 0RF doxycycline hyclate 100 mg tablet 100 mg PO Q12H 10 Days Qty: 20 0RF No Action tramadol [Ultram] 50 mg tablet 50 mg PO Q8H PRN (Reason: pain) 7 Days Qty: 21 0RF (DME) cam boot short to the right See Rx Instructions .ROUTE .MEDSUPPLY Qty: 1 0RF Rx Instructions: As directed furosemide [Lasix] 40 mg tablet 40 mg PO .COMPLEX Qty: 75 2RF Rx Instructions: 40 mg PO Take one and 1/2 tab morning and 1 tab in evening; potassium chloride 10 mEq tablet extended release 10 meq PO BID 0RF famotidine 40 mg tablet 40 mg PO DAILY 0RF insulin aspart U-100 [Novolog Flexpen U-100 Insulin] 100 unit/mL (3 mL) insulin pen See Rx Instructions SUBCUT TID 0RF Rx Instructions: sliding scale SUBCUT three times daily; 10-15 units before meals. aspirin [Adult Low Dose Aspirin] 81 mg tablet,delayed release (DR/EC) 81 mg PO DAILY 0RF atorvastatin 80 mg tablet 80 mg PO DAILY 0RF duloxetine 30 mg capsule,delayed release(DR/EC) 30 mg PO BID 0RF finasteride 5 mg tablet 5 mg PO DAILY 0RF gabapentin 300 mg capsule 300 mg PO TID 0RF isosorbide mononitrate 120 mg tablet extended release 24 hr 120 mg PO DAILY 0RF methocarbamol 750 mg tablet 750 mg PO TID 0RF nitroglycerin 0.4 mg tablet, sublingual 0.4 mg sublingual Q5M PRN0RF Rx Instructions: do not exceed 3 doses per episode clopidogrel [Plavix] 75 mg tablet 75 mg PO DAILY 0RF ranolazine [Ranexa] 1,000 mg tablet extended release 12 hr 1,000 mg PO BID 0RF Lantus Solostar U-100 Insulin 100 unit/mL (3 mL) insulin pen 70 unit SUBCUT .Qpm 0RF (DME) Diabetic Shoes with 3 pairs of molded inserts See Rx Instructions .ROUTE .MEDSUPPLY Qty: 1 0RF Rx Instructions: As directed (DME) Toe Alignment Splint See Rx Instructions .Route .MEDSUPPLY Qty: 1 0RF Rx Instructions: As directed (DME) FreeStyle Jostin 2 Sensor Kit See Rx Instructions .Route Qty: 1 3RF Rx Instructions: As directed (DME) FreeStyle Jostin 2 [place] Misc See Rx Instructions .Route Qty: 1 0RF Rx Instructions: Check BS 4 times a day. Discharge Orders: Discharge ED (Routine); Ordered 12/15/21 Ordered By: Sukhjinder Perez Referrals: Vlad Corona, DO [Primary Care Provider] - Discharge Diet: Usual diet Discharge Activity: Resume usual activity Patient Instructions: Bacterial Pneumonia (ED) Activity Restrictions/Additional Instructions: Thank you for visiting the emergency department. You were seen and evaluated for cough. Based on history and physical exam I believe that you have pneumonia. I will treat you with antibiotics. Please follow-up with a primary care provider. Please return to the emergency department for worsening symptoms, failure to improve, oxygen saturations less than 90%, or anything else that you are concerned about and feel needs emergency department evaluation. Coding Level of Care Code ED [facility] Representative for Chapito Hatfield
[2021-12-15 22:25] VITALS: BP 154/81; PULSE 89; RESP 21; O2SAT 94
[2021-12-15 22:28] LABS: Alanine Aminotransferase 15 U/L (0-41); Albumin Level 3.6 g/dL (3.5-5.2); Alkaline Phosphatase 206 IU/L (40-130); Anion Gap 16.3 (5-19); Aspartate Amino Transferase 18 U/L (0-40); Blood Urea Nitrogen 14 mg/dL (8-23); Calcium 8.9 mg/dL (8.5-10.5); Carbon Dioxide 23 mmol/L (22-29); Chloride 99 mmol/L (98-107); Globulin 3.1 g/dL (1.3-4.6); Glucose 246 mg/dL (65-115); Osmolality Calculated 287 mOsm/kg (285-295); Potassium 4.3 mmol/L (3.5-5.1); Sodium 134 mmol/L (136-145); Total Bilirubin 0.5 mg/dL (0.15-1.2); Total Protein 6.7 g/dL (6.6-8.7)
[2021-12-15 22:29] LABS: Creatinine Clr Calc Pharmacy 101.1661
[2021-12-15 22:30] LABS: SARS Covid-2 Antigen Negative (Negative)
[2021-12-15] MEDS: ipratropium-albuterol 3 mL Neb INHALATION (23:03)
[2021-12-15 23:07] VITALS: PULSE 91; RESP 20; O2SAT 90
[2021-12-15 23:14] VITALS: PULSE 93
[2021-12-16] MEDS: amoxicillin-clav 875-125 mg Tablet 1 TAB PO (00:18)
[2021-12-16] MEDS: doxycycline 100 mg Tablet PO (00:19)
== END 2021-12-16 00:29 | disposition home or self-care (01) ==
PROVIDERS: Emergency Provider Emergency Medicine; PCP Emergency Medicine Emergency Medical Services
DX: J18.8 Other pneumonia, unspecified organism (principal); Z79.82 Long term (current) use of aspirin; Z79.02 Long term (current) use of antithrombotics/antiplatelets; Z79.4 Long term (current) use of insulin; I11.0 Hypertensive heart disease with heart failure; I50.9 Heart failure, unspecified; I25.10 Atherosclerotic heart disease of native coronary artery without angina pectoris; E78.5 Hyperlipidemia, unspecified; Z86.73 Personal history of transient ischemic attack (TIA), and cerebral infarction without residual deficits; Z87.891 Personal history of nicotine dependence; Z20.822 Contact with and (suspected) exposure to COVID-19
CPT/HCPCS: 71045; 80053; 83605; 85025; 87040; 87426; 93005; 94640; 99283

== ENCOUNTER 2022-01-08 14:20 | Outpatient (CLI) | payer OTHER, SELFPAY ==
[2022-01-08 15:01] LABS: Basophils # 0.1 10^3/uL (0.0-0.1); Eosinophils # 0.2 10^3/uL (0.0-0.8); Eosinophils % 1.8 %; Hematocrit 46.9 % (42.0-52.0); Hemoglobin 16.2 g/dL (11.7-16.6); Lymphocytes # 2.5 10^3/uL (0.8-4.8); Lymphocytes % 28.7 %; Mean Corpuscular HGB Conc 34.5 g/dL (30.0-36.0); Mean Corpuscular Volume 89.8 fl (80-94); Mean Platelet Volume 11.1 fL (7.4-10.4); Monocytes # 0.8 10^3/uL (0.2-0.9); Neutrophils # 5.14 10^3/uL (1.8-7.7); Neutrophils % 58.7 %; Nucleated Red Blood Cells % 0 %; Platelet Count 152 10^3/cmm (130-400); Red Blood Count 5.22 10^6/uL (4.1-5.3); Red Cell Distribution Width 12.8 % (12.1-15.1); White Blood Count 8.8 10^3/uL (4.0-10.0)
[2022-01-08 15:25] LABS: Ferritin 129 ng/mL (30-400)
== END 2022-01-08 14:21 | disposition home or self-care (01) ==
LOC: ONCMED 14:20
PROVIDERS: PCP Emergency Medicine Emergency Medical Services; Visit Provider Internal Medicine Hematology & Oncology
DX: E83.119 Hemochromatosis, unspecified (principal)
CPT/HCPCS: 82728; 85025; 99195

== ENCOUNTER 2022-01-09 08:37 | Outpatient (CLI) | payer OTHER, SELFPAY | END 2022-01-09 08:38 | disposition home or self-care (01) | LOC: WOUND 08:39 | PROVIDERS: PCP Emergency Medicine Emergency Medical Services; Visit Provider Emergency Medicine | DX: E11.621 Type 2 diabetes mellitus with foot ulcer (principal); L97.311 Non-pressure chronic ulcer of right ankle limited to breakdown of skin; L97.821 Non-pressure chronic ulcer of other part of left lower leg limited to breakdown of skin; Z09 Encounter for follow-up examination after completed treatment for conditions other than malignant neoplasm; I70.209 Unspecified atherosclerosis of native arteries of extremities, unspecified extremity; Z87.891 Personal history of nicotine dependence | CPT/HCPCS: 11042; 97597 ==

== ENCOUNTER 2022-01-14 09:53 | Outpatient (CLI) | payer OTHER, SELFPAY | END 2022-01-14 09:54 | disposition home or self-care (01) | LOC: WOUND 09:54 | PROVIDERS: PCP Emergency Medicine Emergency Medical Services; Visit Provider Emergency Medicine | DX: E11.622 Type 2 diabetes mellitus with other skin ulcer (principal); E11.621 Type 2 diabetes mellitus with foot ulcer; L97.821 Non-pressure chronic ulcer of other part of left lower leg limited to breakdown of skin; L97.521 Non-pressure chronic ulcer of other part of left foot limited to breakdown of skin | CPT/HCPCS: 11042; 87070; 87077; 87176; 87186; 87205; 99212 ==

== ENCOUNTER → 2022-01-28 14:47 | Outpatient (BNVA) | payer OTHER, SELFPAY | PROVIDERS: PCP Emergency Medicine Emergency Medical Services; Visit Provider Nurse Practitioner Family | DX: E11.621 Type 2 diabetes mellitus with foot ulcer (principal); E11.622 Type 2 diabetes mellitus with other skin ulcer; I96 Gangrene, not elsewhere classified; L97.821 Non-pressure chronic ulcer of other part of left lower leg limited to breakdown of skin; L97.521 Non-pressure chronic ulcer of other part of left foot limited to breakdown of skin; L97.511 Non-pressure chronic ulcer of other part of right foot limited to breakdown of skin; Z87.891 Personal history of nicotine dependence | CPT/HCPCS: 11042; 87070; 87077; 87176; 87186; 87205 ==

== ENCOUNTER → 2022-02-04 10:19 | Outpatient (BNVA) | payer OTHER, SELFPAY | PROVIDERS: PCP Emergency Medicine Emergency Medical Services; Visit Provider Emergency Medicine | DX: E11.622 Type 2 diabetes mellitus with other skin ulcer (principal); L97.821 Non-pressure chronic ulcer of other part of left lower leg limited to breakdown of skin; E11.621 Type 2 diabetes mellitus with foot ulcer; L97.521 Non-pressure chronic ulcer of other part of left foot limited to breakdown of skin; L97.511 Non-pressure chronic ulcer of other part of right foot limited to breakdown of skin; Z87.891 Personal history of nicotine dependence | CPT/HCPCS: 11042 ==

== ENCOUNTER 2022-02-05 14:10 | Outpatient (CLI) | payer OTHER, SELFPAY ==
--- NOTE | 2022-02-05 14:23 | MR_ITS ---
WS: [id number] MRI OF THE LEFT FOOT WITHOUT AND WITH GADOLINIUM ENHANCEMENT. INDICATION: Diabetes with ulcer on 4th toe TECHNIQUE: Sagittal T1, coronal PD, coronal T2, axial T2, axial PD, axial T1, sagittal STIR, axial co kevin and sagittal T1 post crystal with fat saturation technique FINDINGS: Images somewhat degraded by artifact and somewhat limited involving the distal phalanges du e to positioning and flexion contractures. No radiographs of the LEFT foot for comparison. There appears to be prior amputation of the 4th phala nges at the level of the distal proximal phalanx. Associated ulceration dorsally in this area with ce llulitis. No drainable fluid collections. Normal T1 bone marrow signal with mild reactive edema in th e residual 4th proximal phalanx. No definite evidence of osteomyelitis in this area. Replacement of the normal T1 bone marrow signal with bony destruction and edema involving the 3rd mid and distal phalanges with erosive changes at the DIP joint. Associated soft tissue edema with enhanc ement. No drainable fluid collections. Findings compatible with osteomyelitis in this area. Normal costa ne marrow signal in the 3rd proximal phalanx. Plantar calcaneal spur. Intertarsal edema and cellulitis involving the midfoot and forefoot. Normal b one marrow signal in the metatarsals. MR/MR foot LT wo/w con [id number] IMPRESSION: Exam is somewhat limited due to positioning and flexion contracture s in the distal toes 1. Evidence of osteomyelitis involving the 3rd middle and distal phalanx cente red at the DIP joint with apparent erosive changes and replacement of the mike l fatty T1 bone marrow signal. 2. Dorsal ulceration overlying the residual 4th proximal phalanx with soft tis rachel enhancement consistent with cellulitis. Bone marrow signal is preserved. No definite evidence of osteomyelitis in this area. 3. No drainable fluid collections or abscess.
[2022-02-05] MEDS: gadobenate dimeglumine 20 mL vial IV (16:19)
== END 2022-02-05 14:11 | disposition home or self-care (01) ==
LOC: RAD 14:13
PROVIDERS: PCP Emergency Medicine Emergency Medical Services; Visit Provider Emergency Medicine
DX: E11.621 Type 2 diabetes mellitus with foot ulcer (principal)
CPT/HCPCS: 73720

== ENCOUNTER 2022-02-06 14:12 | Outpatient (CLI) | payer OTHER, SELFPAY ==
--- NOTE | 2022-02-06 14:19 | MR_ITS ---
WS: [id number] MRI RIGHT FOOT with and without CONTRAST. COMPARISON: Radiographs 05/22/2021 Multiplanar, multisequence imaging is performed with and without contrast. Sagittal and axial T1 fat sat sequences post-MultiHance 20 cc IV. Quality of this examination is limited due to patient's motion and foot contracture. Patient did not remain still for this examination and continued to move out of the field of imaging. There is a focal area of marrow edema along the dorsal surface of the proximal second phalangeal head . Area of edema measures 5 mm. There is a tiny amount of enhancement and adjacent soft tissue edema s urrounding the proximal phalanx. No additional marrow abnormalities or edema. Status post distal phal anx resection of the first toe. The very distal toes are poorly visualized due to poor [id number] e ratio and marked contractures. There are hammertoe deformities of all toes. Mild osteoarthritis at the first metatarsophalangeal joint. MR/MR foot RT wo/w con [id number] IMPRESSION: 1. Quality of this examination is compromised by motion and continued moving o ut of field of imaging during the evaluation. 2. Marrow edema with mild enhancement involving a focal 5 mm area of the metat arsal head second proximal phalanx. Consistent with osteomyelitis. 3. Mild soft tissue edema with cellulitis surrounding the proximal phalanx sec ond metatarsal. 4. Prior amputation of the distal phalanx first toe.
== END 2022-02-06 14:13 | disposition home or self-care (01) ==
LOC: RAD 14:14
PROVIDERS: PCP Emergency Medicine Emergency Medical Services; Visit Provider Emergency Medicine
DX: E11.621 Type 2 diabetes mellitus with foot ulcer (principal); R60.0 Localized edema; Z89.421 Acquired absence of other right toe(s); L03.031 Cellulitis of right toe
CPT/HCPCS: 73720; A9577

== ENCOUNTER → 2022-02-11 10:26 | Outpatient (BNVA) | payer OTHER, SELFPAY | PROVIDERS: PCP Emergency Medicine Emergency Medical Services; Visit Provider Emergency Medicine | DX: E11.65 Type 2 diabetes mellitus with hyperglycemia (principal); E11.40 Type 2 diabetes mellitus with diabetic neuropathy, unspecified; I73.9 Peripheral vascular disease, unspecified; M86.9 Osteomyelitis, unspecified; L97.514 Non-pressure chronic ulcer of other part of right foot with necrosis of bone; L97.524 Non-pressure chronic ulcer of other part of left foot with necrosis of bone; E11.621 Type 2 diabetes mellitus with foot ulcer; L97.821 Non-pressure chronic ulcer of other part of left lower leg limited to breakdown of skin; L97.521 Non-pressure chronic ulcer of other part of left foot limited to breakdown of skin; L97.511 Non-pressure chronic ulcer of other part of right foot limited to breakdown of skin | CPT/HCPCS: 11044; 99212; 99215 ==

== ENCOUNTER 2022-02-14 05:49 | Day surgery (SDC) | payer OTHER, SELFPAY ==
[2022-02-13 16:43] VITALS: BMI 32.8
[2022-02-14] VITALS (9 sets, daily range): BP systolic 117–166; BP diastolic 59–82; PULSE 68–77; RESP 8–18; TEMP 36.1–36.2; O2SAT 97–100
[2022-02-14 06:34] LABS: Glucose Point of Care 207 mg/dL (70-110)
--- NOTE | 2022-02-14 06:41 | P.ANESASSM_ITS ---
Pre-Anesthetic Assessment Height/Weight: Height 1.83 m Weight 109.769 kg Preop Diagnosis: Osteomyelitis left and right foot Operation Date: 02/14/22 07:00 Proposed Procedures p Amputation of left 3rd toe, right great toe and right 2nd toe 50892 x3/m86.9/l97.524/l97.514(Bilateral) - Shyam Gilbert DPM Familial anesthetic complications: None (Patient adopted, uknown family hx) Was Beta Elizabeth taken within 24 hours: N/A Was Clonidine taken within 24 hours: N/A Last intake: Intake Last Liquid Date 02/13/22 Last Liquid Time 20:00 Last Solid Date 02/13/22 Last Solid Time 20:00 Social No alcohol and No tobacco former smoker Exam alert, oriented x 3, clear to auscultation bilaterally and regular rate & rhythm Airway Mallampati: Class III Dentition: full CV/HEM Coronary Artery Disease (stents > 1 year ago), Congestive Heart Failure, Myoc ardial Infarction and Peripheral Vascular Disease GI Gastroesophageal Reflux Disease Metabolic Diabetes Mellitus and Hyperlipidemia Neuropsych Cerebrovascular Accident Anesthetic Plan ASA status: 4 Anesthesia: MAC Risk of > 500 ml blood loss (7ml/kg in children): No Medications/Allergies Home Medications Medication Instructions Recorded Confirmed Last Taken Type Diabetic Shoes with 3 pairs of #1 ea 11/13/20 02/11/22 Unknown Rx molded inserts aspirin 81 mg tablet,delayed 81 mg PO DAILY 11/21/20 02/13/22 02/11/22 History release (Adult Low Dose Aspirin) atorvastatin 80 mg tablet 80 mg PO DAILY 11/21/20 02/13/22 02/12/22 History clopidogrel 75 mg tablet (Plavix) 75 mg PO DAILY 11/21/20 02/13/22 02/11/22 History duloxetine 30 mg capsule,delayed 30 mg PO BID 11/21/20 02/13/22 02/12/22 History release finasteride 5 mg tablet 5 mg PO DAILY 11/21/20 02/13/22 02/12/22 History gabapentin 300 mg capsule 300 mg PO TID 11/21/20 02/13/22 02/12/22 History insulin aspart U-100 100 unit/mL See Rx Instructions SUBCUT TID 11/21/20 02/13/22 02/12/22 History (3 mL) subcutaneous pen (Novolog Flexpen U-100 Insulin aspart) isosorbide mononitrate 120 mg 120 mg PO DAILY 11/21/20 02/13/22 02/12/22 History tablet,extended release 24 hr methocarbamol 750 mg tablet 750 mg PO TID 11/21/20 02/13/22 02/12/22 History nitroglycerin 0.4 mg sublingual 0.4 mg SUBLINGUAL Q5M PRN 11/21/20 02/13/22 Unknown History tablet ranolazine 1,000 mg 1,000 mg PO BID 11/21/20 02/13/22 02/12/22 History tablet,extended release,12 hr (Ranexa) Toe Alignment Splint #1 ea 01/31/21 02/11/22 Unknown Rx tramadol 50 mg tablet (Ultram) 50 mg PO Q8H PRN 7 Days #21 tab 03/01/21 02/14/22 02/12/22 Rx cam boot short to the right #1 ea 05/22/21 02/11/22 Unknown Rx furosemide 40 mg tablet (Lasix) 40 mg PO .COMPLEX #75 tab 08/30/21 02/13/22 02/12/22 Rx potassium chloride 10 mEq 10 meq PO BID tab 08/30/21 02/13/22 02/12/22 History tablet,extended release famotidine 40 mg tablet 40 mg PO DAILY 11/05/21 02/13/22 02/12/22 History insulin glargine 100 unit/mL (3 70 unit SUBCUT BID ml 11/13/21 02/13/2204/30 History mL) subcutaneous pen (Lantus Solostar U-100 Insulin) flash glucose sensor (FreeStyle #1 ea 12/04/21 02/11/22 Unknown Rx Jostin 2 Sensor) flash glucose scanning reader #1 ea 12/24/21 02/11/22 Unknown Rx (FreeStyle Jostin 2 [place]) tamsulosin 0.4 mg capsule 0.4 mg PO BID #180 cap 01/31/22 02/13/22 02/12/22 Rx Allergies Allergy/AdvReac Type Severity Reaction Status Date / Time No Known Allergies Allergy Verified 02/11/22 13:04 [facility] Anesthesia Medical History Adopted Arthritis BPH loc w urin obs/LUTS CHF (congestive heart failure), NYHA class III Coronary artery disease Hematospermia History of amputation of right great toe HTN (hypertension) Hyperlipidemia PAD (peripheral artery disease) Stroke Surgical History History of amputation of lesser toe of left foot History of appendectomy History of carpal tunnel release History of shoulder surgery Family History Other Hypertension Social History Smoking and tobacco status: former smoker Alcohol intake: current Alcohol intake frequency: holidays/special occasions only Adopted: Yes Lives independently: Yes Housing: Apartment Data Anesthesia Cardiac Studies: Echocardiogram 10/07/21
--- NOTE | 2022-02-14 06:41 | W.PM.OPSUD ---
Surgery/Procedure H&P Update DATE OF PROCEDURE: February 14, 2022 DATE H&P PERFORMED: 02/11/22 CHANGES TO PREVIOUS DOCUMENTATION: None PREOP DIAGNOSIS: Osteomyelitis left and right foot PLANNED PROCEDURE: Operation Date: 02/14/22 07:00 Proposed Procedures p Amputation of left 3rd toe, right great toe and right 2nd toe 70698 x3/m86.9/l97.524/l97.514(Bilateral) - Shyam Gilbert DPM
[2022-02-14] MEDS: sodium chloride 0.9% 1,000 ML 30 ML IV (07:00)
[2022-02-14] MEDS: lidocaine 2% INJ 20 mL 10 ML INJECTION (07:44)
--- NOTE | 2022-02-14 07:45 | XR_ITS ---
WS: [id number] FOOT LEFT TECHNIQUE: 2 views of the left foot CLINICAL INFORMATION: post op COMPARISON: None. FINDINGS: Osteopenia. Soft tissue edema. Mild hallux valgus. Postoperative changes amputation at the 3rd MTP an d 4th mid proximal phalanx. Plantar calcaneal spurring. Vascular calcification. XR/XR foot LT 2V [id number] IMPRESSION: Postoperative changes amputation at the 3rd MTP and 4th mid proximal phalanx.
--- NOTE | 2022-02-14 07:45 | XR_ITS ---
WS: [id number] FOOT RIGHT TECHNIQUE: 2 views of the right foot CLINICAL INFORMATION: post op COMPARISON: May 22, 2021 FINDINGS: Soft tissue edema. Osteopenia. Postoperative changes amputation 1st and 2nd MTP. Plantar calcaneal sp urring. Vascular calcification. Hypertrophic spurring along the dorsal navicular. XR/XR foot RT 2V [id number] IMPRESSION: 1. Soft tissue edema. Osteopenia. 2. Postoperative changes amputation at the 1st and 2nd MTP. 3. Vascular calcification.
--- NOTE | 2022-02-14 08:10 | SUR.PHASEI ---
0803 PT TO PACU 2 PT GIVEN WARM BLANKETS ID BRACELET TO LT WRIST , PT ID WITH 2 IDENTIFIERS, IV TO RT WRIST #!8 PATENT 500ML NS AT KVO. PT WITH GOOD RESP EFFORT NOTED. BILATERAL TOES AMPUTATED DRESSING SOFT FLUFFY TO BILAT FEET WITH SURGICAL SHOE IN PLACE, DRESSING D/I NO BLEEDING NOTED.
--- NOTE | 2022-02-14 08:11 | P.OP_ITS ---
Operative Report Date of procedure: February 14, 2022 Pre-op diagnosis: Osteomyelitis left foot and right foot. Post-op diagnosis: Same Procedure done: Left third toe amputation at the metatarsophalangeal joint. CPT code 05367 Right great toe amputation at the metatarsophalangeal joint. CPT code 92047 Right second toe amputation at the metatarsophalangeal joint. CPT code 62488 Implants: 4-0 Vicryl, 4-0 nylon Specimens removed/disposition: None Pathology: Right second toe, right great toe and left third toe sent to pathology for permanent. Level of amputation curative of osteomyelitis at proximal margin, this was 2 joints proximal to infection. Surgeon: Shyam Gilbert D.P.M. Emergency Room Specialist: Ami Estimated blood loss: 5 No tourniquet utilized IV fluids: 0 Urine output: 0 Complications: None Brief History: Patient requesting amputation of his left third toe and right great and second toe due to osteomyelitis, wounds exposed bone, has been on antibiotics and weekly wound care with progression of infection with devitalized soft tissue and bone. Would like to preserve his foot and eradicate infection if possible by toe amputation. Risks include but are not limited to pain, bleeding, numbness, infection, progression of osteomyelitis and need for higher level of amputation, antibiotic therapies and wound care modalities. No guarantees written, expressed or implied. Informed consent signed, initialed both feet and n.p.o. since midnight patient wishes to proceed. Procedure: Under mild sedation the patient was brought to the operating room and remained on the gurney in supine position. A timeout was performed. Anesthesia was then administered by the anesthesia service. Local anesthesia injected by myself consisting of local anesthetic right Champion block, right second ray block and left third ray block this was 0.25% Marcaine plain and 2% lidocaine plain one-to-one mixture total of 30 cc. Well-padded pneumatic tourniquet applied to the left and right ankle. These were not utilized are inflated during the duration of procedure. The left and right lower extremities were scrubbed, prepped and draped utilizing normal aseptic technique. Attention was directed to the right first and second toes where wounds exposed bone were appreciated. With a #15 blade a fishmouth incision encompassing the first and second metatarsophalangeal joints leaving adequate soft tissue for closure was performed at the right forefoot with the great toe and second toe disarticulated at the metatarsophalangeal joint. Extensor and flexor tendons transected under traction and bleeders ligated and cauterized as necessary. Incision was flushed with saline solution. First metatarsal head and second metatarsal head were viable. This was closed in a layered fashion with 4-0 Vicryl and 4-0 nylon. Attention was then directed to the left third metatarsophalangeal joint where a vertical semielliptical incision was made encompassing the third metatarsophalangeal joint full-thickness where the left third toe was then disarticulated and passed from operative field this along with the right great toe and second toe were sent to pathology for permanent. Left third metatarsal head was viable. Incision was flushed with saline solution, bleeders were ligated and cauterized as necessary. This was closed in a layered fashion with 4-0 Vicryl and 4-0 nylon. Incisions were dressed with Adaptic, sterile 4 x 4, Kerlix and Zacarias wrap and postop shoes were applied. Patient tolerated the procedure and anesthesia well and was transferred to the PACU with vital signs stable and vascular status intact. Following a period of postoperative monitoring he will be discharged home is to decrease activities, elevate both feet above the hip while resting. Utilize postop shoe for transfers and follow-up in a week in clinic. He will start dressing changes on Thursday daily.
[2022-02-14 08:13] LABS: Glucose Point of Care 210 mg/dL (70-110)
--- NOTE | 2022-02-14 08:34 | SUR.PHASEI ---
PT AWAKE ALERT VSS, IV PATENT DRESSING TO BILAT FEET UNCHANGED, CAP REFILL LESS THAN 3 SECONDS, PT
--- NOTE | 2022-02-15 07:18 | ANE.PACU2 ---
Inpatient post-anesthesia follow up: Airway intact: Yes Vital signs: Temperature 97 F Pulse Rate 77 Respiratory Rate 16 Blood Pressure 166/82 Pulse Oximetry 99 Oxygen Delivery Me thod Room Air Oxygen Flow Rate 6 Fraction of Inspir ed Oxygen Hydration adequate: Yes Nausea and vomiting: No Pain level: 2 Mental status: Baseline
== END 2022-02-14 09:25 | disposition home or self-care (01) ==
PROVIDERS: PCP Emergency Medicine Emergency Medical Services; Visit Provider Podiatrist Foot & Ankle Surgery
PROC: (CPT 28820; principal; 2022-02-14 07:00)
DX: M86.8X7 Other osteomyelitis, ankle and foot (principal); I25.10 Atherosclerotic heart disease of native coronary artery without angina pectoris; Z95.5 Presence of coronary angioplasty implant and graft; I50.9 Heart failure, unspecified; I25.2 Old myocardial infarction; E11.9 Type 2 diabetes mellitus without complications; E78.5 Hyperlipidemia, unspecified; Z86.73 Personal history of transient ischemic attack (TIA), and cerebral infarction without residual deficits; M19.90 Unspecified osteoarthritis, unspecified site; N40.1 Benign prostatic hyperplasia with lower urinary tract symptoms; N13.8 Other obstructive and reflux uropathy; I10 Essential (primary) hypertension
CPT/HCPCS: 28820 ×3; 36416; 73620; 82962; 88305; 88311; J0690; J2704; J3010; J3490; J7030; L3260

== ENCOUNTER → 2022-03-11 09:52 | Outpatient (BNVA) | payer OTHER, SELFPAY | PROVIDERS: PCP Emergency Medicine Emergency Medical Services; Visit Provider Podiatrist Foot & Ankle Surgery | DX: Z98.890 Other specified postprocedural states (principal); Z89.411 Acquired absence of right great toe; Z89.421 Acquired absence of other right toe(s); Z89.422 Acquired absence of other left toe(s); E11.65 Type 2 diabetes mellitus with hyperglycemia; E11.40 Type 2 diabetes mellitus with diabetic neuropathy, unspecified; I73.9 Peripheral vascular disease, unspecified; L97.522 Non-pressure chronic ulcer of other part of left foot with fat layer exposed; Z87.891 Personal history of nicotine dependence | CPT/HCPCS: 11042 ==

== ENCOUNTER 2022-03-12 15:40 | Emergency (ER) | payer OTHER, SELFPAY ==
[2022-03-12 15:56] VITALS: BP 129/73; PULSE 86; O2SAT 98; BMI 29.8
[2022-03-12 16:03] VITALS: BP 143/70; O2SAT 94
--- NOTE | 2022-03-12 16:24 | XRR_ITS ---
PROCEDURE INFORMATION: Exam: XR Chest Exam date and time: 03/12/2022 4:32 PM Age: 77 years old Clinical indication: Pain; Angina pectoris; Additional info: Chest pain TECHNIQUE: Imaging protocol: XR of the chest. Views: 1 view. COMPARISON: CR XR chest 1V portable [id number] 12/15/2021 10:40 PM FINDINGS: Lungs: Chronic mild interstitial scarring in the left lung base. The right lung is clear. Possible emphysema. No consolidation. Pleural spaces: Unremarkable. No pleural effusion. No pneumothorax. Heart/Mediastinum: Unremarkable. No cardiomegaly. Bones/joints: Old right rib fracture. No acute fracture identified. Right rotator cuff arthropathy. XR/XR chest 1V portable [id number] IMPRESSION: No acute finding.
--- NOTE | 2022-03-12 16:24 | ECG_ITS ---
[facility] Test Date: 2022-03-12 Pat Name: Immanuel Dumont Department: Room: Gender: Male Configuration Release Manager: : 1945 Requested By: Angie Bansal Order Number: [id number] Ramone MD: Ruby Rojas M.D. Measurements Intervals Ware Rate: 81 P: 51 AR: 219 QRS: 91 QRSD: 137 T: -65 QT: 407 QTc: 475 Interpretive Statements SINUS RHYTHM WITH FIRST DEGREE AV BLOCK RIGHT BUNDLE BRANCH BLOCK [120+ ms QRS DURATION, UPRIGHT V1, 40+ ms S IN I/aVL/V4/V5/V6] MODERATE T-WAVE ABNORMALITY, CONSIDER LATERAL ISCHEMIA [-0.1+ mV T-WAVE IN I/aVL/V5/V6] MODERATE T-WAVE ABNORMALITY, CONSIDER INFERIOR ISCHEMIA [-0.1+ mV T-WAVE IN II/aVF] Compared to ECG 12/15/2021 22:24:20 First degree AV block now present T-wave abnormality still present Possible ischemia still present Electronically Signed On 03-12-2022 19:45:13 CDT by Ruby Rojas M.D. [email or web address]
--- NOTE | 2022-03-12 16:38 | ED_ITS ---
Documented by User: PERFECTO Cason 03/13/22 08:33 HPI - Weakness General: Chief complaint: Weakness Stated complaint: L SIDED WEAKNESS/ CHEST PAIN Time Seen by Provider: 03/12/22 16:37 Source: patient Mode of arrival: EMS Limitations: no limitations History of Present Illness: Patient is a 77-year-old male who presents to ED today via EMS for complaints of left-sided chest pain that began earlier today. He tells me he has a sharp pain underneath his left breast that radiates inferiorly into his abdomen. He is not having any shortness of breath or difficulty breathing. Does tell me he has a history of heart disease and reports I have a stent in my maker . Patient is also complaining of bilateral neck pain. He was recently seen by Dr. Mcnair for this and prescribed muscle relaxers. He is complaining of some left-sided arm weakness/numbness that he has had for approximately 3 weeks. Overall patient is a fairly poor historian. He later tells me that around 1330 today he developed left-sided chest pain and could not move the left side of my body . He states he was at rest when this happened. His chest pain has seemed to come and go with brief periodic episodes of pain since onset. Onset (ago): hour(s) Duration: intermittent Location: LUE and LLE Associated symptoms: Denies confusion or headache(s) Review of Systems Musc: Reports: neck pain; Denies: back pain, extremity pain, extremity swelling, joint pain or joint swelling Neuro: Reports: weakness in extremities (L arm/leg); Denies: headache(s), sensory changes, lack of coordination, dizziness, vertigo, confusion, behavioral changes, Slurred speech present or difficulty communicating thoughts PFS ED PFSH: Medical History Adopted Arthritis BPH loc w urin obs/LUTS CHF (congestive heart failure), NYHA class III Coronary artery disease Hematospermia History of amputation of right great toe HTN (hypertension) Hyperlipidemia PAD (peripheral artery disease) Stroke Surgical History History of amputation of lesser toe of left foot History of appendectomy History of carpal tunnel release History of shoulder surgery Family History Other Hypertension Social History Smoking and tobacco status: former smoker Alcohol intake: current Alcohol intake frequency: holidays/special occasions only Adopted: Yes Lives independently: Yes Housing: Apartment Physical Exam Const: COMMON NORMALS: no acute distress, patient oriented x3, no limitations, alert and well nourished ORIENTATION/CONSCIOUSNESS: Yes awake, Yes oriented to person, Yes oriented to place and Yes oriented to time HENMT: COMMON NORMALS: normocephalic and atraumatic HEAD & SCALP: normal to inspection, normocephalic and atraumatic Neck/C-Spine: COMMON NORMALS: no lymphadenopathy GENERAL: Yes normal visual inspection, No anterior neck swelling and No submandibular swelling CERVICAL SPINE: No cervical ROM normal, Yes pain with cervical ROM, No Cervical spine tenderness, No step off deformity and Yes Paracervical muscle tenderness (bilateral) Chest: COMMONS NORMALS: normal inspection of the chest and normal palpation of entire chest wall Resp: COMMON NORMALS: normal respiratory effort and clear to auscultation bilaterally AUSCULTATION: clear to auscultation bilaterally Cardio: COMMON NORMALS: regular rate and regular rhythm RATE: regular rate RHYTHM: regular rhythm GI: COMMON NORMALS: Normal to inspection, nondistended, normoactive bowel sounds present, Soft to palpation, non-tender, No hepatosplenomegaly present and no masses PALPATION: Yes Soft to palpation and Yes No hepatosplenomegaly present Back/Pelvis: COMMON NORMALS: thoracic and lumbar spine normal to inspection and no thoracic nor lumbar tenderness Extremity: COMMON NORMALS: capillary refill normal NARRATIVE EXTREMITY EXAM: pt can raise his R UE up to roughly 45 degrees on his own; he tells me he is not able to raise his L UE up at all however if I lift arm to 45 degrees he is able to hold this for 5+ seconds without downward drift; he states he chronically has issues with that arm/shoulder stating he has had 7 previous surgeries; end trimmer strength equal bilaterally; normal pulses/cap refill patient is able to raise R LE off table and hold for 5+ seconds; he is not able to raise his L LE off the table at all and if I lift leg off table and ask him to hold the extremity immediately drops Neuro: ROGER COMA SCALE: document GCS findings Roger coma scale eye opening: Spontaneous [place] coma scale verbal response: Orientated Roger coma scale motor response: Obey commands Roger coma scale total score: 15 COMMON NORMALS: patient oriented x3, CN's II-XII intact bilaterally, moves all extremities, no focal motor deficits and no sensory deficits noted SENSORIUM/ORIENTATION: Yes alert, Yes oriented to person, Yes oriented to place and Yes oriented to time COORDINATION/BALANCE: [id number] test normal SPEECH: speech normal MOTOR EXAM: Pronator motor function not present and Normal motor muscle tone present throughout COORDINATION: [id number] test normal Skin: COMMON NORMALS: no rashes or lesions noted GENERAL SKIN EXAM: no rashes or lesions noted TRAUMA: no lacerations or abrasions Course ED course: Will transfer care to Dr. Perez. Vital Signs: Vital signs: Vital Signs Pulse Rate 86 03/12/22 21:50 Respiratory Rate 18 03/12/22 21:50 Blood Pressure 138/99 03/12/22 21:50 Pulse Oximetry 97 03/12/22 21:50 MDM - Weakness Medical Decision Making Care was transferred to Dr. Perez. Please see his documentation for patient assessment, plan, and disposition. Lab Data : 03/12/22 15:24 03/12/22 15:24 Radiology Impressions Chest X-Ray 03/12/22 16:24 IMPRESSION: No acute finding. Head CT 03/12/22 16:52 IMPRESSION: 1. No acute intracranial abnormality. Chest CTA 03/12/22 17:48 IMPRESSION: 1. No evidence for pulmonary embolus or other acute finding. 2. 6 mm right pulmonary nodule. For patients at low risk (minimal or absent history of smoking and of other known risk factors), recommend CT Chest at 6-12 months, then consider CT Chest at 18-24 months. For patients at high risk (history of smoking or of other known risk factors), recommend CT Chest at 6-12 months, then CT Chest at 18-24 months. (Reference: Martha) References: Martha Gramajo et al. Guidelines for Management of Incidental Pulmonary Nodules Detected on CT Images: From the Fleischner Society 2017. Radiology. 2017;284(1):228-243. Head/Neck CTA 03/12/22 17:48 IMPRESSION: 1. 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 2. Calcified plaque in the bilateral cavernous internal carotid arteries with mild stenoses. IMPRESSION: 1. Noncalcified plaque with 40% stenosis in the distal left common carotid artery. 2. Calcified plaque with 20% stenosis in the proximal left internal carotid artery. REFERENCES: NASCET CRITERIA. The degree of internal carotid artery stenosis is based on NASCET criteria. Normal is no stenosis. Mild is less than 50% stenosis. Moderate is 50-69% stenosis. Severe is 70% to 99% stenosis. Total occlusion is no detectable patent lumen. Laboratory Results WBC 6.9 10^3/uL (4.0-10.0) 03/12/22 15: RBC 4.98 10^6/uL (4.1-5.3) 03/12/22 15:24 Hgb 15.1 g/dL (11.7-16.6) 03/12/22 15:24 Hct 44.5 % (42.0-52.0) 03/12/22 15:24 MCV 89.4 fl (80-94) 03/12/22 15:24 MCH 30.3 pg (28.0-34.0) 03/12/22 15:24 MCHC 33.9 g/dL (30.0-36.0) 03/12/22 15: RDW 13.9 % (12.1-15.1) 03/12/22 15:24 Plt Count 146 10^3/cmm (130-400) 03/12/22 15: MPV 11.1 fL (7.4-10.4) H 03/12/22 15:24 Neut % (Auto) 56.9 % 03/12/22 15:24 Lymph % (Auto) 31.3 % 03/12/22 15:24 [place] % (Auto) 8.6 % 03/12/22 15:24 Eos % (Auto) 1.6 % 03/12/22 15:24 Baso % (Auto) 1.3 % 03/12/22 15:24 Neut # (Auto) 3.90 10^3/uL (1.8-7.7) 03/12/22 15:24 Lymph # (Auto) 2.2 10^3/uL (0.8-4.8) 03/12/22 15:24 [place] # (Auto) 0.6 10^3/uL (0.2-0.9) 03/12/22 15:24 Eos # (Auto) 0.1 10^3/uL (0.0-0.8) 03/12/22 15:24 Baso # (Auto) 0.1 10^3/uL (0.0-0.1) 03/12/22 15:24 Nucleated RBC % (auto) 0 % 03/12/22 15:24 Nucleated RBCs # 0.0 /100WBC 03/12/22 15:24 Sodium 136 mmol/L (136-145) 03/12/22 15:24 Potassium 4.3 mmol/L (3.5-5.1) 03/12/22 15:24 Chloride 100 mmol/L (98-107) 03/12/22 15:24 Carbon Dioxide 26 mmol/L (22-29) 03/12/22 15:24 Anion Gap 14.3 (5-19) 03/12/22 15:24 BUN 14 mg/dL (8-23) 03/12/22 15:24 Creatinine 0.7 mg/dL (0.7-1.2) 03/12/22 15:24 GFR Calculation Not Reportable 03/12/22 15:24 Glucose 392 mg/dL (65-115) H 03/12/22 15:24 Calculated Osmolality 299 mOsm/kg (285-295) H 03/12/22 15:24 Calcium 9.4 mg/dL (8.5-10.5) 03/12/22 15:24 Total Bilirubin 0.4 mg/dL (0.15-1.2) 03/12/22 15:24 AST 25 U/L (0-40) 03/12/22 15:24 ALT 25 U/L (0-41) 03/12/22 15:24 Alkaline Phosphatase 221 IU/L (40-130) H 03/12/22 15:24 Troponin T Baseline 17 ng/L (0-15) H 03/12/22 15:24 Troponin T 120 Minute 15.75 ng/L (0-15) H 03/12/22 17:39 Delta Troponin T -1.25 ABS# (0-10) L 03/12/22 17:39 NT-Pro-B Natriuret Pep 379 pg/mL (0-450) 03/12/22 15:24 Total Protein 7.2 g/dL (6.6-8.7) 03/12/22 15:24 Albumin 4.0 g/dL (3.5-5.2) 03/12/22 15:24 Globulin 3.2 g/dL (1.3-4.6) 03/12/22 15:24 Discharge Plan Discharge Patient Disposition: Home Clinical Impression: Chest pain, Leg weakness, Paresthesia Condition: Stable Prescriptions: New Biofreeze (menthol) 4 % gel 1 applic topical Q8H PRN (Reason: pain) Qty: 89 0RF methocarbamol 750 mg tablet 750 mg PO Q8H Qty: 10 0RF No Action (DME) cam boot short to the right See Rx Instructions .ROUTE .MEDSUPPLY Qty: 1 0RF Rx Instructions: As directed furosemide [Lasix] 40 mg tablet 40 mg PO .COMPLEX Qty: 75 2RF Rx Instructions: 40 mg PO Take one and 1/2 tab morning and 1 tab in evening; potassium chloride 10 mEq tablet extended release 10 meq PO BID 0RF famotidine 40 mg tablet 40 mg PO DAILY 0RF tamsulosin 0.4 mg capsule 0.4 mg PO BID Qty: 180 3RF insulin aspart U-100 [Novolog Flexpen U-100 Insulin] 100 unit/mL (3 mL) insulin pen See Rx Instructions SUBCUT TID 0RF Rx Instructions: sliding scale SUBCUT three times daily; 10-15 units before meals. aspirin [Adult Low Dose Aspirin] 81 mg tablet,delayed release (DR/EC) 81 mg PO DAILY 0RF atorvastatin 80 mg tablet 80 mg PO DAILY 0RF duloxetine 30 mg capsule,delayed release(DR/EC) 30 mg PO BID 0RF finasteride 5 mg tablet 5 mg PO DAILY 0RF gabapentin 300 mg capsule 300 mg PO TID 0RF isosorbide mononitrate 120 mg tablet extended release 24 hr 120 mg PO DAILY 0RF nitroglycerin 0.4 mg tablet, sublingual 0.4 mg sublingual Q5M PRN (Reason: Chest Pain) 0RF Rx Instructions: do not exceed 3 doses per episode clopidogrel [Plavix] 75 mg tablet 75 mg PO DAILY 0RF ranolazine [Ranexa] 1,000 mg tablet extended release 12 hr 1,000 mg PO BID 0RF Lantus Solostar U-100 Insulin 100 unit/mL (3 mL) insulin pen 70 unit SUBCUT BID 0RF (DME) Diabetic Shoes with 3 pairs of molded inserts See Rx Instructions .ROUTE .MEDSUPPLY Qty: 1 0RF Rx Instructions: As directed (DME) Toe Alignment Splint See Rx Instructions .Route .MEDSUPPLY Qty: 1 0RF Rx Instructions: As directed Iodosorb 0.9 % gel 40 g topical ONCE Qty: 40 2RF (DME) Diabetic shoes with 3 inserts and Bilateral Toe Fillers See Rx Instructions .Route .MEDSUPPLY Qty: 1 0RF Rx Instructions: As directed J P [facility] O methocarbamol 750 mg tablet 750 mg PO TID Qty: 30 0RF tramadol [Ultram] 50 mg tablet 50 mg PO Q8H PRN (Reason: pain) 7 Days Qty: 21 0RF (DME) FreeStyle Jostin 2 Sensor Kit See Rx Instructions .Route Qty: 1 3RF Rx Instructions: As directed (DME) FreeStyle Jostin 2 [place] Misc See Rx Instructions .Route Qty: 1 0RF Rx Instructions: Check BS 4 times a day. linezolid 600 mg tablet 600 mg PO BID 14 Days Qty: 28 0RF Discharge Orders: Discharge ED (Routine); Ordered 03/12/22 Ordered By: Sukhjinder Perez Referrals: Vlad Corona, [Primary Care Provider] - Discharge Diet: Usual diet Discharge Activity: Increase activity as tolerated Patient Instructions: Chest Pain (ED), Paresthesia (ED), Weakness (ED) Activity Restrictions/Additional Instructions: Thank you for visiting the emergency department. You were seen and evaluated for chest pain and numbness as well as weakness which is different than your baseline. The exact cause of your symptoms is unclear as discussed. This is a challenging situation ultimately I am unsure of what else they would test for if we were to admit you to the hospital. Please continue your current medication regimen. Please follow-up with your primary care provider. Please return to the emergency department for worsening symptoms or anything else that you are concerned about a feel needs emergency department evaluation. Sign Out Sign Out Data: Patient Sign Out occurred on 03/12/22 at 17:13. Patient's care was discussed, and care was transferred from to Sukhjinder Perez MD. Coding Level of Care Code ED Admittance Attendant for Chg Fwd Exam Comprehensive Documented by User: Sukhjinder Perez MD 03/21/22 21:52 HPI - Weakness General: Chief complaint: Weakness Stated complaint: L SIDED WEAKNESS/ CHEST PAIN Time Seen by Provider: 03/12/22 16:37 PFSH ED PFSH: Medical History Adopted Arthritis BPH loc w urin obs/LUTS CHF (congestive heart failure), NYHA class III Coronary artery disease Hematospermia History of amputation of right great toe HTN (hypertension) Hyperlipidemia PAD (peripheral artery disease) Stroke Surgical History History of amputation of lesser toe of left foot History of appendectomy History of carpal tunnel release History of shoulder surgery Family History Other Hypertension Social History Smoking and tobacco status: former smoker Alcohol intake: current Alcohol intake frequency: holidays/special occasions only Adopted: Yes Lives independently: Yes Housing: Apartment Physical Exam Neuro: ROGER COMA SCALE: document GCS findings [place] coma scale total score: 15 Course Vital Signs: Vital signs: Vital Signs Pulse Rate 86 03/12/22 21:50 Respiratory Rate 18 03/12/22 21:50 Blood Pressure 138/99 03/12/22 21:50 Pulse Oximetry 97 03/12/22 21:50 MDM - Weakness Medical Decision Making Care was transferred to Dr. Perez. Please see his documentation for patient assessment, plan, and disposition. - Patient care handoff received from PERFECTO Cason. I have reviewed docume ntation and agree as documented. I personally saw and evaluated the patient. I reperformed cabrera portions of E/M. - Labs and xrays personally interpreted by me. EKGs reviewed showing sinus rhythm, first-degree AV block, bundle branch block. No STEMI. -Analgesia given. - Labs notable for no leukocytosis, normal hemoglobin. Metabolic panel with hyperglycemia but no evidence of DKA. Delta troponin is negative. - Imaging notable for chest x-ray with no lobar consolidation or pneumothorax. CT head negative for acute intracranial hemorrhage or mass. Given neurologic symptoms in combination with chest pain additional advanced imaging felt to be warranted. No evidence of LVO or acute aortic pathology. Incidental findings discussed. - Upon serial reexamination after treatment the patient was similar, did have some improvement with analgesia. - Based on patient history, evaluation, and testing as interpreted the most likely cause of the patient's condition is unclear. - The results of ED evaluation were discussed with the patient at length. Overall a very challenging situation. By the time I evaluated patient he was outside of tPA window, ultimately I do not feel that even if he had been evaluated within the window that he would have been a candidate for tPA just given physical exam findings and clinical history as well as high degree of comorbidity with consideration having to be given to other possible etiologies. With regards to his neurologic symptoms he clearly does not have an LVO. Additionally he is on medications for secondary stroke prevention including aspirin, Plavix, high-dose statin. With regards to chest pain upon further discussion the patient has been told that he needs CABG however due to poorly controlled diabetes is not a candidate. Therefore there essentially would be no benefit to additional inpatient cardiac testing. The patient is understanding and essentially agreeable with my assessment. I discussed prescriptions and/or symptomatic cares (if applicable) including appropriate and responsible use, followup plan, and return precautions. The patient verbalized understanding and felt safe for discharge. - Patient discharged in satisfactory condition. Lab Data : 03/12/22 15:24 03/12/22 15:24 Radiology Impressions Chest X-Ray 03/12/22 16:24 IMPRESSION: No acute finding. Head CT 03/12/22 16:52 IMPRESSION: 1. No acute intracranial abnormality. Chest CTA 03/12/22 17:48 IMPRESSION: 1. No evidence for pulmonary embolus or other acute finding. 2. 6 mm right pulmonary nodule. For patients at low risk (minimal or absent history of smoking and of other known risk factors), recommend CT Chest at 6-12 months, then consider CT Chest at 18-24 months. For patients at high risk (history of smoking or of other known risk factors), recommend CT Chest at 6-12 months, then CT Chest at 18-24 months. (Reference: Martha) References: Martha Gramajo et al. Guidelines for Management of Incidental Pulmonary Nodules Detected on CT Images: From the Fleischner Society 2017. Radiology. 2017;284(1):228-243. Head/Neck CTA 03/12/22 17:48 IMPRESSION: 1. 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 2. Calcified plaque in the bilateral cavernous internal carotid arteries with mild stenoses. IMPRESSION: 1. Noncalcified plaque with 40% stenosis in the distal left common carotid artery. 2. Calcified plaque with 20% stenosis in the proximal left internal carotid artery. REFERENCES: NASCET CRITERIA. The degree of internal carotid artery stenosis is based on NASCET criteria. Normal is no stenosis. Mild is less than 50% stenosis. Moderate is 50-69% stenosis. Severe is 70% to 99% stenosis. Total occlusion is no detectable patent lumen. Laboratory Results WBC 6.9 10^3/uL (4.0-10.0) 03/12/22 15: RBC 4.98 10^6/uL (4.1-5.3) 03/12/22 15:24 Hgb 15.1 g/dL (11.7-16.6) 03/12/22 15:24 Hct 44.5 % (42.0-52.0) 03/12/22 15:24 MCV 89.4 fl (80-94) 03/12/22 15:24 MCH 30.3 pg (28.0-34.0) 03/12/22 15:24 MCHC 33.9 g/dL (30.0-36.0) 03/12/22 15:24 RDW 13.9 % (12.1-15.1) 03/12/22 15:24 Plt Count 146 10^3/cmm (130-400) 03/12/22 15:24 MPV 11.1 fL (7.4-10.4) H 03/12/22 15:24 Neut % (Auto) 56.9 % 03/12/22 15:24 Lymph % (Auto) 31.3 % 03/12/22 15:24 [place] % (Auto) 8.6 % 03/12/22 15:24 Eos % (Auto) 1.6 % 03/12/22 15:24 Baso % (Auto) 1.3 % 03/12/22 15:24 Neut # (Auto) 3.90 10^3/uL (1.8-7.7) 03/12/22 15:24 Lymph # (Auto) 2.2 10^3/uL (0.8-4.8) 03/12/22 15:24 [place] # (Auto) 0.6 10^3/uL (0.2-0.9) 03/12/22 15:24 Eos # (Auto) 0.1 10^3/uL (0.0-0.8) 03/12/22 15:24 Baso # (Auto) 0.1 10^3/uL (0.0-0.1) 03/12/22 15:24 Nucleated RBC % (auto) 0 % 03/12/22 15:24 Nucleated RBCs # 0.0 /100WBC 03/12/22 15:24 Sodium 136 mmol/L (136-145) 03/12/22 15:24 Potassium 4.3 mmol/L (3.5-5.1) 03/12/22 15:24 Chloride 100 mmol/L (98-107) 03/12/22 15:24 Carbon Dioxide 26 mmol/L (22-29) 03/12/22 15:24 Anion Gap 14.3 (5-19) 03/12/22 15:24 BUN 14 mg/dL (8-23) 03/12/22 15:24 Creatinine 0.7 mg/dL (0.7-1.2) 03/12/22 15:24 GFR Calculation Not Reportable 03/12/22 15:24 Glucose 392 mg/dL (65-115) H 03/12/22 15:24 Calculated Osmolality 299 mOsm/kg (285-295) H 03/12/22 15:24 Calcium 9.4 mg/dL (8.5-10.5) 03/12/22 15:24 Total Bilirubin 0.4 mg/dL (0.15-1.2) 03/12/22 15:24 AST 25 U/L (0-40) 03/12/22 15:24 ALT 25 U/L (0-41) 03/12/22 15:24 Alkaline Phosphatase 221 IU/L (40-130) H 03/12/22 15:24 Troponin T Baseline 17 ng/L (0-15) H 03/12/22 15:24 Troponin T 120 Minute 15.75 ng/L (0-15) H 03/12/22 17:39 Delta Troponin T -1.25 ABS# (0-10) L 03/12/22 17:39 NT-Pro-B Natriuret Pep 379 pg/mL (0-450) 03/12/22 15:24 Total Protein 7.2 g/dL (6.6-8.7) 03/12/22 15:24 Albumin 4.0 g/dL (3.5-5.2) 03/12/22 15:24 Globulin 3.2 g/dL (1.3-4.6) 03/12/22 15:24 Critical Care Time Critical Care Time: Critical Care Time: Yes Total Critical Care Time: 35 Attestation: Due to a high probability of clinically significant, possibly life threatening deterioration, the patient required my highest level of attention and prepa redness to intervene emergently and I personally spent this critical care time directly and personally managing the patient. This critical care time included obtaining a history; examining the patient; pulse oximetry; ordering and review of laboratory and imaging studies; arranging urgent treatment with development of a management plan; evaluation of patient's response to treatment; frequent reassessment; and, discussions with other providers as applicable. It was exclusive of separately billable procedures. Discharge Plan Discharge Patient Disposition: Home Clinical Impression: Chest pain, Leg weakness, Paresthesia Condition: Stable Prescriptions: New Biofreeze (menthol) 4 % gel 1 applic topical Q8H PRN (Reason: pain) Qty: 89 0RF methocarbamol 750 mg tablet 750 mg PO Q8H Qty: 10 0RF No Action (DME) cam boot short to the right See Rx Instructions .ROUTE .MEDSUPPLY Qty: 1 0RF Rx Instructions: As directed furosemide [Lasix] 40 mg tablet 40 mg PO .COMPLEX Qty: 75 2RF Rx Instructions: 40 mg PO Take one and 1/2 tab morning and 1 tab in evening; potassium chloride 10 mEq tablet extended release 10 meq PO BID 0RF famotidine 40 mg tablet 40 mg PO DAILY 0RF tamsulosin 0.4 mg capsule 0.4 mg PO BID Qty: 180 3RF insulin aspart U-100 [Novolog Flexpen U-100 Insulin] 100 unit/mL (3 mL) insulin pen See Rx Instructions SUBCUT TID 0RF Rx Instructions: sliding scale SUBCUT three times daily; 10-15 units before meals. aspirin [Adult Low Dose Aspirin] 81 mg tablet,delayed release (DR/EC) 81 mg PO DAILY 0RF atorvastatin 80 mg tablet 80 mg PO DAILY 0RF duloxetine 30 mg capsule,delayed release(DR/EC) 30 mg PO BID 0RF finasteride 5 mg tablet 5 mg PO DAILY 0RF gabapentin 300 mg capsule 300 mg PO TID 0RF isosorbide mononitrate 120 mg tablet extended release 24 hr 120 mg PO DAILY 0RF nitroglycerin 0.4 mg tablet, sublingual 0.4 mg sublingual Q5M PRN (Reason: Chest Pain) 0RF Rx Instructions: do not exceed 3 doses per episode clopidogrel [Plavix] 75 mg tablet 75 mg PO DAILY 0RF ranolazine [Ranexa] 1,000 mg tablet extended release 12 hr 1,000 mg PO BID 0RF Lantus Solostar U-100 Insulin 100 unit/mL (3 mL) insulin pen 70 unit SUBCUT BID 0RF (DME) Diabetic Shoes with 3 pairs of molded inserts See Rx Instructions .ROUTE .MEDSUPPLY Qty: 1 0RF Rx Instructions: As directed (DME) Toe Alignment Splint See Rx Instructions .Route .MEDSUPPLY Qty: 1 0RF Rx Instructions: As directed Iodosorb 0.9 % gel 40 g topical ONCE Qty: 40 2RF (DME) Diabetic shoes with 3 inserts and Bilateral Toe Fillers See Rx Instructions .Route .MEDSUPPLY Qty: 1 0RF Rx Instructions: As directed J P [facility] O methocarbamol 750 mg tablet 750 mg PO TID Qty: 30 0RF tramadol [Ultram] 50 mg tablet 50 mg PO Q8H PRN (Reason: pain) 7 Days Qty: 21 0RF (DME) FreeStyle Jostin 2 Sensor Kit See Rx Instructions .Route Qty: 1 3RF Rx Instructions: As directed (DME) FreeStyle Jostin 2 [place] Misc See Rx Instructions .Route Qty: 1 0RF Rx Instructions: Check BS 4 times a day. linezolid 600 mg tablet 600 mg PO BID 14 Days Qty: 28 0RF Discharge Orders: Discharge ED (Routine); Ordered 03/12/22 Ordered By: Sukhjinder Perez Referrals: Vlad Corona, DO [Primary Care Provider] - Discharge Diet: Usual diet Discharge Activity: Increase activity as tolerated Patient Instructions: Chest Pain (ED), Paresthesia (ED), Weakness (ED) Activity Restrictions/Additional Instructions: Thank you for visiting the emergency department. You were seen and evaluated for chest pain and numbness as well as weakness which is different than your baseline. The exact cause of your symptoms is unclear as discussed. This is a challenging situation ultimately I am unsure of what else they would test for if we were to admit you to the hospital. Please continue your current medication regimen. Please follow-up with your primary care provider. Please return to the emergency department for worsening symptoms or anything else that you are concerned about a feel needs emergency department evaluation. Sign Out Sign Out Data: Patient Sign Out occurred on 03/12/22 at 17:13. Patient's care was discussed, and care was transferred from to Sukhjinder Perez MD. Coding Level of Care Code ED Admittance Attendant for [place] Fwd Exam Comprehensive
[2022-03-12 16:42] LABS: Basophils # 0.1 10^3/uL (0.0-0.1); Basophils % 1.3 %; Eosinophils # 0.1 10^3/uL (0.0-0.8); Eosinophils % 1.6 %; Hematocrit 44.5 % (42.0-52.0); Hemoglobin 15.1 g/dL (11.7-16.6); Lymphocytes # 2.2 10^3/uL (0.8-4.8); Lymphocytes % 31.3 %; Mean Corpuscular HGB Conc 33.9 g/dL (30.0-36.0); Mean Corpuscular Hemoglobin 30.3 pg (28.0-34.0); Mean Corpuscular Volume 89.4 fl (80-94); Mean Platelet Volume 11.1 fL (7.4-10.4); Monocytes # 0.6 10^3/uL (0.2-0.9); Monocytes % 8.6 %; Neutrophils % 56.9 %; Nucleated Red Blood Cells % 0 %; Platelet Count 146 10^3/cmm (130-400); Red Blood Count 4.98 10^6/uL (4.1-5.3); Red Cell Distribution Width 13.9 % (12.1-15.1); White Blood Count 6.9 10^3/uL (4.0-10.0)
--- NOTE | 2022-03-12 16:52 | CTR_ITS ---
PROCEDURE INFORMATION: Exam: CT Head Without Contrast Exam date and time: 03/12/2022 5:21 PM Age: 77 years old Clinical indication: Weakness, extremity; Left; Additional info: Lle weakness, numbness L side TECHNIQUE: Imaging protocol: Computed tomography of the head without contrast. Radiation optimization: All CT scans at this facility use at least one of these dose optimization techniques: automated exposure control; mA and/or kV adjustment per patient size (includes targeted exams where dose is matched to clinical indication); or iterative reconstruction. COMPARISON: No relevant prior studies available. RADIATION DOSE METRICS: Total DLP (mGy-cm): 1007.96 FINDINGS: Brain: Mild diffuse cortical volume loss. Moderate hypodensities in supratentorial periventricular and subcortical white matter, consistent with microangiopathy. No intracranial hemorrhage. Small lacunar infarct in the superior right cerebellum. Cerebral ventricles: Mild ventriculomegaly is most likely related to central volume loss. Paranasal sinuses: Visualized sinuses are unremarkable. No fluid levels. Mastoid air cells: Visualized mastoid air cells are well aerated. Orbital cavities: Prior cataract surgery. Vasculature: No hyperdense artery. Bones/joints: Unremarkable. No acute fracture. Soft tissues: Unremarkable. CT/CT head wo con* [id number] IMPRESSION: 1. No acute intracranial abnormality.
[2022-03-12 17:01] LABS: Troponin(5th) Baseline 17 ng/L (0-15)
[2022-03-12 17:04] LABS: Alanine Aminotransferase 25 U/L (0-41); Alkaline Phosphatase 221 IU/L (40-130); Anion Gap 14.3 (5-19); Aspartate Amino Transferase 25 U/L (0-40); Blood Urea Nitrogen 14 mg/dL (8-23); Calcium 9.4 mg/dL (8.5-10.5); Carbon Dioxide 26 mmol/L (22-29); Chloride 100 mmol/L (98-107); Creatinine Clr Calc Pharmacy 97.5858; Globulin 3.2 g/dL (1.3-4.6); Glucose 392 mg/dL (65-115); Osmolality Calculated 299 mOsm/kg (285-295); Potassium 4.3 mmol/L (3.5-5.1); Sodium 136 mmol/L (136-145); Total Bilirubin 0.4 mg/dL (0.15-1.2); Total Protein 7.2 g/dL (6.6-8.7)
[2022-03-12 17:14] LABS: NT Pro B Type Natriuretic Pept 379 pg/mL (0-450)
[2022-03-12 17:30] VITALS: BP 146/90
--- NOTE | 2022-03-12 17:48 | CTR_ITS ---
PROCEDURE INFORMATION: Exam: CT Angiography Head With Contrast, Arteriography Exam date and time: 03/12/2022 7:32 PM Age: 77 years old Clinical indication: Weakness; Additional info: Lle weakness, left sided sensory change TECHNIQUE: Imaging protocol: Computed tomography angiography of the head with contrast. Exam focused on the arteries. 3D rendering (Not supervised by radiologist): MIP and/or 3D reconstructed images were created by the technologist. Radiation optimization: All CT scans at this facility use at least one of these dose optimization techniques: automated exposure control; mA and/or kV adjustment per patient size (includes targeted exams where dose is matched to clinical indication); or iterative reconstruction. Contrast material: OMNI 350; Contrast volume: 75 ml; Contrast route: INTRAVENOUS (IV); COMPARISON: CT head wo con* [id number] 03/12/2022 5:21 PM RADIATION DOSE METRICS: Total DLP (mGy-cm): 2133.25 FINDINGS: ANTERIOR CIRCULATION: Right internal carotid artery: Calcified plaque in the cavernous right internal carotid artery with mild stenosis. Right middle cerebral artery: Unremarkable. No occlusion or significant stenosis. No aneurysm. Right anterior cerebral artery: Unremarkable. No occlusion or significant stenosis. No aneurysm. Left internal carotid artery: Calcified plaque in the cavernous left internal carotid artery with mild stenosis. Left middle cerebral artery: Unremarkable. No occlusion or significant stenosis. No aneurysm. Left anterior cerebral artery: Unremarkable. No occlusion or significant stenosis. No aneurysm. POSTERIOR CIRCULATION: Right vertebral artery: Congenitally small right vertebral artery calcified plaque in severe stool denotes is proximally. Left vertebral artery: Mild calcified plaque in the left vertebral artery with no significant stenosis. Basilar artery: Unremarkable. No occlusion or significant stenosis. No aneurysm. Right posterior cerebral artery: Unremarkable. No occlusion or significant stenosis. No aneurysm. Left posterior cerebral artery: Unremarkable. No occlusion or significant stenosis. No aneurysm. Brain: Moderate hypodensities in supratentorial periventricular and subcortical white matter, consistent with microangiopathy. No intracranial hemorrhage. Cerebral ventricles: No ventriculomegaly. Bones/joints: Unremarkable. No acute fracture. Soft tissues: Unremarkable. PROCEDURE INFORMATION: Exam: CT Angiography Neck With Contrast Exam date and time: 03/12/2022 7:32 PM Age: 77 years old Clinical indication: Weakness; Additional info: Lle weakness, left sided sensory change TECHNIQUE: Imaging protocol: Computed tomography angiography of the neck with contrast. 3D rendering (Not supervised by radiologist): MIP and/or 3D reconstructed images were created by the technologist. Radiation optimization: All CT scans at this facility use at least one of these dose optimization techniques: automated exposure control; mA and/or kV adjustment per patient size (includes targeted exams where dose is matched to clinical indication); or iterative reconstruction. Contrast material: OMNI 350; Contrast volume: 75 ml; Contrast route: INTRAVENOUS (IV); COMPARISON: CT head wo con* [id number] 03/12/2022 5:21 PM RADIATION DOSE METRICS: Total DLP (mGy-cm): 2133.25 FINDINGS: Right common carotid artery: Noncalcified plaque in the distal right common carotid artery with 20% stenosis. Right internal carotid artery: No stenosis of the extracranial segment. No dissection or occlusion. Right external carotid artery: No occlusion or stenosis of the origin. Left common carotid artery: Noncalcified plaque in the distal left common carotid artery with 40% stenosis. Left internal carotid artery: Calcified plaque in the proximal left internal carotid artery with 20% stenosis. Left external carotid artery: No occlusion or stenosis of the origin. Right vertebral artery: Congenitally small right vertebral artery with multifocal severe stenoses at the C1-C2 levels. Left vertebral artery: No stenosis. No dissection or occlusion. Left subclavian artery: Calcified plaque in the proximal left subclavian artery without stenosis. Aorta: The aortic arch and origins of the great vessels are not included on the images. Soft tissues: Normal. No significant soft tissue swelling. Bones/joints: No acute fracture. CT/CT angio headneck* [id number] IMPRESSION: 1. 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 2. Calcified plaque in the bilateral cavernous internal carotid arteries with mild stenoses. IMPRESSION: 1. Noncalcified plaque with 40% stenosis in the distal left common carotid artery. 2. Calcified plaque with 20% stenosis in the proximal left internal carotid artery. REFERENCES: NASCET CRITERIA. The degree of internal carotid artery stenosis is based on NASCET criteria. Normal is no stenosis. Mild is less than 50% stenosis. Moderate is 50-69% stenosis. Severe is 70% to 99% stenosis. Total occlusion is no detectable patent lumen.
--- NOTE | 2022-03-12 17:48 | CTR_ITS ---
PROCEDURE INFORMATION: Exam: CTA Chest With Contrast Exam date and time: 03/12/2022 7:42 PM Age: 77 years old Clinical indication: Angina; Prior surgery; Surgery date: 6+ months; Surgery type: Stents; Additional info: Chest pain, sensory changes TECHNIQUE: Imaging protocol: Computed tomographic angiography of the chest with contrast. 3D rendering (Not supervised by radiologist): MIP and/or 3D reconstructed images were created by the technologist. Radiation optimization: All CT scans at this facility use at least one of these dose optimization techniques: automated exposure control; mA and/or kV adjustment per patient size (includes targeted exams where dose is matched to clinical indication); or iterative reconstruction. Contrast material: OMNI 350; Contrast volume: 75 ml; Contrast route: INTRAVENOUS (IV); COMPARISON: CR XR chest 1V portable [id number] 03/12/2022 4:32 PM RADIATION DOSE METRICS: Total DLP (mGy-cm): 609.06 FINDINGS: Pulmonary arteries: Normal. No pulmonary emboli. Aorta: Unremarkable. No aortic aneurysm. No aortic dissection. Lungs: Calcified granulomas in the right lung. 6 mm right lower lobe nodule, series 3, image 47. Minimal atelectasis. The lungs are otherwise clear. Pleural spaces: Unremarkable. No pneumothorax. No pleural effusion. Heart: Coronary artery calcifications. The heart size is normal. Lymph nodes: Unremarkable. No enlarged lymph nodes. Gallbladder and bile ducts: Cholelithiasis. No visible gallbladder wall thickening. Kidneys and ureters: Excreted contrast in the renal collecting systems. No hydronephrosis. Bones/joints: Unremarkable. No acute fracture. Soft tissues: Unremarkable. CT/CT angio chest [id number] IMPRESSION: 1. No evidence for pulmonary embolus or other acute finding. 2. 6 mm right pulmonary nodule. For patients at low risk (minimal or absent history of smoking and of other known risk factors), recommend CT Chest at 6-12 months, then consider CT Chest at 18-24 months. For patients at high risk (history of smoking or of other known risk factors), recommend CT Chest at 6-12 months, then CT Chest at 18-24 months. (Reference: Martha) References: Martha Gramajo et al. Guidelines for Management of Incidental Pulmonary Nodules Detected on CT Images: From the Fleischner Society 2017. Radiology. 2017;284(1):228-243.
[2022-03-12 18:14] LABS: Troponin 5 2HR 15.75 ng/L (0-15)
[2022-03-12 18:19] LABS: Troponin 5 2HR Delta -1.25 ABS# (0-10)
--- NOTE | 2022-03-12 18:24 | ECG_ITS ---
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 Measurements Intervals [place] Rate: 85 P: 131 ME: 213 QRS: 93 QRSD: 147 T: 227 QT: 408 QTc: 486 Interpretive Statements SINUS RHYTHM WITH FIRST DEGREE AV BLOCK ARM LEADS REVERSED [INVERTED P AND QRS IN I] RIGHT BUNDLE BRANCH BLOCK Compared to ECG 03/12/2022 16:32:06 Right bundle-branch block no longer present T-wave abnormality no longer present Possible ischemia no longer present Electronically Signed On 03-12-2022 20:04:19 CDT by Ruby Rojas M.D. [id number]
--- NOTE | 2022-03-12 19:57 | PC.NURSE ---
Pt provided ice water at this time.
[2022-03-12 21:50] VITALS: BP 138/99; PULSE 86; RESP 18; O2SAT 97
== END 2022-03-12 21:51 | disposition home or self-care (01) ==
PROVIDERS: Physician Assistant; Emergency Provider Emergency Medicine; PCP Emergency Medicine Emergency Medical Services
DX: R07.9 Chest pain, unspecified (principal); R53.1 Weakness; R20.2 Paresthesia of skin; I11.0 Hypertensive heart disease with heart failure; I50.9 Heart failure, unspecified; E78.5 Hyperlipidemia, unspecified; I25.10 Atherosclerotic heart disease of native coronary artery without angina pectoris
CPT/HCPCS: 36415; 70450; 70496; 70498; 71045; 71275; 80053; 83880; 84484; 85025; 93005; 99285; Q9967

== ENCOUNTER → 2022-04-02 15:44 | Outpatient (BNVA) | payer OTHER, SELFPAY | PROVIDERS: PCP Emergency Medicine Emergency Medical Services; Visit Provider Podiatrist Foot & Ankle Surgery | DX: Z98.890 Other specified postprocedural states (principal); E11.621 Type 2 diabetes mellitus with foot ulcer; L97.522 Non-pressure chronic ulcer of other part of left foot with fat layer exposed; Z89.411 Acquired absence of right great toe; Z89.421 Acquired absence of other right toe(s); Z89.422 Acquired absence of other left toe(s); E11.65 Type 2 diabetes mellitus with hyperglycemia; E11.40 Type 2 diabetes mellitus with diabetic neuropathy, unspecified; I73.9 Peripheral vascular disease, unspecified | CPT/HCPCS: 11042 ==

== ENCOUNTER → 2022-04-22 16:32 | Outpatient (BNVA) | payer OTHER, SELFPAY | PROVIDERS: PCP Emergency Medicine Emergency Medical Services; Visit Provider Urology | DX: N40.1 Benign prostatic hyperplasia with lower urinary tract symptoms (principal); N47.1 Phimosis | CPT/HCPCS: 99213 ==

== ENCOUNTER → 2022-04-23 12:53 | Outpatient (BNVA) | payer OTHER, SELFPAY | PROVIDERS: PCP Emergency Medicine Emergency Medical Services; Visit Provider Podiatrist Foot & Ankle Surgery | DX: Z89.411 Acquired absence of right great toe (principal); Z89.421 Acquired absence of other right toe(s); Z89.422 Acquired absence of other left toe(s); E11.65 Type 2 diabetes mellitus with hyperglycemia; E11.40 Type 2 diabetes mellitus with diabetic neuropathy, unspecified; I73.9 Peripheral vascular disease, unspecified; L97.522 Non-pressure chronic ulcer of other part of left foot with fat layer exposed | CPT/HCPCS: 99214 ==

== ENCOUNTER → 2022-05-13 14:58 | Outpatient (BNVA) | payer OTHER, SELFPAY | PROVIDERS: PCP Emergency Medicine Emergency Medical Services; Visit Provider Podiatrist Foot & Ankle Surgery | DX: E11.65 Type 2 diabetes mellitus with hyperglycemia (principal); E11.40 Type 2 diabetes mellitus with diabetic neuropathy, unspecified; L97.522 Non-pressure chronic ulcer of other part of left foot with fat layer exposed; Z89.411 Acquired absence of right great toe; Z89.421 Acquired absence of other right toe(s); Z89.422 Acquired absence of other left toe(s); I73.9 Peripheral vascular disease, unspecified | CPT/HCPCS: 99214 ==

== ENCOUNTER 2022-06-06 07:35 | Inpatient (IN) | payer OTHER, MEDICARE, SELFPAY ==
[2022-06-06] VITALS (27 sets, daily range): BP systolic 104–187; BP diastolic 65–113; PULSE 70–93; RESP 13–33; TEMP 36.4–36.8; O2SAT 94–96; BMI 31.1
--- NOTE | 2022-06-06 07:39 | ED_ITS ---
HPI - Head Injury General: Chief complaint: Fall Stated complaint: Fell, Hit head, Weakness Time Seen by Provider: 06/06/22 07:38 History of Present Illness: Mr. Dumont is a 77-year-old gentleman with history of hypertension, hyperlipidemia, peripheral arterial disease, diabetes, CAD, neuropathy, CHF who presents to the emergency department due to fall and syncope. His first fall was approximately 1 week ago and preceded by tripping. He typically gets around with a wheelchair and the wheelchair got tangled in his feet causing him to fall. He did hit his head and since that time has had increased weakness. Additionally endorses 2 or 3 episodes of syncope preceded by lightheadedness. He denies preceding chest pain or worsening shortness of breath though does have shortness of breath at baseline. He denies associated specific provoking events, symptoms are not preceded by position changes or other known specific provoking factors. When present symptom intensity is moderate to severe. Additionally he has generalized malaise and increased weakness. He has had some issues with continence though denies low back pain. Patient's daughter notes that he has moderate worsening of lower extremity edema. No other specific changes in health, exacerbating, or alleviating factors identified. Onset (ago): week(s) Mechanism of Injury: fall Place: home Loss of Consciousness: unsure Review of Systems General: Reports: 10 or more systems reviewed and unremarkable except in HPI a nd below PFSH ED PFSH: Medical History Adopted Arthritis BPH loc w urin obs/LUTS CHF (congestive heart failure), NYHA class III Coronary artery disease Hematospermia History of amputation of right great toe HTN (hypertension) Hyperlipidemia PAD (peripheral artery disease) Stroke Surgical History History of amputation of lesser toe of left foot History of appendectomy History of carpal tunnel release History of shoulder surgery Family History Father No problems noted. Mother No problems noted. Other Hypertension Social History Smoking and tobacco status: former smoker Alcohol intake: current Alcohol intake frequency: holidays/special occasions only Marital status: Current occupational status: retired History of recent travel: No Physical Exam Const: COMMON NORMALS: alert GENERAL APPEARANCE: cooperative and well developed HENMT: COMMON NORMALS: normocephalic and atraumatic HEAD & SCALP: normocephalic and atraumatic Eye: COMMON NORMALS: conjunctivae normal CONJUNCTIVA: Yes conjunctivae normal SCLERA: sclerae normal Neck/C-Spine: COMMON NORMALS: supple GENERAL: Yes trachea midline Resp: EFFORT & INSPECTION: Yes able to speak in complete sentences AUSCULTATION: diminished lung sounds Cardio: COMMON NORMALS: regular rate and regular rhythm RATE: regular rate RHYTHM: regular rhythm GI: COMMON NORMALS: Soft to palpation PALPATION: Yes Soft to palpation and No Tenderness to palpation present (GI) PERCUSSION: normal to percussion Extremity: GENERAL: Yes normal exam except as noted and Yes edema (2+ bilateral) Neuro: COMMON NORMALS: moves all extremities SENSORIUM/ORIENTATION: Yes alert and No Orientation impaired Psych: COMMON NORMALS: mental status grossly normal and Normal thought process present THOUGHT PROCESS: Normal thought process present Skin: NARRATIVE SKIN EXAM: Chronic appearing wounds bilateral lower extremities with scabs present, no overlying cellulitis or obvious superimposed infection. Course ED course: - Patient was seen and evaluated by me at bedside - Patient placed on cardiac monitors, IV access obtained - Initial evaluation notable for exam as above. - Labs and xrays personally interpreted by me. EKG notable for sinus rhythm with first-degree AV block intermittently present as well as right bundle branch block.. No STEMI. - Fluids given - Labs notable for no leukocytosis, normal hemoglobin. Metabolic panel without acute derangement to explain symptoms. Delta troponin is negative. BNP mildly increased. TSH elevated with mildly low free T4 - Regarding patient's thyroid function he does not present as myxedema coma. Urinalysis not concerning for urinary tract infection given squamous epithelial contamination. - Imaging notable for chronic appearing changes noted on chest x-ray which is roughly similar to prior. Head and neck CT negative for acute traumatic injury. Low back with significant stenosis though patient does not have acute evidence of spinal cord compression requiring emergent surgery consult. - Upon serial reexamination after treatment the patient was not significantly improved - Based on patient history, evaluation, and testing as interpreted the most likely cause of the patient's condition is syncope that is not low risk as well as generalized weakness - The results of ED evaluation were discussed with the patient including plan for admission due to requirement for level of care not available if discharged to prevent significant worsening/deterioration. - Admitting service was contacted and Dr Chacon with the hospitalist service agreed to admit the patient - Patient was admitted without further deterioration or significant events. Note: Click bubbles or prepopulated abel in note writing are used for assistance with data collection and billing and are inherently more limited than narrative and other text portions of this note. Please use narrative for additional clinical history and defer to narrative/free test for any case of contradictory information. If information appears in only free text or click bubble it should be considered present or absent as reported. Please contact note newspaper writer for clarifications of clinical information or contradictory information. MDM is a brief summary, contradictory or erroneous seeming information should be clarified and full note should be reviewed. Vital Signs: Vital signs: Vital Signs Temperature 98.6 F 06/17/22 00:00 Pulse Rate 67 06/17/22 01:45 Respiratory Rate 18 06/17/22 01:45 Blood Pressure 130/71 06/17/22 00:00 Pulse Oximetry 94 06/17/22 01:45 Oxygen Delivery Me thod 06/17/22 01:45 Oxygen Flow Rate 2 06/16/22 20:00 MDM - Head Injury Medcial Decision Making 77-year-old gentleman presenting with recurrent syncope. No focal neurologic deficits appreciated on exam. No obvious etiology identified on laboratory or imaging studies. Patient is not low risk by syncope rules. Admitted for further management. Medical Records I reviewed the patient's medical records. Lab Data I reviewed the patient's lab results. : 06/16/22 03:20 06/16/22 03:20 Radiology Impressions Cervical Spine CT 06/06/22 07:50 IMPRESSION: 1. No acute cervical spine fracture. Multilevel central and foraminal stenoses and osteophytes. 2. Large anterior osteophytes from C4 to C7. 3. Small erosions at the odontoid tip. Head CT 06/06/22 07:50 IMPRESSION: 1. No acute intracranial hemorrhage or edema. 2. Moderate atrophy and small vessel ischemic disease. 3. No fracture. Lumbar Spine CT 06/06/22 08:03 IMPRESSION: 1. No acute lumbar spine fracture identified. 2. Severe central, bilateral subarticular recess and moderate foraminal stenosis at L4-5. 3. Mild central and bilateral subarticular recess stenosis at L5-S1 and moderate foraminal stenosis. 4. Mild central, bilateral foraminal subarticular recess stenosis at L3-4. Hip/Pelvis X-Ray 06/06/22 12:51 IMPRESSION: 1. [id number] DJD and osteopenia. No fracture or other significant f inding. AP view the left hip shows no acute fracture. Mild DJD of the joint compartment. Old fracture of the greater trochanter. Osteopenia. IMPRESSION: 1. Old displaced greater trochanteric fracture. No acute fracture seen. 2. Mild DJD. Osteopenia. Carotid Doppler Study 06/06/22 19:15 IMPRESSION: No carotid arterial stenosis. REFERENCES: SRU CRITERIA. The degree of internal carotid artery stenosis is based on criteria defined by the Society of Radiologists in Ultrasound (SRU). Normal is no stenosis. Mild is less than 50% stenosis. Moderate is 50-69% stenosis. Severe is greater than 69% stenosis to near occlusion. Near occlusion is a markedly narrowed lumen. Total occlusion is no detectable patent lumen. Venous Duplex 06/06/22 19:15 IMPRESSION: No evidence of deep vein thrombosis. Chest X-Ray 06/10/22 08:15 IMPRESSION: 1. Mild interstitial lung disease. 2. No focal pneumonia. 3. No fluid overload. Laboratory Results WBC 6.5 10^3/uL (4.0-10.0) 06/06/22 08:05 RBC 4.24 10^6/uL (4.1-5.3) 06/06/22 08:05 Hgb 13.2 g/dL (11.7-16.6) 06/06/22 08:05 Hct 39.2 % (42.0-52.0) L 06/06/22 08:05 MCV 92.5 fl (80-94) 06/06/22 08:05 MCH 31.1 pg (28.0-34.0) 06/06/22 08:05 MCHC 33.7 g/dL (30.0-36.0) 06/06/22 08:05 RDW 14.4 % (12.1-15.1) 06/06/22 08:05 Plt Count 121 10^3/cmm (130-400) L 06/06/22 08:05 MPV 11.0 fL (7.4-10.4) H 06/06/22 08:05 Neut % (Auto) 60.8 % 06/06/22 08:05 Lymph % (Auto) 25.7 % 06/06/22 08:05 [place] % (Auto) 9.7 % 06/06/22 08:05 Eos % (Auto) 2.3 % 06/06/22 08:05 Baso % (Auto) 1.2 % 06/06/22 08:05 Neut # (Auto) 3.96 10^3/uL (1.8-7.7) 06/06/22 08:05 Lymph # (Auto) 1.7 10^3/uL (0.8-4.8) 06/06/22 08:05 [place] # (Auto) 0.6 10^3/uL (0.2-0.9) 06/06/22 08:05 Eos # (Auto) 0.2 10^3/uL (0.0-0.8) 06/06/22 08:05 Baso # (Auto) 0.1 10^3/uL (0.0-0.1) 06/06/22 08:05 Nucleated RBC % (auto) 0 % 06/06/22 08:05 Nucleated RBCs # 0.0 /100WBC 06/06/22 08:05 ESR 10 mm/hr (0-10) 06/06/22 08:05 Sodium 139 mmol/L (136-145) 06/06/22 08:05 Potassium 3.9 mmol/L (3.5-5.1) 06/06/22 08:05 Chloride 105 mmol/L (98-107) 06/06/22 08:05 Carbon Dioxide 24 mmol/L (22-29) 06/06/22 08:05 Anion Gap 13.8 (5-19) 06/06/22 08:05 BUN 18 mg/dL (8-23) 06/06/22 08:05 Creatinine 0.6 mg/dL (0.7-1.2) L 06/06/22 08:05 GFR Calculation Not Reportable 06/06/22 08:05 Glucose 108 mg/dL (65-115) 06/06/22 08:05 POC Glucose 115 mg/dL (70-110) H 06/06/22 08:41 Calculated Osmolality 292 mOsm/kg (285-295) 06/06/22 08:05 Calcium 8.9 mg/dL (8.5-10.5) 06/06/22 08:05 Magnesium 1.7 mg/dL (1.7-2.3) 06/06/22 08:05 Total Bilirubin 0.6 mg/dL (0.15-1.2) 06/06/22 08:05 AST 22 U/L (0-40) 06/06/22 08:05 ALT 18 U/L (0-41) 06/06/22 08:05 Alkaline Phosphatase 139 IU/L (40-130) H 06/06/22 08:05 Troponin T Baseline 31 ng/L (0-15) H 06/06/22 08:05 Troponin T 120 Minute 28.85 ng/L (0-15) H 06/06/22 10:05 Delta Troponin T -2.15 ABS# (0-10) L 06/06/22 10:05 C-Reactive Protein 3.5 mg/L (0.0-4.9) 06/06/22 10:05 NT-Pro-B Natriuret Pep 1360 pg/mL (0-450) H 06/06/22 08:05 Total Protein 6.4 g/dL (6.6-8.7) L 06/06/22 08:05 Albumin 3.5 g/dL (3.5-5.2) 06/06/22 08:05 Globulin 2.5 g/dL (1.3-4.6) 06/06/22 08:05 Procalcitonin 0.05 ng/mL (0-0.5) 06/06/22 10:05 TSH 8.83 uIU/mL (0.27-4.20) H 06/06/22 08:05 Free T4 0.77 ng/dL (0.82-1.77) L 06/06/22 08:05 Urine Color Yellow (Yellow) 06/06/22 11:10 Urine Appearance Clear (CLEAR) 06/06/22 11:10 Urine pH 5 (5-7) 06/06/22 11:10 Ur Specific [place] 1.015 (1.005-1.030) 06/06/22 11:10 Urine Protein Trace (Negative) 06/06/22 11:10 Urine Glucose (UA) Trace (Normal) H 06/06/22 11:10 Urine Ketones Negative (Negative) 06/06/22 11:10 Urine Blood Neg (Negative) 06/06/22 11:10 Urine Nitrate Negative (Negative) 06/06/22 11:10 Urine Bilirubin Neg (Negative) 06/06/22 11:10 Urine Urobilinogen Norm mg/dL (Negative) 06/06/22 11:10 Ur Leukocyte Esterase 1+ (Negative) H 06/06/22 11:10 Urine RBC 0-4 /hpf (0-2) H 06/06/22 11:10 Urine WBC 0-4 /hpf (0-5) H 06/06/22 11:10 Ur Squamous Epith Cells 5-10 /hpf (0-5) H 06/06/22 11:10 Amorphous Sediment Not Reportable 06/06/22 11:10 Urine Bacteria None /hpf (NONE) 06/06/22 11:10 Discharge Plan Discharge Patient Disposition: Placed in Observation Admit Provider: Adonay Chacon Clinical Impression: Syncope Coding Level of Care Code ED Tv News Director for Chg Fwd Exam Comprehensive
--- NOTE | 2022-06-06 07:50 | CT_ITS ---
WS: [id number] CT CERVICAL SPINE HISTORY: fall, head injury TECHNIQUE: Contiguous 2.5 mm axial imaging performed through the entire cervical spine. Sagittal and coronal reformats also performed. All CT scans at [facility] use at least one of these dose o ptimization techniques: automated exposure control; mA and/or kV adjustment per patient size (include s targeted exams where dose is matched to clinical indication); or iterative reconstruction. DLP: 1504.32 mGy.cm COMPARISON: None available. Increase in cervical lordosis with mild scoliosis. Craniocervical junction is normally aligned. Small erosions at the tip of the odontoid process. Disc spaces are narrowed with large osteophytes through out the cervical spine. Lateral masses of C1 and C2 are aligned. C2-C3: Annular disc bulging. Facet joint arthritis and LEFT foraminal stenosis. C3-C4: Annular disc bulging and facet arthritis. Calcified disc. Moderate central and foraminal steno sis. C4-C5: Calcified disc posteriorly. Mild central and foraminal stenosis. C5-C6: Mild foraminal stenosis. C6-C7: Osteophytic ridging. Foraminal stenosis. C7-T1: Osteophytic ridging and mild foraminal stenosis. Soft tissues are normal. Lung apices are clear. CT/CT cervical spin wo con* [id number] IMPRESSION: 1. No acute cervical spine fracture. Multilevel central and foraminal stenoses and osteophytes. 2. Large anterior osteophytes from C4 to C7. 3. Small erosions at the odontoid tip.
--- NOTE | 2022-06-06 07:50 | CT_ITS ---
WS: [id number] CT HEAD NONCONTRAST HISTORY: fall, head strike TECHNIQUE: Contiguous axial imaging performed through the brain in 2.5 mm imaging. Bone and soft tiss ue windows. Sagittal and coronal reformats reviewed. All CT scans at [facility] use at least one of these dose optimization techniques: automated exposure control; mA and/or kV adjustment per pa tient size (includes targeted exams where dose is matched to clinical indication); or iterative recon struction. DLP: 1504.32 mGy.cm COMPARISON: 03/12/2022 No acute intracranial hemorrhage, midline shift or mass effect. Moderate atrophy and small vessel ischemic disease. No prior infarct. Ventricles: Mild ventriculomegaly on the basis of atrophy. No inferior displacement of the cerebellar tonsils. Paranasal sinuses: As visualized are clear. Mastoid air cells: Well pneumatized. Calvarium and scalp: Skull is intact with no soft tissue edema or swelling. CT/CT head wo con* [id number] IMPRESSION: 1. No acute intracranial hemorrhage or edema. 2. Moderate atrophy and small vessel ischemic disease. 3. No fracture.
--- NOTE | 2022-06-06 07:57 | XR_ITS ---
WS: [id number] Exam: XR chest 1V portable [id number] Date/Time of Exam: 06/06/2022 7:58 AM Reason For Exam: weakness generalized, syncope Comparison 03/12/2022 Chronic interstitial changes and plaque atelectasis noted in the basal areas. No acute infiltrates. T he lungs are fully expanded. No pleural effusions. Cardiomediastinal silhouette is unremarkable. Mode rately advanced DJD of both shoulders. Monitoring leads superimpose the chest. Several old bilateral rib fractures. XR/XR chest 1V portable [id number] IMPRESSION: 1. Chronic interstitial changes and areas of plaque atelectasis in the lower jannet ng zones. No acute process noted.
--- NOTE | 2022-06-06 08:01 | ECG_ITS ---
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 Measurements Intervals [place] Rate: 78 P: 59 ME: 213 QRS: 101 QRSD: 153 T: -53 QT: 423 QTc: 483 Interpretive Statements SINUS RHYTHM WITH FIRST DEGREE AV BLOCK RIGHT AXIS DEVIATION [QRS AXIS > 100] RIGHT BUNDLE BRANCH BLOCK [120+ ms QRS DURATION, UPRIGHT V1, 40+ ms S IN I/aVL/V4/V5/V6] MODERATE T-WAVE ABNORMALITY, CONSIDER LATERAL ISCHEMIA [-0.1+ mV T WAVE IN I/aVL/V5/V6] MODERATE T-WAVE ABNORMALITY, CONSIDER INFERIOR ISCHEMIA [-0.1+ mV T WAVE IN II/aVF] Compared to ECG 03/12/2022 18:19:43 Right-axis deviation now present T-wave abnormality now present Possible ischemia now present Electronically Signed On 06-06-2022 10:31:23 CDT by Ruby Rojas M.D. [id number]
--- NOTE | 2022-06-06 08:03 | CT_ITS ---
WS: [id number] CT LUMBAR SPINE, noncontrast. HISTORY: fall, back pain TECHNIQUE: Contiguous 2.5 mm axial imaging are performed. Sagittal and coronal reformats are submitte d and reviewed. All CT scans at [facility] use at least one of these dose optimization techni ques: automated exposure control; mA and/or kV adjustment per patient size (includes targeted exams w here dose is matched to clinical indication); or iterative reconstruction. IV contrast: None DLP: 1007.29 mGy.cm COMPARISON: None available. Mild increase in the lumbar lordosis. Vertebral body heights are maintained. No acute fracture is adrian ntified. Disc spaces are maintained. Endplate osteophytes and facet arthritis. Mild scoliosis. Mild n arrowing of the SI joints. L1-2: Mild disc bulge. L2-3: Mild disc bulging. Mild facet arthritis. L3-4: Diffuse annular disc bulging and facet joint arthritis. Mild central, bilateral foraminal subar ticular recess stenosis. L4-5: Diffuse annular disc bulging and osteophytic ridging. Severe central and bilateral subarticular recess stenosis and moderate foraminal stenosis. L5-S1: Annular disc bulging with a small central disc protrusion. Mild central and bilateral subartic ular recess stenosis. Heavy calcification throughout the aorta. CT/CT lumbar spine wo con* [id number] IMPRESSION: 1. No acute lumbar spine fracture identified. 2. Severe central, bilateral subarticular recess and moderate foraminal stenos is at L4-5. 3. Mild central and bilateral subarticular recess stenosis at L5-S1 and modera te foraminal stenosis. 4. Mild central, bilateral foraminal subarticular recess stenosis at L3-4.
[2022-06-06 08:15] LABS: Basophils # 0.1 10^3/uL (0.0-0.1); Lymphocytes # 1.7 10^3/uL (0.8-4.8); Mean Corpuscular HGB Conc 33.7 g/dL (30.0-36.0); Mean Corpuscular Hemoglobin 31.1 pg (28.0-34.0); Mean Corpuscular Volume 92.5 fl (80-94); Nucleated Red Blood Cells % 0 %
[2022-06-06 08:35] LABS: Troponin(5th) Baseline 31 ng/L (0-15)
[2022-06-06 08:41] LABS: Alanine Aminotransferase 18 U/L (0-41); Albumin Level 3.5 g/dL (3.5-5.2); Aspartate Amino Transferase 22 U/L (0-40); Chloride 105 mmol/L (98-107); Globulin 2.5 g/dL (1.3-4.6); Glucose 108 mg/dL (65-115); Potassium 3.9 mmol/L (3.5-5.1); Sodium 139 mmol/L (136-145)
[2022-06-06 08:45] LABS: Glucose Point of Care 115 mg/dL (70-110)
[2022-06-06 08:54] LABS: Alkaline Phosphatase 139 IU/L (40-130); Anion Gap 13.8 (5-19); Blood Urea Nitrogen 18 mg/dL (8-23); Calcium 8.9 mg/dL (8.5-10.5); Carbon Dioxide 24 mmol/L (22-29); Magnesium 1.7 mg/dL (1.7-2.3); NT Pro B Type Natriuretic Pept 1360 pg/mL (0-450); Osmolality Calculated 292 mOsm/kg (285-295); Thyroid Stimulating Hormone 8.83 uIU/mL (0.27-4.20); Total Bilirubin 0.6 mg/dL (0.15-1.2); Total Protein 6.4 g/dL (6.6-8.7)
[2022-06-06 09:02] LABS: Basophils % 1.2 %; Eosinophils # 0.2 10^3/uL (0.0-0.8); Eosinophils % 2.3 %; Hematocrit 39.2 % (42.0-52.0); Hemoglobin 13.2 g/dL (11.7-16.6); Lymphocytes % 25.7 %; Monocytes # 0.6 10^3/uL (0.2-0.9); Monocytes % 9.7 %; Neutrophils # 3.96 10^3/uL (1.8-7.7); Neutrophils % 60.8 %; Platelet Count 121 10^3/cmm (130-400); Red Blood Count 4.24 10^6/uL (4.1-5.3); Red Cell Distribution Width 14.4 % (12.1-15.1); White Blood Count 6.5 10^3/uL (4.0-10.0)
[2022-06-06 09:27] LABS: Free T4 Free Thyroxine 0.77 ng/dL (0.82-1.77)
--- NOTE | 2022-06-06 09:47 | ECG_ITS ---
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 Measurements Intervals [place] Rate: 75 P: 23 IN: 184 QRS: 107 QRSD: 148 T: -51 QT: 437 QTc: 488 Interpretive Statements SINUS RHYTHM RIGHT AXIS DEVIATION [QRS AXIS > 100] RIGHT BUNDLE BRANCH BLOCK [120+ ms QRS DURATION, UPRIGHT V1, 40+ ms S IN I/aVL/V4/V5/V6] MODERATE T-WAVE ABNORMALITY, CONSIDER LATERAL ISCHEMIA [-0.1+ mV T WAVE IN I/aVL/V5/V6] MODERATE T-WAVE ABNORMALITY, CONSIDER INFERIOR ISCHEMIA [-0.1+ mV T WAVE IN II/aVF] Compared to ECG 06/06/2022 08:01:14 First degree AV block no longer present T-wave abnormality still present Possible ischemia still present Electronically Signed On 06-06-2022 10:33:56 CDT by Ruby Rojas M.D. [id number]
[2022-06-06 10:47] LABS: Troponin 5 2HR 28.85 ng/L (0-15)
[2022-06-06 10:51] LABS: Troponin 5 2HR Delta -2.15 ABS# (0-10)
[2022-06-06 11:30] LABS: Add Urine Microscopic? YES; Bilirubin Urine Neg (Negative); Blood Urine Neg (Negative); Glucose Urine UA Trace (Normal); Ketones Urine Negative (Negative); Leukocyte Esterase Urine 1+ (Negative); Nitrate Urine Negative (Negative); Protein Urine Trace (Negative); Specific Gravity, Urine 1.015 (1.005-1.030); Urine Appearance Clear (CLEAR); Urine Color Yellow (Yellow); Urobilinogen Urine Norm (Negative); pH Urine 5 (5-7)
[2022-06-06 11:33] LABS: Add Urine Culture? No; RBC Urine 0-4 /hpf (0-2); WBC Urine 0-4 /hpf (0-5)
[2022-06-06] MEDS: sodium chloride 0.9% 1,000 ML 999 ML IV (12:17)
--- NOTE | 2022-06-06 12:51 | XR_ITS ---
WS: [id number] Exam: XR hip BI 2V wo/w pel [id number] Date/Time of Exam: 06/06/2022 12:51 PM Reason For Exam: fall AP view of the right hip shows no fracture or dislocation. [id number] DJD of the joint compartm ent. Normal soft tissues. Osteopenia. XR/XR hip BI 2V wo/w pel [id number] IMPRESSION: 1. [id number] DJD and osteopenia. No fracture or other significant findin g. AP view the left hip shows no acute fracture. Mild DJD of the joint compartment . Old fracture of the greater trochanter. Osteopenia. IMPRESSION: 1. Old displaced greater trochanteric fracture. No acute fracture seen. 2. Mild DJD. Osteopenia.
--- NOTE | 2022-06-06 12:52 | P.HP_ITS ---
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 Gilbert, chronic back pain, chronic spinal stenosis, BPH, who at baseline does not ambulate, uses a motorized scooter, stage III CHF, peripheral arterial disease, history of hemochromatosis who presents [facility] due to fatigue, malaise, shortness of breath, back pain, syncope, collapse, lower extremity edema. Patient tells me that for the last month he has not been taking his medication because he has not been feeling well, has been having increased fatigue, malaise, minimal shortness of breath at rest, has orthopnea, paroxysmal nocturnal dyspnea. Has been having acute on chronic back pain. He tells me that at baseline he does not ambulate, typically use a wheeled scooter, he tells me that there is issues with the battery for his wheeled scooter, and is not functioning properly. So he has been required to to transfer more. He tells me that on Thursday he fell forward, hit his head, and it took the ambulance to, get him up off the floor. He did not come to the emergency room. He has been having some hip pain and he felt his left hip pop. He has been having more back pain but he knows that he has spinal stenosis. He also has not been taking his medication for the last month because he feels that the medication was not making him feel well. He does have a history of CAD, he was told that he had four-vessel disease but was not deemed an appropriate candidate for CABG, denies any chest pain but has been experiencing increased significant shortness of breath. No fevers, chills, no cough. He does see Dr. Gilbert for his diabetic peripheral neuropathy, has had multiple amputations in the past, he does have some areas of cysts open sores diabetic ulcers on his foot that are covered. He tells me that he has been taking his insulin, his sugars have been reasonable recently. He tells me that a few days ago he was sitting up in his chair when he completely passed out, for a few minutes, when he awoken, this happened with a home health care nurse, he was crying, he did not remember the event, no slurring of his words, no facial droop, no focal weakness. This is never happened in the past before. He has never had a strok e. No significant carotid artery disease Review of Systems Const: Reports: fatigue and malaise; Denies: fever(s) Eyes: Denies: change in vision Card: Reports: edema, dyspnea on exertion and orthopnea; Denies: chest pain Resp: Reports: dyspnea; Denies: non-productive cough GI: Denies: abdominal pain, nausea or vomiting : Denies: flank pain or difficulty urinating Musc: Reports: back pain Skin/Breast: Reports: rash Neuro: Reports: numbness in extremities, weakness in extremities, difficulty walking, frequent falls and dizziness; Denies: headache(s), lack of coordination, Slurred speech present, difficulty communicating thoughts or seizure-like activity Endo: Denies: polyuria Lalo/Lymph: Reports: easy bruising Medications/Allergies Home Medications Medication Instructions Recorded Confirmed Last Taken Type Diabetic Shoes with 3 pairs of #1 ea 11/13/20 06/06/22 Unknown Rx molded inserts aspirin 81 mg tablet,delayed 81 mg PO DAILY 11/21/20 06/06/22 02/11/22 History release (Adult Low Dose Aspirin) clopidogrel 75 mg tablet (Plavix) 75 mg PO DAILY 11/21/20 06/06/22 02/11/22 History duloxetine 30 mg capsule,delayed 30 mg PO BID 11/21/20 06/06/22 02/12/22 History release finasteride 5 mg tablet 5 mg PO DAILY 11/21/20 06/06/22 06/05/22 History gabapentin 300 mg capsule 300 mg PO TID 11/21/20 06/06/22 06/05/22 History insulin aspart U-100 100 unit/mL See Rx Instructions SUBCUT TID 11/21/20 06/06/22 02/12/22 History (3 mL) subcutaneous pen (Novolog Flexpen U-100 Insulin aspart) nitroglycerin 0.4 mg sublingual 0.4 mg sublingual Q5M PRN Chest 11/21/20 06/06/22 Unknown History tablet Pain Toe Alignment Splint #1 ea 01/31/21 06/06/22 Unknown Rx cam boot short to the right #1 ea 05/22/21 06/06/22 Unknown Rx famotidine 40 mg tablet 40 mg PO DAILY 11/05/21 06/06/22 06/05/22 History insulin glargine 100 unit/mL (3 68 unit SUBCUT BID 11/13/21 06/06/22 02/12/22 History mL) subcutaneous pen (Lantus Solostar U-100 Insulin) flash glucose sensor (FreeStyle #1 ea 12/04/21 06/06/22 Unknown Rx Jostin 2 Sensor) flash glucose scanning reader #1 ea 12/24/21 06/06/22 Unknown Rx (FreeStyle Jostin 2 [place]) tamsulosin 0.4 mg capsule 0.4 mg PO BID #180 caps 01/31/22 06/06/22 06/05/22 Rx methocarbamol 750 mg tablet 750 mg PO TID #30 tabs 02/28/22 06/06/22 06/05/22 Rx Diabetic shoes with 3 inserts and #1 ea 03/11/22 06/06/22 Unknown Rx Bilateral Toe Fillers menthol 4 % topical gel (Biofreeze 1 applic topical Q8H PRN pain #89 03/12/22 06/06/22 Unknown Rx (menthol)) mL cholecalciferol (vitamin D3) 50 50 mcg PO DAILY 06/06/22 06/06/22 Unknown History mcg (2,000 unit) tablet meloxicam 7.5 mg tablet 7.5 mg PO DAILY 06/06/22 06/06/22 Unknown History Allergies Allergy/AdvReac Type Severity Reaction Status Date / Time No Known Allergies Allergy Verified 06/06/22 10:06 PFSH Acute PFSH: Medical History Adopted Arthritis BPH loc w urin obs/LUTS CHF (congestive heart failure), NYHA class III Coronary artery disease Hematospermia History of amputation of right great toe HTN (hypertension) Hyperlipidemia PAD (peripheral artery disease) Stroke Surgical History History of amputation of lesser toe of left foot History of appendectomy History of carpal tunnel release History of shoulder surgery Family History Father No problems noted. Mother No problems noted. Other Hypertension Social History Smoking and tobacco status: former smoker Alcohol intake: current Alcohol intake frequency: holidays/special occasions only Marital status: Current occupational status: retired History of recent travel: No Vitals/I&O/Wt Last Vital Signs Temp 97.7 F 06/06/22 07:47 Pulse 83 06/06/22 12:30 Resp 19 H 06/06/22 12:30 BP 141/70 06/06/22 12:30 Pulse Ox 96 06/06/22 12:30 O2 Del Method 06/06/22 07:47 06/05/22 06/06/22 06/06/22 22:59 06:59 14:59 Intake Total 299.7 / 299.7 Balance 299.7 / 299.7 Weight last 48 hrs Weight 104.326 kg Physical Exam Const: COMMON NORMALS: no acute distress and patient oriented x3 HENMT: COMMON NORMALS: normocephalic HEAD & SCALP: normocephalic Eye: COMMON NORMALS: Equal, round and reactive pupils present and EOMs intact bilaterally Neck/C-Spine: COMMON NORMALS: no JVD Resp: COMMON NORMALS: normal respiratory effort, No retractions, No use of accessory muscles and clear to auscultation bilaterally AUSCULTATION: clear to auscultation bilaterally Cardio: COMMON NORMALS: no JVD, regular rate, regular rhythm, S1 normal heart sound present and S2 normal heart sound present RATE: regular rate RHYTHM: regular rhythm HEART SOUNDS: S1 normal heart sound present and S2 normal heart sound present GI: COMMON NORMALS: Normal to inspection, nondistended, normoactive bowel sounds present, Soft to palpation, non-tender, No hepatosplenomegaly present, no masses and no bruits PALPATION: Yes Soft to palpation and Yes No hepatosplenomegaly present Extremity: COMMON NORMALS: capillary refill normal, no clubbing, cyanosis or edema, no calf tenderness and no pedal edema Neuro: COMMON NORMALS: patient oriented x3, CN's II-XII intact bilaterally, moves all extremities and no focal motor deficits Psych: COMMON NORMALS: mental status grossly normal Skin: OTHER: - Bilateral graf, multiple open sores, with surrounding cellulitis, large 1 x 1 cm, irregular borders -2+ pitting edema -As left third toe amputation -Right great toe amputation -Right second toe amputation -Multiple diabetic sores, wounds look clean and dry but to have erythematous borders Data : 06/06/22 08:05 06/06/22 08:05 A&P Assessment and plan (1) Syncope and collapse: Status: Acute (2) NSTEMI (non-ST elevated myocardial infarction): Status: Acute (3) CHF exacerbation: Status: Acute (4) Cellulitis: Status: Acute (5) Spinal stenosis: Status: Acute (6) Generalized weakness: Status: Acute (7) Falls: Status: Acute (8) Uncontrolled type 2 diabetes mellitus: Status: Acute Qualifiers: Glycemic state: with hyperglycemia Qualified Code(s): E11.65 - Type 2 diabetes mellitus with hyperglycemia (9) Hyperlipidemia: Status: Acute Qualifiers: Hyperlipidemia type: mixed hyperlipidemia Qualified Code(s): E78.2 - Mixed hyperlipidemia (10) Diabetic neuropathy: Status: Acute (11) Coronary artery disease: Status: Acute (12) CHF (congestive heart failure), NYHA class III: Status: Acute Qualifiers: Congestive heart failure type: unspecified Qualified Code(s): I50.9 - Heart failure, unspecified (13) HTN (hypertension): Status: Acute Qualifiers: Hypertension type: essential hypertension Qualified Code(s): I10 - Essential (primary) hypertension (14) PAD (peripheral artery disease): Status: Acute Plan Syncope and collapse -Reports he has not been taking his medications for the last month, does have a significant history of CAD Plan -Telemetry monitoring -Serial EKGs, serial troponins, monitor for chest pain -Cardiac echo, carotid artery ultrasound -Venous ultrasound for lower extremity edema -Continue aspirin, statin -Neurochecks, aspiration precautions, and stroke scale -DNR/DNI -Lovenox for DVT prophylaxis NSTEMI -As above Systolic CHF exacerbation, fluid overload -Fluid restrictions 1500 cc -Cardiac echo -Lasix 40 IV twice daily Falls, orthostatic hypotension -Likely related to severe spinal stenosis, and diabetic peripheral neuropathy -1.? No acute lumbar spine fracture identified. 2.? Severe central, bilateral subarticular recess and moderate foraminal stenosis at L4-5. 3.? Mild central and bilateral subarticular recess stenosis at L5-S1 and moderate foraminal stenosis. 4.? Mild central, bilateral foraminal subarticular recess stenosis at L3-4. -PT OT -Continue gabapentin Diabetic ulcers, bilateral lower extremity -Wound care -Augmentin, doxycycline Type 2 diabetes mellitus -Lantus 40 twice daily -Monitor on sliding scale Deconditioning, falls, as above Attestations Medical Necessity Statement*: Patient requires hospitalization inpatient, greater than 2 midnights, for syncope, collapse, NSTEMI, systolic CHF exacerbation, fall, orthostatic hypotension, diabetic ulcers Coding Level of Care Code Acute Launch Operator for [facility] Diagnoses Syncope and collapse R55 NSTEMI (non-ST elevated myocardial infarction) I21.4 CHF exacerbation I50.9 Cellulitis L03.90 Spinal stenosis M48.00 Generalized weakness R53.1 Falls W19.XXXA Uncontrolled type 2 diabetes mellitus E11.65 Glycemic state: with hyperglycemia Hyperlipidemia E78.2 Hyperlipidemia type: mixed hyperlipidemia Diabetic neuropathy E11.40 Coronary artery disease I25.10 CHF (congestive heart failure), NYHA class III I50.9 Congestive heart failure type: unspecified HTN (hypertension) I10 Hypertension type: essential hypertension PAD (peripheral artery disease) I73.9
[2022-06-06 13:21] LABS: Erythrocyte Sedimentation Rate 10 mm/hr (0-10)
[2022-06-06 13:39] LABS: C Reactive Protein 3.5 mg/L (0.0-4.9)
[2022-06-06 13:46] LABS: Procalcitonin 0.05 ng/mL (0-0.5)
--- NOTE | 2022-06-06 13:51 | ECG_ITS ---
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 Measurements Intervals [place] Rate: 77 P: 61 ME: 217 QRS: 106 QRSD: 146 T: -50 QT: 450 QTc: 511 Interpretive Statements SINUS RHYTHM WITH FIRST DEGREE AV BLOCK RIGHT AXIS DEVIATION [QRS AXIS > 100] RIGHT BUNDLE BRANCH BLOCK MODERATE T-WAVE ABNORMALITY, CONSIDER LATERAL ISCHEMIA MODERATE T-WAVE ABNORMALITY, CONSIDER INFERIOR ISCHEMIA Compared to ECG 06/06/2022 09:47:19 First degree AV block now present T-wave abnormality still present Possible ischemia still present Electronically Signed On 06-06-2022 17:44:19 CDT by Ruby Rojas M.D. [id number]
[2022-06-06 15:23] LABS: Troponin 5 6HR 27.91 ng/L (0-15)
[2022-06-06 15:53] LABS: Troponin 5 6HR Delta -3.09 ng/L (0-12)
--- NOTE | 2022-06-06 19:15 | USR_ITS ---
PROCEDURE INFORMATION: Exam: US Duplex Lower Extremity Veins, Bilateral Exam date and time: 06/06/2022 10:51 PM Age: 77 years old Clinical indication: Edema, localized; Lower extremity, bilateral; Additional info: Dvt TECHNIQUE: Imaging protocol: Real-time Duplex ultrasound of the bilateral extremities with 2-D mendoza scale, color Doppler flow and spectral waveform analysis with image documentation. Complete exam focused on the bilateral lower extremity veins. COMPARISON: MR foot RT wo/w con [id number] 02/06/2022 3:55 PM FINDINGS: Right deep veins: Unremarkable. The common femoral, femoral, proximal profunda femoral and popliteal veins are patent without thrombus. Normal Doppler waveforms. Normal compressibility and/or augmentation response. Right superficial veins: Saphenofemoral junction is patent without thrombus. Left deep veins: Unremarkable. The common femoral, femoral, proximal profunda femoral and popliteal veins are patent without thrombus. Normal Doppler waveforms. Normal compressibility and/or augmentation response. Left superficial veins: Saphenofemoral junction is patent without thrombus. Soft tissues: Unremarkable. US/CV venous duplex [facility] [id number] IMPRESSION: No evidence of deep vein thrombosis.
--- NOTE | 2022-06-06 19:15 | USR_ITS ---
PROCEDURE INFORMATION: Exam: US Duplex Bilateral Extracranial Arteries, Carotid Arteries Exam date and time: 06/06/2022 10:25 PM Age: 77 years old Clinical indication: Syncope and collapse TECHNIQUE: Imaging protocol: Real-time Duplex ultrasound scan of the bilateral carotid and vertebral arteries combining mendoza scale, color Doppler and spectral waveform analysis. Bilateral exam. Exam focused on the carotid arteries. COMPARISON: CT angio headneck* [id number] 03/12/2022 7:32 PM FINDINGS: Diffuse calcific plaques are seen within the visualized arteries of the neck. Right common carotid artery: Unremarkable. No occlusion or stenosis. Waveforms are normal. PSV 66.2 cm/s within the distal right common carotid artery. Right internal carotid artery: Unremarkable. No occlusion or stenosis. Waveforms are normal. PSV 59.5 cm/s for the proximal right internal carotid artery. Right ICA/CCA ratio: Within normal limits, 0.90. Right external carotid artery: No stenosis in the origin. Right vertebral artery: Unremarkable. Antegrade flow. Left common carotid artery: Unremarkable. No occlusion or stenosis. Waveforms are normal. PSV 123.5 cm/s for the distal CCA. Left internal carotid artery: Unremarkable. No occlusion or stenosis. Waveforms are normal. PSV 130.5 cm/s for the mid ICA. Left ICA/CCA ratio: Within normal limits, 1.06. Left external carotid artery: No stenosis in the origin. Left vertebral artery: Unremarkable. Antegrade flow. US/CV carotid duplex BI* [id number] IMPRESSION: No carotid arterial stenosis. REFERENCES: SRU CRITERIA. The degree of internal carotid artery stenosis is based on criteria defined by the Society of Radiologists in Ultrasound (SRU). Normal is no stenosis. Mild is less than 50% stenosis. Moderate is 50-69% stenosis. Severe is greater than 69% stenosis to near occlusion. Near occlusion is a markedly narrowed lumen. Total occlusion is no detectable patent lumen.
[2022-06-06] MEDS: amoxicillin-clav 875-125 mg Tablet 1 TAB PO (19:44)
[2022-06-06] MEDS: methocarbamol 750 mg Tablet PO (19:44)
[2022-06-06] MEDS: aspirin 81 mg EC Tablet PO (19:45)
[2022-06-06] MEDS: gabapentin 300 mg Capsule PO (19:45)
[2022-06-06] MEDS: tamsulosin 0.4 mg Capsule PO (19:45)
[2022-06-06] MEDS: duloxetine 30 mg Capsule PO (19:45)
[2022-06-06] MEDS: doxycycline 100 mg Tablet PO (19:45)
[2022-06-06] MEDS: famotidine 20 mg Tablet PO (19:45)
[2022-06-06] MEDS: clopidogrel 75 mg Tablet PO (19:46)
[2022-06-06] MEDS: enoxaparin 40 mg/0.4 mL Syringe SUBCUT (19:49)
[2022-06-06] MEDS: FUROsemide 10 mg/mL SDV 4mL 40 MG IVP (19:50)
[2022-06-06] MEDS: magnesium sulfate premix 4 GM/100 ML PREMIX IV (20:42)
[2022-06-06 22:33] LABS: Glucose Point of Care 222 mg/dL (70-110)
[2022-06-06] MEDS: insulin lispro 100 unit/1 mL SUBCUT (22:50)
[2022-06-06] MEDS: insulin glargine 100 units/1 mL 40 UNIT SUBCUT (22:50)
[2022-06-07] VITALS (8 sets, daily range): BP systolic 130–157; BP diastolic 65–86; PULSE 63–87; RESP 17; TEMP 36.3–36.7; O2SAT 92–96
[2022-06-07] MEDS: diphenhydrAMINE 25 mg Capsule PO ×2 (02:14→22:34)
[2022-06-07 05:58] LABS: Basophils # 0.1 10^3/uL (0.0-0.1); Eosinophils # 0.1 10^3/uL (0.0-0.8); Eosinophils % 1.3 %; Hematocrit 40.4 % (42.0-52.0); Hemoglobin 13.6 g/dL (11.7-16.6); Lymphocytes # 1.3 10^3/uL (0.8-4.8); Lymphocytes % 16.8 %; Mean Corpuscular HGB Conc 33.7 g/dL (30.0-36.0); Mean Corpuscular Hemoglobin 31.3 pg (28.0-34.0); Mean Corpuscular Volume 92.9 fl (80-94); Mean Platelet Volume 11.8 fL (7.4-10.4); Monocytes # 0.9 10^3/uL (0.2-0.9); Monocytes % 10.9 %; Neutrophils # 5.47 10^3/uL (1.8-7.7); Neutrophils % 69.6 %; Nucleated Red Blood Cells % 0 %; Platelet Count 140 10^3/cmm (130-400); Red Blood Count 4.35 10^6/uL (4.1-5.3); Red Cell Distribution Width 14.1 % (12.1-15.1); White Blood Count 7.9 10^3/uL (4.0-10.0)
[2022-06-07 06:18] LABS: Glucose Point of Care 120 mg/dL (70-110)
[2022-06-07 06:19] LABS: Alanine Aminotransferase 17 U/L (0-41); Albumin Level 3.5 g/dL (3.5-5.2); Alkaline Phosphatase 154 IU/L (40-130); Anion Gap 12.7 (5-19); Aspartate Amino Transferase 25 U/L (0-40); Blood Urea Nitrogen 17 mg/dL (8-23); Calcium 9.2 mg/dL (8.5-10.5); Carbon Dioxide 28 mmol/L (22-29); Chloride 102 mmol/L (98-107); Chol HDL Ratio 3.97 mg/dL (1.0-5.00); Cholesterol 127 mg/dL (0-200); Globulin 2.8 g/dL (1.3-4.6); Glucose 108 mg/dL (65-115); HDL Cholesterol 32 mg/dL (60-100); LDL Cholesterol Calculated 65 mg/dL (50-129); LDL HDL Ratio 2.03 RATIO (0.00-3.22); Magnesium 2.2 mg/dL (1.7-2.3); Osmolality Calculated 290 mOsm/kg (285-295); Phosphorus 3.9 mg/dL (2.5-4.5); Potassium 3.7 mmol/L (3.5-5.1); Sodium 139 mmol/L (136-145); Total Bilirubin 0.5 mg/dL (0.15-1.2); Total Protein 6.3 g/dL (6.6-8.7); Triglycerides 148 mg/dL (0-150)
[2022-06-07] MEDS: levothyroxine 25 mcg Tablet PO (06:32)
[2022-06-07] MEDS: FUROsemide 10 mg/mL SDV 4mL 40 MG IVP ×2 (06:33→20:13)
[2022-06-07 06:45] LABS: Estmated Average Glucose 171; Hemoglobin A1C 7.6 % (4.0-6.0)
[2022-06-07] MEDS: cholecalciferol (vitamin D3) 1,000 unit Tablet 2000 UNIT PO (08:58)
[2022-06-07] MEDS: doxycycline 100 mg Tablet PO ×2 (08:58→16:31)
[2022-06-07] MEDS: tamsulosin 0.4 mg Capsule PO ×2 (08:58→16:32)
[2022-06-07] MEDS: duloxetine 30 mg Capsule PO ×2 (08:58→16:28)
[2022-06-07] MEDS: finasteride 5 mg Tablet PO (08:58)
[2022-06-07] MEDS: clopidogrel 75 mg Tablet PO (08:58)
[2022-06-07] MEDS: aspirin 81 mg EC Tablet PO (08:58)
[2022-06-07] MEDS: amoxicillin-clav 875-125 mg Tablet 1 TAB PO ×2 (08:58→16:28)
[2022-06-07] MEDS: metOLazone 5 MG Tablet PO (08:58)
[2022-06-07] MEDS: methocarbamol 750 mg Tablet PO ×3 (08:58→20:11)
[2022-06-07] MEDS: gabapentin 300 mg Capsule PO ×3 (08:58→20:11)
[2022-06-07] MEDS: famotidine 20 mg Tablet PO ×2 (08:58→16:28)
[2022-06-07] MEDS: insulin glargine 100 units/1 mL 40 UNIT SUBCUT ×2 (09:01→18:39)
[2022-06-07 13:07] LABS: Glucose Point of Care 135 mg/dL (70-110)
--- NOTE | 2022-06-07 13:30 | PM.PN ---
Subjective Subjective: Patient was seen this morning, daughter at bedside, he tells me he feels better, shortness of breath has improved, no chest pain, no palpitations, no recurrent syncopal episodes Vitals/I&O/Wt Last Vital Signs Temp 98.0 F 06/07/22 12:00 Pulse 74 06/07/22 12:00 Resp 17 06/07/22 12:00 BP 130/71 06/07/22 12:00 Pulse Ox 92 06/07/22 12:00 O2 Del Method 06/07/22 12:00 06/06/22 06/07/22 06/07/22 22:59 06:59 14:59 Intake Total 800.3 / 1100.0 1000 / 2100.0 770 / 770 Output Total 1300 / 1300 1650 / 2950 475 / 475 Balance -499.7 / -200.0 -650 / -850.0 295 / 295 Weight last 48 hrs Weight 104.326 kg Physical Exam Const: COMMON NORMALS: no acute distress and patient oriented x3 Resp: COMMON NORMALS: normal respiratory effort, No retractions, No use of accessory muscles and clear to auscultation bilaterally AUSCULTATION: clear to auscultation bilaterally Cardio: COMMON NORMALS: regular rate, regular rhythm, S1 normal heart sound present and S2 normal heart sound present RATE: regular rate RHYTHM: regular rhythm HEART SOUNDS: S1 normal heart sound present and S2 normal heart sound present GI: COMMON NORMALS: Normal to inspection, nondistended, normoactive bowel sounds present, Soft to palpation and non-tender PALPATION: Yes Soft to palpation Extremity: NARRATIVE EXTREMITY EXAM: 1+ edema bilateral extremity Neuro: COMMON NORMALS: patient oriented x3 Psych: COMMON NORMALS: mental status grossly normal Data : 06/07/22 04:27 06/07/22 04:27 Micro: Microbiology 06/06/22 13:53 Blood Culture - Preliminary Blood SPECIMEN COLLECTED 06/06/22 13:50 Blood Culture - Preliminary Blood SPECIMEN COLLECTED A&P Assessment and plan (1) Syncope and collapse: Status: Acute (2) NSTEMI (non-ST elevated myocardial infarction): Status: Acute (3) CHF exacerbation: Status: Acute (4) Cellulitis: Status: Acute (5) Spinal stenosis: Status: Acute (6) Generalized weakness: Status: Acute (7) Falls: Status: Acute (8) Uncontrolled type 2 diabetes mellitus: Status: Acute Qualifiers: Glycemic state: with hyperglycemia Qualified Code(s): E11.65 - Type 2 diabetes mellitus with hyperglycemia (9) Hyperlipidemia: Status: Acute Qualifiers: Hyperlipidemia type: mixed hyperlipidemia Qualified Code(s): E78.2 - Mixed hyperlipidemia (10) Diabetic neuropathy: Status: Acute (11) Coronary artery disease: Status: Acute (12) CHF (congestive heart failure), NYHA class III: Status: Acute Qualifiers: Congestive heart failure type: unspecified Qualified Code(s): I50.9 - Heart failure, unspecified (13) HTN (hypertension): Status: Acute Qualifiers: Hypertension type: essential hypertension Qualified Code(s): I10 - Essential (primary) hypertension (14) PAD (peripheral artery disease): Status: Acute Plan Syncope and collapse -Reports he has not been taking his medications for the last month, does have a significant history of CAD Plan -Telemetry monitoring -Serial EKGs no acute ST-T wave changes, serial troponins no significant delta troponin, monitor for chest pain -Cardiac echo, carotid artery ultrasound within normal limits -Venous ultrasound negative for DVT -Continue aspirin, statin -Neurochecks, aspiration precautions, and stroke scale -DNR/DNI -Lovenox for DVT prophylaxis NSTEMI -As above Systolic CHF exacerbation, fluid overload -Fluid restrictions 1500 cc -Cardiac echo -Lasix 40 IV twice daily Falls, orthostatic hypotension -Likely related to severe spinal stenosis, and diabetic peripheral neuropathy -1.? No acute lumbar spine fracture identified. 2.? Severe central, bilateral subarticular recess and moderate foraminal stenosis at L4-5. 3.? Mild central and bilateral subarticular recess stenosis at L5-S1 and moderate foraminal stenosis. 4.? Mild central, bilateral foraminal subarticular recess stenosis at L3-4. 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 Environment Manager for [facility] Fwd Diagnoses Syncope and collapse R55 NSTEMI (non-ST elevated myocardial infarction) I21.4 CHF exacerbation I50.9 Cellulitis L03.90 Spinal stenosis M48.00 Generalized weakness R53.1 Falls [id number] Uncontrolled type 2 diabetes mellitus E11.65 Glycemic state: with hyperglycemia Hyperlipidemia E78.2 Hyperlipidemia type: mixed hyperlipidemia Diabetic neuropathy E11.40 Coronary artery disease I25.10 CHF (congestive heart failure), NYHA class III I50.9 Congestive heart failure type: unspecified HTN (hypertension) I10 Hypertension type: essential hypertension PAD (peripheral artery disease) I73.9
[2022-06-07] MEDS: acetaminophen 325 mg Tablet 650 MG PO (16:10)
[2022-06-07 16:44] LABS: Glucose Point of Care 170 mg/dL (70-110)
[2022-06-07] MEDS: insulin lispro 100 unit/1 mL SUBCUT (18:39)
--- NOTE | 2022-06-07 19:15 | USCV_ITS ---
Immanuel Dumont Age: 77 Gender: M : 1945 Exam Date: 06/07/2022 12:11 Ordering Phys: Adonay Chacon MD Technologist: Macario Toussaint [place] [facility] [place]: chest pain BP: 112 / 68 HR: 65 Rhythm: Sinus Technical Quality: Poor MEASUREMENTS (Male / Female) Normal Values 2D ECHO LV Diastolic Diameter PLAX 4.0 cm 4.2 - 5.9 / 3.9 - 5.3 cm LV Systolic Diameter PLAX 2.7 cm IVS Diastolic Thickness 1.1 cm 0.6 - 1.0 / 0.6 - 0.9 cm IVS Systolic Thickness 1.7 cm LVPW Diastolic Thickness 1.3 cm 0.6 - 1.0 / 0.6 - 0.9 cm LVPW Systolic Thickness 1.4 cm LVOT Diameter 2.0 cm LV Ejection Fraction 2D Teich 59.8 % LV Ejection Fraction MOD 2C 65.3 % LV Ejection Fraction 2C AL 65.2 % LA Diameter 4.7 cm Aorta at Sinotubular Diameter 2.6 cm M-MODE Aortic Annulus Diameter 3.2 cm LA Ao Ratio MM 1.5 MV E Point Septal Separation 0.8 cm DOPPLER AV Peak Velocity 162.7 cm/s LVOT Peak Velocity 87.0 cm/s AV Area Cont Eq vti 2.2 cm squared AV Area Cont Eq pk 1.7 cm squared MV Area PHT 5.0 cm squared Mitral E to A Ratio 1.0 MV E' Velocity 49.0 cm/s Mitral E to MV E' Ratio 12.2 Mitral E to LV E' Lateral Ratio 10.5 Mitral E to LV E' Septal Ratio 14.6 TR Peak Velocity 226.3 cm/s TR Peak Gradient 20.5 mmHg TV Peak E Velocity 104.0 cm/s Right Atrial Pressure 3.0 mmHg Pulmonary Artery Systolic Pressu 23.5 mmHg PV Peak Velocity 146.0 cm/s FINDINGS Left Ventricle The ventricle is poorly visualized. The left ventricular function is probably lower limit of normal. No obvious wall motion disturbances. Ejection fraction 55%. Left ventricular size is likely normal. Diastolic function not evaluated. Right Ventricle Normal right ventricular size and systolic function. Normal right ventricular systolic pressure. Right Atrium Right atrium not well visualized. Left Atrium Left atrium not well visualized. Mitral Valve Valve is poorly evaluated. No obvious mitral regurgitation. Aortic Valve The valve is not well seen. No obvious stenosis or regurgitation. Tricuspid Valve Poorly seen. Pulmonic Valve Poorly seen. Pericardium Normal pericardium without effusion. Aorta Normal ascending aorta dimension. IVC Inferior vena cava not visualized. CONCLUSIONS The ventricle is poorly visualized. The left ventricular function is probably lower limit of normal. No obvious wall motion disturbances. Ejection fraction 55%. Left ventricular size is likely normal. Diastolic function not evaluated. Dr. Sergio Christine MD (Electronically Signed) Final Date: 08 June 2022 10:01 S
[2022-06-07 20:09] LABS: Glucose Point of Care 117 mg/dL (70-110)
[2022-06-07] MEDS: enoxaparin 40 mg/0.4 mL Syringe SUBCUT (20:16)
[2022-06-08] VITALS (9 sets, daily range): BP systolic 102–143; BP diastolic 57–79; PULSE 80–95; RESP 17–24; TEMP 36.3–36.6; O2SAT 91–95
[2022-06-08 04:56] LABS: Basophils # 0.1 10^3/uL (0.0-0.1); Eosinophils # 0.1 10^3/uL (0.0-0.8); Hematocrit 42.5 % (42.0-52.0); Hemoglobin 14.5 g/dL (11.7-16.6); Lymphocytes # 1.3 10^3/uL (0.8-4.8); Mean Corpuscular HGB Conc 34.1 g/dL (30.0-36.0); Mean Platelet Volume 10.7 fL (7.4-10.4); Monocytes # 0.9 10^3/uL (0.2-0.9); Neutrophils # 5.38 10^3/uL (1.8-7.7); Neutrophils % 69.7 %; Nucleated Red Blood Cells % 0 %; Platelet Count 152 10^3/cmm (130-400); Red Blood Count 4.67 10^6/uL (4.1-5.3); Red Cell Distribution Width 13.7 % (12.1-15.1); White Blood Count 7.7 10^3/uL (4.0-10.0)
[2022-06-08 05:37] LABS: Alanine Aminotransferase 17 U/L (0-41); Albumin Level 3.6 g/dL (3.5-5.2); Alkaline Phosphatase 146 IU/L (40-130); Anion Gap 13.4 (5-19); Aspartate Amino Transferase 22 U/L (0-40); Blood Urea Nitrogen 18 mg/dL (8-23); Calcium 9.6 mg/dL (8.5-10.5); Carbon Dioxide 31 mmol/L (22-29); Chloride 98 mmol/L (98-107); Globulin 3.2 g/dL (1.3-4.6); Glucose 74 mg/dL (65-115); Magnesium 1.7 mg/dL (1.7-2.3); NT Pro B Type Natriuretic Pept 1133 pg/mL (0-450); Osmolality Calculated 289 mOsm/kg (285-295); Phosphorus 5.3 mg/dL (2.5-4.5); Potassium 3.4 mmol/L (3.5-5.1); Sodium 139 mmol/L (136-145); Total Bilirubin 0.7 mg/dL (0.15-1.2); Total Protein 6.8 g/dL (6.6-8.7)
[2022-06-08 06:28] LABS: Glucose Point of Care 64 mg/dL (70-110)
[2022-06-08] MEDS: levothyroxine 25 mcg Tablet PO (06:28)
[2022-06-08] MEDS: FUROsemide 10 mg/mL SDV 4mL 40 MG IVP ×2 (06:29→20:04)
[2022-06-08 07:49] LABS: Glucose Point of Care 109 mg/dL (70-110)
[2022-06-08] MEDS: amoxicillin-clav 875-125 mg Tablet 1 TAB PO ×2 (09:05→18:10)
[2022-06-08] MEDS: aspirin 81 mg EC Tablet PO (09:05)
[2022-06-08] MEDS: finasteride 5 mg Tablet PO (09:05)
[2022-06-08] MEDS: gabapentin 300 mg Capsule PO ×3 (09:05→20:04)
[2022-06-08] MEDS: duloxetine 30 mg Capsule PO ×2 (09:05→18:11)
[2022-06-08] MEDS: potassium chloride ER 20 mEq Tablet 40 MEQ PO (09:05)
[2022-06-08] MEDS: cholecalciferol (vitamin D3) 1,000 unit Tablet 2000 UNIT PO (09:05)
[2022-06-08] MEDS: methocarbamol 750 mg Tablet PO ×3 (09:06→20:04)
[2022-06-08] MEDS: metOLazone 5 MG Tablet PO (09:06)
[2022-06-08] MEDS: tamsulosin 0.4 mg Capsule PO ×2 (09:06→18:10)
[2022-06-08] MEDS: famotidine 20 mg Tablet PO ×2 (09:06→18:10)
[2022-06-08] MEDS: doxycycline 100 mg Tablet PO ×2 (09:06→18:11)
[2022-06-08] MEDS: clopidogrel 75 mg Tablet PO (09:06)
--- NOTE | 2022-06-08 10:06 | PC.NURSE ---
MD at bedside verbal orders to change lantus BID from 40 units Sub Q to 30 units BID subq, due to pt trending lower blood sugar levels.
[2022-06-08] MEDS: insulin glargine 100 units/1 mL 30 UNIT SUBCUT (10:27)
[2022-06-08] MEDS: dextrose 50% syringe 50 mL IVP (12:02)
[2022-06-08 12:09] LABS: Glucose Point of Care 46 mg/dL (70-110)
[2022-06-08 12:09] LABS: Glucose Point of Care 59 mg/dL (70-110)
[2022-06-08 12:22] LABS: Glucose Point of Care 161 mg/dL (70-110)
[2022-06-08 13:30] LABS: Glucose Point of Care 174 mg/dL (70-110)
--- NOTE | 2022-06-08 14:27 | P.PN_ITS ---
Subjective Subjective: Patient was seen this morning and later on in the afternoon, -This morning he tells me he is feeling well, still with some degree of shortness of breath, chest pain, palpitations, lightheadedness, dizziness -Patient did have a low blood sugar this morning in the 50s to 60s, he is adamant that he uses Lantus 68 units twice a day, he is only received 40 units twice a day, I decreased his dose to 30 units, -Later on in the morning his blood sugars were in the 50s to 60s, he was a bit drowsy, he received an amp of D50, alert oriented x3 after that, blood sugar is in the 160s -I have decreased his Lantus to 15 units twice a day continue to monitor blood sugars hourly, he is alert oriented x3, joking with me, they wants an ice cream bar Vitals/I&O/Wt Last Vital Signs Temp 97.9 F 06/08/22 08:07 Pulse 80 06/08/22 08:07 Resp 18 06/08/22 08:07 BP 129/74 06/08/22 08:07 Pulse Ox 93 06/08/22 08:07 O2 Del Method 06/08/22 08:07 06/07/22 06/08/22 06/08/22 22:59 06:59 14:59 Intake Total 240 / 1010 240 / 1250 360 / 360 Output Total 2375 / 2850 Balance 240 / 535 -2135 / -1600 360 / 360 Physical Exam Const: COMMON NORMALS: no acute distress and patient oriented x3 Resp: COMMON NORMALS: normal respiratory effort, No retractions, No use of accessory muscles and clear to auscultation bilaterally AUSCULTATION: clear to auscultation bilaterally Cardio: COMMON NORMALS: regular rate, regular rhythm, S1 normal heart sound present and S2 normal heart sound present RATE: regular rate RHYTHM: regular rhythm HEART SOUNDS: S1 normal heart sound present and S2 normal heart sound present GI: COMMON NORMALS: Normal to inspection, nondistended, normoactive bowel sounds present, Soft to palpation, non-tender and No hepatosplenomegaly present PALPATION: Yes Soft to palpation and Yes No hepatosplenomegaly present Extremity: COMMON NORMALS: no pedal edema Neuro: COMMON NORMALS: patient oriented x3 Psych: COMMON NORMALS: mental status grossly normal Data : 06/08/22 04:45 06/08/22 04:45 Micro: Microbiology 06/07/22 04:30 MRSA Culture - Final Nose 06/06/22 13:53 Blood Culture - Preliminary Blood NEGATIVE TO DATE 06/06/22 13:50 Blood Culture - Preliminary Blood NEGATIVE TO DATE A&P Assessment and plan (1) Syncope and collapse: Status: Acute (2) NSTEMI (non-ST elevated myocardial infarction): Status: Acute (3) CHF exacerbation: Status: Acute (4) Cellulitis: Status: Acute (5) Spinal stenosis: Status: Acute (6) Generalized weakness: Status: Acute (7) Falls: Status: Acute (8) Uncontrolled type 2 diabetes mellitus: Status: Acute Qualifiers: Glycemic state: with hyperglycemia Qualified Code(s): E11.65 - Type 2 diabetes mellitus with hyperglycemia (9) Hyperlipidemia: Status: Acute Qualifiers: Hyperlipidemia type: mixed hyperlipidemia Qualified Code(s): E78.2 - Mixed hyperlipidemia (10) Diabetic neuropathy: Status: Acute (11) Coronary artery disease: Status: Acute (12) CHF (congestive heart failure), NYHA class III: Status: Acute Qualifiers: Congestive heart failure type: unspecified Qualified Code(s): I50.9 - Heart failure, unspecified (13) HTN (hypertension): Status: Acute Qualifiers: Hypertension type: essential hypertension Qualified Code(s): I10 - Essential (primary) hypertension (14) PAD (peripheral artery disease): Status: Acute Plan Syncope and collapse -Reports he has not been taking his medications for the last month, does have a significant history of CAD -Potentially related to hypoglycemia? Possibly giving himself too much insulin at home? As even 30 of Lantus twice daily has been causing hypoglycemic episodes and he reports that he takes 68 units twice a day Plan -Telemetry monitoring -Serial EKGs no acute ST-T wave changes, serial troponins no significant delta troponin, monitor for chest pain -Cardiac echo within normal limits, carotid artery ultrasound within normal limits -Venous ultrasound negative for DVT -Continue aspirin, statin -Neurochecks, aspiration precautions, and stroke scale -DNR/DNI -Lovenox for DVT prophylaxis NSTEMI -History of CAD, status post stenting, was not deemed a good surgical candidate for triple bypass in the past -6-hour troponin 27.9, delta -3 -No chest pain complaints -Cardiac echo -The ventricle is poorly visualized.? The left ventricular ?function is probably lower limit of normal.? No obvious wall ?motion disturbances.? Ejection fraction 55%.? Left ventricular ?size is likely normal.? Diastolic function not evaluated. -At this point he does not need stress testing, needs optimization from CHF, blood sugars, can follow-up with cardiology as outpatient Systolic CHF exacerbation, fluid overload -Fluid restrictions 1500 cc -Lasix 40 IV twice daily, 1 dose of Lasix today Falls, orthostatic hypotension -Likely related to severe spinal stenosis, and diabetic peripheral neuropathy -1.? No acute lumbar spine fracture identified. 2.? Severe central, bilateral subarticular recess and moderate foraminal stenosis at L4-5. 3.? Mild central and bilateral subarticular recess stenosis at L5-S1 and moderate foraminal stenosis. 4.? Mild central, bilateral foraminal subarticular recess stenosis at L3-4. 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 [facility] Fwd Diagnoses Syncope and collapse R55 NSTEMI (non-ST elevated myocardial infarction) I21.4 CHF exacerbation I50.9 Cellulitis L03.90 Spinal stenosis M48.00 Generalized weakness R53.1 Falls [id number] Uncontrolled type 2 diabetes mellitus E11.65 Glycemic state: with hyperglycemia Hyperlipidemia E78.2 Hyperlipidemia type: mixed hyperlipidemia Diabetic neuropathy E11.40 Coronary artery disease I25.10 CHF (congestive heart failure), NYHA class III I50.9 Congestive heart failure type: unspecified HTN (hypertension) I10 Hypertension type: essential hypertension PAD (peripheral artery disease) I73.9
[2022-06-08 15:06] LABS: Glucose Point of Care 207 mg/dL (70-110)
[2022-06-08 16:42] LABS: Glucose Point of Care 230 mg/dL (70-110)
[2022-06-08] MEDS: insulin lispro 100 unit/1 mL SUBCUT (18:11)
[2022-06-08] MEDS: insulin glargine 100 units/1 mL 15 UNIT SUBCUT (18:11)
[2022-06-08] MEDS: enoxaparin 40 mg/0.4 mL Syringe SUBCUT (20:03)
[2022-06-08 20:29] LABS: Glucose Point of Care 255 mg/dL (70-110)
[2022-06-08] MEDS: diphenhydrAMINE 25 mg Capsule PO (21:56)
[2022-06-09] VITALS (10 sets, daily range): BP systolic 116–137; BP diastolic 68–79; PULSE 93–100; RESP 16–20; TEMP 36.5–37.2; O2SAT 88–93
[2022-06-09 04:16] LABS: Glucose Point of Care 218 mg/dL (70-110)
[2022-06-09 04:47] LABS: Basophils # 0.1 10^3/uL (0.0-0.1); Basophils % 0.7 %; Eosinophils # 0.1 10^3/uL (0.0-0.8); Eosinophils % 0.7 %; Hematocrit 45.8 % (42.0-52.0); Hemoglobin 15.4 g/dL (11.7-16.6); Lymphocytes # 0.4 10^3/uL (0.8-4.8); Lymphocytes % 4.5 %; Mean Corpuscular HGB Conc 33.6 g/dL (30.0-36.0); Mean Corpuscular Hemoglobin 30.4 pg (28.0-34.0); Mean Corpuscular Volume 90.5 fl (80-94); Mean Platelet Volume 10.9 fL (7.4-10.4); Monocytes % 11.6 %; Neutrophils # 6.91 10^3/uL (1.8-7.7); Neutrophils % 82.1 %; Nucleated Red Blood Cells % 0 %; Platelet Count 156 10^3/cmm (130-400); Red Blood Count 5.06 10^6/uL (4.1-5.3); Red Cell Distribution Width 13.6 % (12.1-15.1); White Blood Count 8.4 10^3/uL (4.0-10.0)
[2022-06-09 05:21] LABS: Alanine Aminotransferase 20 U/L (0-41); Albumin Level 3.5 g/dL (3.5-5.2); Alkaline Phosphatase 191 IU/L (40-130); Anion Gap 13.6 (5-19); Aspartate Amino Transferase 23 U/L (0-40); Blood Urea Nitrogen 20 mg/dL (8-23); Carbon Dioxide 32 mmol/L (22-29); Chloride 92 mmol/L (98-107); Globulin 3.5 g/dL (1.3-4.6); Glucose 194 mg/dL (65-115); Magnesium 1.5 mg/dL (1.7-2.3); NT Pro B Type Natriuretic Pept 1128 pg/mL (0-450); Osmolality Calculated 286 mOsm/kg (285-295); Phosphorus 4.1 mg/dL (2.5-4.5); Potassium 3.6 mmol/L (3.5-5.1); Sodium 134 mmol/L (136-145); Total Bilirubin 0.8 mg/dL (0.15-1.2)
[2022-06-09] MEDS: levothyroxine 25 mcg Tablet PO (05:30)
[2022-06-09 07:23] LABS: Glucose Point of Care 207 mg/dL (70-110)
[2022-06-09 08:50] LABS: Glucose Point of Care 189 mg/dL (70-110)
[2022-06-09] MEDS: methocarbamol 750 mg Tablet PO (09:28)
[2022-06-09] MEDS: famotidine 20 mg Tablet PO ×2 (09:28→17:44)
[2022-06-09] MEDS: finasteride 5 mg Tablet PO (09:28)
[2022-06-09] MEDS: amoxicillin-clav 875-125 mg Tablet 1 TAB PO ×2 (09:28→17:44)
[2022-06-09] MEDS: clopidogrel 75 mg Tablet PO (09:28)
[2022-06-09] MEDS: tamsulosin 0.4 mg Capsule PO ×2 (09:28→17:44)
[2022-06-09] MEDS: FUROsemide 10 mg/mL SDV 4mL 40 MG IVP (09:28)
[2022-06-09] MEDS: aspirin 81 mg EC Tablet PO (09:28)
[2022-06-09] MEDS: cholecalciferol (vitamin D3) 1,000 unit Tablet 2000 UNIT PO (09:28)
[2022-06-09] MEDS: doxycycline 100 mg Tablet PO ×2 (09:28→17:44)
[2022-06-09] MEDS: duloxetine 30 mg Capsule PO ×2 (09:28→17:44)
[2022-06-09] MEDS: gabapentin 300 mg Capsule PO ×3 (09:28→20:16)
[2022-06-09] MEDS: insulin lispro 100 unit/1 mL SUBCUT ×3 (09:29→17:45)
[2022-06-09] MEDS: insulin glargine 100 units/1 mL 15 UNIT SUBCUT ×2 (09:29→17:45)
--- NOTE | 2022-06-09 09:38 | PC.SOCIAL ---
IMM update IMM updated with patient. Verbalized an understanding. Copy Pg 2 provided. Initialled, dated, timed, and placed in chart.
--- NOTE | 2022-06-09 11:32 | PM.PN ---
Subjective Subjective: Gets lightheaded when he is standing up or even sitting up. Noted to be presyncopal or syncopal (lightheaded and fell backwards sitting up in bed with family). Symptoms seem to be so severe that he is orthostatic even while sitting up. Currently while reclined he states he is doing all right. Certainly is concerned about lightheadedness anytime he is upright. Discussed with him to lie down immediately in case he is getting lightheaded while upright to prevent syncope. Vitals/I&O/Wt Last Vital Signs Temp 98.2 F 06/09/22 08:00 Pulse 95 06/09/22 08:00 Resp 17 06/09/22 08:00 BP 116/68 06/09/22 08:00 Pulse Ox 93 06/09/22 08:00 O2 Del Method 06/09/22 08:00 06/08/22 06/09/22 06/09/22 22:59 06:59 14:59 Intake Total 480 / 1080 240 / 240 Output Total 1925 / 1925 325 / 2250 Balance -1445 / -845 -325 / -1170 240 / 240 Physical Exam Narrative: Sleeping, wakes up easily. Const: COMMON NORMALS: patient oriented x3 and alert GENERAL APPEARANCE: cooperative ORIENTATION/CONSCIOUSNESS: Yes awake HENMT: COMMON NORMALS: oropharynx normal Neck/C-Spine: COMMON NORMALS: no JVD Resp: COMMON NORMALS: normal respiratory effort and clear to auscultation bilaterally AUSCULTATION: clear to auscultation bilaterally Cardio: COMMON NORMALS: no JVD, regular rhythm, S1 normal heart sound present, S2 normal heart sound present and No murmurs present (Cardio) RHYTHM: regular rhythm HEART SOUNDS: S1 normal heart sound present and S2 normal heart sound present GI: COMMON NORMALS: Normal to inspection, nondistended, normoactive bowel sounds present, Soft to palpation and non-tender PALPATION: Yes Soft to palpation Extremity: COMMON NORMALS: no joint enlargement and no pedal edema Neuro: COMMON NORMALS: patient oriented x3 and moves all extremities SENSORIUM/ORIENTATION: Yes alert Data : 06/09/22 04:25 06/09/22 04:25 A&P Assessment and plan (1) Syncope and collapse: Very orthostatic. Discussed with him and his daughter starting midodrine. Start 5 mg 3 times daily. Monitor blood pressure. Maintain orthostatic precautions. Discussed with him regarding Robaxin that he seems to be taking scheduled 3 times daily. He was not sure about it, but discussing with his daughter he does take it scheduled. He lives alone, but she does not think that he is taking more than prescribed. Discussed that this medication may contribute to lightheadedness as well. Discussed reducing dose. Decrease to 500 3 times daily for now. Reduce Lasix dose to 40 mg every 24 hours. Replace hypomagnesemia. Stress test after discharge. Status: Acute (2) NSTEMI (non-ST elevated myocardial infarction): Status: Acute (3) CHF exacerbation: Status: Acute (4) Cellulitis: Status: Acute (5) Spinal stenosis: Status: Acute (6) Generalized weakness: Status: Acute (7) Falls: Status: Acute (8) Uncontrolled type 2 diabetes mellitus: Status: Acute Qualifiers: Glycemic state: with hyperglycemia Qualified Code(s): E11.65 - Type 2 diabetes mellitus with hyperglycemia (9) Hyperlipidemia: Status: Acute Qualifiers: Hyperlipidemia type: mixed hyperlipidemia Qualified Code(s): E78.2 - Mixed hyperlipidemia (10) Diabetic neuropathy: Status: Acute (11) Coronary artery disease: Status: Acute (12) CHF (congestive heart failure), NYHA class III: Status: Acute Qualifiers: Congestive heart failure type: unspecified Qualified Code(s): I50.9 - Heart failure, unspecified (13) HTN (hypertension): Status: Acute Qualifiers: Hypertension type: essential hypertension Qualified Code(s): I10 - Essential (primary) hypertension (14) PAD (peripheral artery disease): Status: Acute Plan Systolic CHF exacerbation, fluid overload -Fluid restrictions 1500 cc -Reduce Lasix 40 IV daily Diabetic ulcers, bilateral lower extremity -Wound care -Augmentin, doxycycline Type 2 diabetes mellitus with diabetic neuropathy With episodes of hypoglycemia. Glucose has improved. Continue decrease Lantus dose to 15 units twice daily. Low-dose sliding scale. Deconditioning, falls, as above Attestations Medical Necessity Statement*: Continue admission for assessment management of syncopal episodes, including severe orthostatic hypotension with syncope while sitting up, CHF exacerbation, disposition planning. Coding Level of Care Code Acute Bioinformatics Software Engineer for [facility] Fwgilberto Diagnoses Syncope and collapse R55 NSTEMI (non-ST elevated myocardial infarction) I21.4 CHF exacerbation I50.9 Cellulitis L03.90 Spinal stenosis M48.00 Generalized weakness R53.1 Falls [id number] Uncontrolled type 2 diabetes mellitus E11.65 Glycemic state: with hyperglycemia Hyperlipidemia E78.2 Hyperlipidemia type: mixed hyperlipidemia Diabetic neuropathy E11.40 Coronary artery disease I25.10 CHF (congestive heart failure), NYHA class III I50.9 Congestive heart failure type: unspecified HTN (hypertension) I10 Hypertension type: essential hypertension PAD (peripheral artery disease) I73.9
[2022-06-09 12:01] LABS: Glucose Point of Care 242 mg/dL (70-110)
[2022-06-09] MEDS: magnesium sulfate premix 2 GM/50 ML PIGGYBACK IV (12:31)
[2022-06-09] MEDS: midodrine 5 mg TABLET PO ×3 (12:31→20:16)
[2022-06-09 17:14] LABS: Glucose Point of Care 280 mg/dL (70-110)
[2022-06-09 17:15] LABS: Glucose Point of Care 252 mg/dL (70-110)
[2022-06-09] MEDS: acetaminophen 325 mg Tablet 650 MG PO (17:43)
[2022-06-09] MEDS: methocarbamol 500 mg Tablet PO ×2 (17:44→20:16)
[2022-06-09] MEDS: enoxaparin 40 mg/0.4 mL Syringe SUBCUT (20:16)
[2022-06-09 21:27] LABS: Glucose Point of Care 239 mg/dL (70-110)
[2022-06-10] VITALS (9 sets, daily range): BP systolic 134–155; BP diastolic 67–79; PULSE 93–102; RESP 15–20; TEMP 37.1–38.4; O2SAT 86–94
[2022-06-10 05:33] LABS: Basophils # 0.1 10^3/uL (0.0-0.1); Basophils % 0.6 %; Eosinophils % 0.1 %; Hematocrit 44.8 % (42.0-52.0); Hemoglobin 15.1 g/dL (11.7-16.6); Lymphocytes # 0.8 10^3/uL (0.8-4.8); Lymphocytes % 8.9 %; Mean Corpuscular HGB Conc 33.7 g/dL (30.0-36.0); Mean Corpuscular Hemoglobin 30.6 pg (28.0-34.0); Mean Corpuscular Volume 90.7 fl (80-94); Mean Platelet Volume 10.9 fL (7.4-10.4); Monocytes # 1.5 10^3/uL (0.2-0.9); Monocytes % 17.8 %; Neutrophils # 6.25 10^3/uL (1.8-7.7); Neutrophils % 72.1 %; Nucleated Red Blood Cells % 0 %; Platelet Count 138 10^3/cmm (130-400); Red Blood Count 4.94 10^6/uL (4.1-5.3); White Blood Count 8.7 10^3/uL (4.0-10.0)
[2022-06-10] MEDS: levothyroxine 25 mcg Tablet PO (05:33)
[2022-06-10 06:05] LABS: Alanine Aminotransferase 18 U/L (0-41); Albumin Level 3.2 g/dL (3.5-5.2); Alkaline Phosphatase 163 IU/L (40-130); Anion Gap 13.5 (5-19); Aspartate Amino Transferase 29 U/L (0-40); Blood Urea Nitrogen 30 mg/dL (8-23); Calcium 9.3 mg/dL (8.5-10.5); Carbon Dioxide 32 mmol/L (22-29); Chloride 91 mmol/L (98-107); Globulin 3.5 g/dL (1.3-4.6); Glucose 174 mg/dL (65-115); NT Pro B Type Natriuretic Pept 1189 pg/mL (0-450); Osmolality Calculated 286 mOsm/kg (285-295); Potassium 3.5 mmol/L (3.5-5.1); Sodium 133 mmol/L (136-145); Total Bilirubin 0.5 mg/dL (0.15-1.2); Total Protein 6.7 g/dL (6.6-8.7)
[2022-06-10 06:51] LABS: Glucose Point of Care 141 mg/dL (70-110)
--- NOTE | 2022-06-10 07:39 | PC.NURSE ---
I reported the high temp to the nurse 100.6a
--- NOTE | 2022-06-10 08:15 | XR_ITS ---
WS: [id number] PORTABLE CHEST HISTORY: fever COMPARISON: 06/06/2022 Lung volumes are decreased. Very minimal atelectasis in the lower lung abel. Mild interstitial thic kening. No consolidations. No pleural effusion or pneumothorax. Cardiac size: Normal. Mediastinum/Aorta: Normal mediastinum. Diffuse osteopenia. High riding RIGHT humeral head abutting the acromion. XR/XR chest 1V portable [id number] IMPRESSION: 1. Mild interstitial lung disease. 2. No focal pneumonia. 3. No fluid overload.
[2022-06-10] MEDS: amoxicillin-clav 875-125 mg Tablet 1 TAB PO ×2 (09:06→17:40)
[2022-06-10] MEDS: cholecalciferol (vitamin D3) 1,000 unit Tablet 2000 UNIT PO (09:07)
[2022-06-10] MEDS: aspirin 81 mg EC Tablet PO (09:07)
[2022-06-10] MEDS: clopidogrel 75 mg Tablet PO (09:07)
[2022-06-10] MEDS: doxycycline 100 mg Tablet PO ×2 (09:08→17:40)
[2022-06-10] MEDS: famotidine 20 mg Tablet PO ×2 (09:09→17:41)
[2022-06-10] MEDS: duloxetine 30 mg Capsule PO ×2 (09:09→17:40)
[2022-06-10] MEDS: gabapentin 300 mg Capsule PO ×3 (09:10→20:39)
[2022-06-10] MEDS: tamsulosin 0.4 mg Capsule PO ×2 (09:10→17:41)
[2022-06-10] MEDS: midodrine 5 mg TABLET PO ×3 (09:10→20:39)
[2022-06-10] MEDS: insulin lispro 100 unit/1 mL SUBCUT ×3 (09:11→17:41)
[2022-06-10] MEDS: insulin glargine 100 units/1 mL 15 UNIT SUBCUT ×2 (09:11→17:41)
[2022-06-10] MEDS: FUROsemide 10 mg/mL SDV 4mL 40 MG IVP (09:12)
[2022-06-10] MEDS: finasteride 5 mg Tablet PO (09:20)
[2022-06-10 11:32] LABS: Glucose Point of Care 173 mg/dL (70-110)
[2022-06-10 12:56] LABS: SARS Covid-2 Antigen Negative (Negative)
[2022-06-10] MEDS: methocarbamol 500 mg Tablet PO ×2 (14:16→20:39)
[2022-06-10 17:16] LABS: Glucose Point of Care 174 mg/dL (70-110)
--- NOTE | 2022-06-10 18:48 | PC.NURSE ---
Bedside report given to Jneise WOODS at this time
--- NOTE | 2022-06-10 20:23 | PC.NURSE ---
i reported low 02 88 to nurse
[2022-06-10] MEDS: enoxaparin 40 mg/0.4 mL Syringe SUBCUT (20:39)
[2022-06-10] MEDS: acetaminophen 325 mg Tablet 650 MG PO (20:51)
--- NOTE | 2022-06-10 21:13 | P.PN_ITS ---
Subjective Subjective: Discussed with him regarding low-grade fever last night. He reports he is not feeling much different, however, states has been having some cough. Producing some phlegm. Denies new pain or discomfort. Vitals/I&O/Wt Last Vital Signs Temp 100.6 F H 06/10/22 20:00 Pulse 94 06/10/22 20:00 Resp 17 06/10/22 20:00 BP 144/77 06/10/22 20:00 Pulse Ox 88 L 06/10/22 20:00 O2 Del Method 06/10/22 15:30 06/10/22 06/10/22 06/10/22 06:59 14:59 22:59 Intake Total 480 / 480 480 / 960 Output Total 425 / 425 225 / 650 Balance 55 / 55 255 / 310 Physical Exam Const: COMMON NORMALS: patient oriented x3 and alert GENERAL APPEARANCE: cooperative ORIENTATION/CONSCIOUSNESS: Yes awake HENMT: COMMON NORMALS: oropharynx normal Neck/C-Spine: COMMON NORMALS: no JVD Resp: COMMON NORMALS: normal respiratory effort and clear to auscultation jesusita aterally AUSCULTATION: clear to auscultation bilaterally Cardio: COMMON NORMALS: no JVD, regular rhythm, S1 normal heart sound present, S2 normal heart sound present and No murmurs present (Cardio) RHYTHM: regular rhythm HEART SOUNDS: S1 normal heart sound present and S2 normal heart sound present GI: COMMON NORMALS: Normal to inspection, nondistended, normoactive bowel sounds present, Soft to palpation and non-tender PALPATION: Yes Soft to palpation Extremity: COMMON NORMALS: no joint enlargement and no pedal edema Neuro: COMMON NORMALS: patient oriented x3 and moves all extremities SENSORIUM/ORIENTATION: Yes alert Skin: COMMON NORMALS: no rashes or lesions noted GENERAL SKIN EXAM: no rashes or lesions noted Data : 06/10/22 05:08 06/10/22 05:08 Micro: Microbiology 06/10/22 12:08 Gram Stain - Final Sputum - Expectorated Sputum A&P Assessment and plan (1) Fever: Unclear cause of fever. Additional assessment with chest x-ray, UA. Rapid COVID-19 is negative. Will check serum cortisol. Status: Acute (2) Syncope and collapse: Check serum cortisol. Orthostatic blood pressures are better this morning. On assessment with PT from laying to sitting systolic blood pressure down from 131-117. Continue midodrine 5 mg 3 times daily. Reassess orthostatics. Continue Robaxin at decreased dose. Reduced Lasix dose to 40 mg every 24 hours. Recheck magnesium. Stress test after discharge. Daughter would like to discuss consideration of hospice care. Status: Acute (3) NSTEMI (non-ST elevated myocardial infarction): Status: Acute (4) CHF exacerbation: Status: Acute (5) Cellulitis: Status: Acute (6) Spinal stenosis: Status: Acute (7) Generalized weakness: Status: Acute (8) Falls: Status: Acute (9) Uncontrolled type 2 diabetes mellitus: Status: Acute Qualifiers: Glycemic state: with hyperglycemia Qualified Code(s): E11.65 - Type 2 diabetes mellitus with hyperglycemia (10) Hyperlipidemia: Status: Acute Qualifiers: Hyperlipidemia type: mixed hyperlipidemia Qualified Code(s): E78.2 - Mixed hyperlipidemia (11) Diabetic neuropathy: Status: Acute (12) Coronary artery disease: Status: Acute (13) CHF (congestive heart failure), NYHA class III: Status: Acute Qualifiers: Congestive heart failure type: unspecified Qualified Code(s): I50.9 - Heart failure, unspecified (14) HTN (hypertension): Status: Acute Qualifiers: Hypertension type: essential hypertension Qualified Code(s): I10 - Essential (primary) hypertension (15) PAD (peripheral artery disease): Status: Acute Plan Systolic CHF exacerbation, fluid overload -Fluid restrictions 1500 cc -Reduce Lasix 40 IV daily Diabetic ulcers, bilateral lower extremity -Wound care -Augmentin, doxycycline Type 2 diabetes mellitus with diabetic neuropathy With episodes of hypoglycemia. Glucose has improved. Continue decrease Lantus dose to 15 units twice daily. Low-dose sliding scale. Deconditioning, falls, as above Attestations Medical Necessity Statement*: Continue admission for assessment of management of fever, severe orthostasis symptomatic even while sitting up -unable to use w heelchair. Coding Level of Care Code Acute [employer] for [facility] Diagnoses Fever R50.9 Syncope and collapse R55 NSTEMI (non-ST elevated myocardial infarction) I21.4 CHF exacerbation I50.9 Cellulitis L03.90 Spinal stenosis M48.00 Generalized weakness R53.1 Falls [id number] Uncontrolled type 2 diabetes mellitus E11.65 Glycemic state: with hyperglycemia Hyperlipidemia E78.2 Hyperlipidemia type: mixed hyperlipidemia Diabetic neuropathy E11.40 Coronary artery disease I25.10 CHF (congestive heart failure), NYHA class III I50.9 Congestive heart failure type: unspecified HTN (hypertension) I10 Hypertension type: essential hypertension PAD (peripheral artery disease) I73.9
[2022-06-10 21:24] LABS: Glucose Point of Care 242 mg/dL (70-110)
--- NOTE | 2022-06-10 22:29 | PC.NURSE ---
gonzales catheter placed per Dr Beach order, sterile technique used, 500 cc urine output
[2022-06-10 22:47] LABS: Add Urine Microscopic? YES; Bilirubin Urine Neg (Negative); Blood Urine 2+ (Negative); Glucose Urine UA Norm (Normal); Ketones Urine Negative (Negative); Leukocyte Esterase Urine Negative (Negative); Nitrate Urine Negative (Negative); Protein Urine 1+ (Negative); Urine Appearance Clear (CLEAR); Urine Color Yellow (Yellow); Urobilinogen Urine Norm (Negative); pH Urine 5 (5-7)
[2022-06-10 22:48] LABS: Add Urine Culture? No; Bacteria Urine TRACE /hpf; Hyaline Casts Urine 0-4 /lpf; Mucus Urine 1+ /hpf; RBC Urine 0-4 /hpf (0-2); Squamous Epithelial Cell Urine 0-4 /hpf (0-5); WBC Urine 0-4 /hpf (0-5)
[2022-06-11] VITALS (12 sets, daily range): BP systolic 123–155; BP diastolic 70–80; PULSE 86–93; RESP 16–22; TEMP 34.8–37.7; O2SAT 88–95
[2022-06-11] MEDS: levothyroxine 25 mcg Tablet PO (05:17)
[2022-06-11 06:04] LABS: Basophils % 0.4 %; Hematocrit 46.1 % (42.0-52.0); Hemoglobin 15.5 g/dL (11.7-16.6); Lymphocytes # 1.6 10^3/uL (0.8-4.8); Lymphocytes % 15.1 %; Mean Corpuscular HGB Conc 33.6 g/dL (30.0-36.0); Mean Corpuscular Hemoglobin 30.8 pg (28.0-34.0); Mean Corpuscular Volume 91.7 fl (80-94); Mean Platelet Volume 10.6 fL (7.4-10.4); Monocytes # 2.1 10^3/uL (0.2-0.9); Monocytes % 19.8 %; Neutrophils # 6.88 10^3/uL (1.8-7.7); Neutrophils % 64.3 %; Nucleated Red Blood Cells % 0 %; Platelet Count 137 10^3/cmm (130-400); Red Blood Count 5.03 10^6/uL (4.1-5.3); Red Cell Distribution Width 13.9 % (12.1-15.1); White Blood Count 10.7 10^3/uL (4.0-10.0)
[2022-06-11 06:29] LABS: Glucose Point of Care 203 mg/dL (70-110)
[2022-06-11 06:33] LABS: Alanine Aminotransferase 24 U/L (0-41); Albumin Level 3.1 g/dL (3.5-5.2); Alkaline Phosphatase 157 IU/L (40-130); Anion Gap 14.3 (5-19); Aspartate Amino Transferase 46 U/L (0-40); Blood Urea Nitrogen 29 mg/dL (8-23); Calcium 9.2 mg/dL (8.5-10.5); Carbon Dioxide 32 mmol/L (22-29); Chloride 87 mmol/L (98-107); Globulin 3.5 g/dL (1.3-4.6); Glucose 169 mg/dL (65-115); Magnesium 1.5 mg/dL (1.7-2.3); Osmolality Calculated 280 mOsm/kg (285-295); Potassium 3.3 mmol/L (3.5-5.1); Sodium 130 mmol/L (136-145); Total Bilirubin 0.6 mg/dL (0.15-1.2); Total Protein 6.6 g/dL (6.6-8.7)
[2022-06-11 06:41] LABS: Cortisol Random 20.44 ug/dL (2.47-19.5)
[2022-06-11] MEDS: finasteride 5 mg Tablet PO (08:29)
[2022-06-11] MEDS: gabapentin 300 mg Capsule PO ×2 (08:29→15:19)
[2022-06-11] MEDS: duloxetine 30 mg Capsule PO (08:29)
[2022-06-11] MEDS: tamsulosin 0.4 mg Capsule PO ×2 (08:29→18:36)
[2022-06-11] MEDS: clopidogrel 75 mg Tablet PO (08:30)
[2022-06-11] MEDS: aspirin 81 mg EC Tablet PO (08:30)
[2022-06-11] MEDS: methocarbamol 500 mg Tablet PO ×3 (08:30→23:15)
[2022-06-11] MEDS: amoxicillin-clav 875-125 mg Tablet 1 TAB PO (08:30)
[2022-06-11] MEDS: cholecalciferol (vitamin D3) 1,000 unit Tablet 2000 UNIT PO (08:30)
[2022-06-11] MEDS: famotidine 20 mg Tablet PO (08:30)
[2022-06-11] MEDS: doxycycline 100 mg Tablet PO (08:30)
[2022-06-11] MEDS: midodrine 5 mg TABLET PO ×3 (08:30→23:15)
[2022-06-11] MEDS: insulin lispro 100 unit/1 mL SUBCUT ×2 (08:31→12:10)
[2022-06-11] MEDS: insulin glargine 100 units/1 mL 15 UNIT SUBCUT (08:44)
[2022-06-11] MEDS: FUROsemide 10 mg/mL SDV 4mL 40 MG IVP (08:54)
--- NOTE | 2022-06-11 09:06 | PC.SOCIAL ---
IMM update IMM updated with patient. Verbalized an understanding. Copy Pg 2 provided. Initialled, dated, timed, and placed in chart.
[2022-06-11] MEDS: magnesium sulfate premix 2 GM/50 ML PIGGYBACK IV (09:17)
--- NOTE | 2022-06-11 09:26 | PC.NURSE ---
Spoke with physician regarding change in patient from yesterday. Daughter reports that patient is weak and lethargic compared to yesterday. He has also developed a non productive cough and is short of breath along with a new rash on lateral torso bilaterally, and underneath his arms.
[2022-06-11] MEDS: guaiFENesin 600 mg Tablet 1200 MG PO ×2 (09:56→18:36)
[2022-06-11 11:52] LABS: Glucose Point of Care 198 mg/dL (70-110)
[2022-06-11] MEDS: ipratropium-albuterol 3 mL Neb INHALATION ×2 (14:44→22:19)
[2022-06-11 17:26] LABS: Glucose Point of Care 133 mg/dL (70-110)
--- NOTE | 2022-06-11 18:38 | PM.PN ---
Subjective Subjective: Today has been feeling weaker. He is also developed a rash under his arms and in her armpits. Denies lesions in his mouth. Denies any nausea vomiting or diarrhea. No abdominal pain or tenderness. Has been coughing. Coughing up some purulent/brownish appearing phlegm. Vitals/I&O/Wt Last Vital Signs Temp 94.6 F L 06/11/22 16:00 Pulse 93 06/11/22 16:00 Resp 16 06/11/22 16:00 BP 143/76 06/11/22 16:00 Pulse Ox 95 06/11/22 16:00 O2 Del Method 06/11/22 14:55 O2 Flow Rate 2 06/11/22 14:55 06/11/22 06/11/22 06/11/22 06:59 14:59 22:59 Intake Total 286 / 286 Output Total 400 / 1550 Balance -400 / -90 286 / 286 Physical Exam Narrative: Family at bedside Const: COMMON NORMALS: patient oriented x3 and alert GENERAL APPEARANCE: cooperative ORIENTATION/CONSCIOUSNESS: Yes awake OTHER: Appears weaker. Responds to voice, but diminished/sluggish. HENMT: COMMON NORMALS: oropharynx normal Neck/C-Spine: COMMON NORMALS: no JVD Resp: COMMON NORMALS: normal respiratory effort AUSCULTATION: rhonchi Cardio: COMMON NORMALS: no JVD, regular rhythm, S1 normal heart sound present, S2 normal heart sound present and No murmurs present (Cardio) RHYTHM: regular rhythm HEART SOUNDS: S1 normal heart sound present and S2 normal heart sound present GI: COMMON NORMALS: Normal to inspection, nondistended, normoactive bowel sounds present, Soft to palpation and non-tender PALPATION: Yes Soft to palpation Extremity: COMMON NORMALS: no joint enlargement and no pedal edema Neuro: COMMON NORMALS: patient oriented x3 and moves all extremities SENSORIUM/ORIENTATION: Yes alert Skin: RASHES: rashes noted OTHER: Greyson consented to patches in armpits, macules on her arms, bilateral torso. Nonpruritic. No bullae. No mucosal lesions. Urinary Catheter Management: Marx: Cath Placed During This Visit: yes Reason for Continuing Indwelling Catheter: Acute Urinary Retention or Obstruction Urinary Catheter Date of Insertion: 06/10/22 Urinary Catheter Time of Insertion: 22:28 Data : 06/11/22 05:36 06/11/22 05:36 Micro: Microbiology 06/06/22 13:53 Blood Culture - Final Blood NO GROWTH AFTER 5 DAYS 06/06/22 13:50 Blood Culture - Final Blood NO GROWTH AFTER 5 DAYS 06/10/22 12:08 Gram Stain - Final Sputum - Expectorated Sputum Sputum Culture - Preliminary A&P Assessment and plan (1) Fever: Again recurrence of low-grade fever. Chest x-ray without pneumonia. UA checked as well and without suggestion of UTI. She is feeling generally weak. Continue to have cough productive of some purulent/brownish sputum although having difficult time expectorating. Has been on Augmentin and doxycycline, however, today with developed rash in the armpits, under arms and torso. These medications are discontinued for concern of possibly contributing to the rash. Discussed with family possible viral infection which perhaps could be responsible for both his respiratory symptoms and the rash. Respiratory viral panel sent. Hold Augmentin and doxycycline. For now empirically changed to Levaquin, vancomycin. Check MRSA PCR. unclear cause of fever. Additional assessment with chest x-ray, UA. Rapid COVID-19 is negative. Will check serum cortisol. Status: Acute (2) Rash: Macular nonpruritic known blistering rash under arms, lateral torso, confluent patches in the armpits. No mucosal lesions. Additional medication changes and work-up as above including respiratory viral panel. Hold potential offending medications. We will also check ESR, CRP. Check TAE profile, ANCA. Consider biopsy. Status: Acute (3) Generalized weakness: He is currently weaker, and this appears may be multifactorial, including possible viral flulike illness, with respiratory symptoms, rash. Additionally concern for possible drug reaction, due to this Augmentin, doxycycline, Lasix, gabapentin, duloxetine, famotidine are for now withheld. Additionally he has had continued diuresis for CHF, his lower extremity edema had resolved, Lasix dose has been cut down, however, my concern is that he may be now on the dry side with noted increase in BUN, bicarbonate. We will also give him an infusion of albumin. Lasix are held. Status: Acute (4) Syncope and collapse: Blood pressures have actually been better. Due to above causes orthostatics for now not reassessed. Adequate serum cortisol. Orthostatic blood pressures are better this morning. On assessment with PT from laying to sitting systolic blood pressure down from 131-117. Continue midodrine 5 mg 3 times daily. Reassess orthostatics. Continue Robaxin at decreased dose. Reduced Lasix dose to 40 mg every 24 hours. Recheck magnesium. Stress test after discharge. Daughter would like to discuss consideration of hospice care. Status: Acute (5) NSTEMI (non-ST elevated myocardial infarction): Status: Acute (6) CHF exacerbation: Stop further Lasix. Albumin infusion. Status: Acute (7) Cellulitis: Status: Acute (8) Spinal stenosis: Status: Acute (9) Falls: Status: Acute (10) Uncontrolled type 2 diabetes mellitus: Status: Acute Qualifiers: Glycemic state: with hyperglycemia Qualified Code(s): E11.65 - Type 2 diabetes mellitus with hyperglycemia (11) Hyperlipidemia: Status: Acute Qualifiers: Hyperlipidemia type: mixed hyperlipidemia Qualified Code(s): E78.2 - Mixed hyperlipidemia (12) Diabetic neuropathy: Status: Acute (13) Coronary artery disease: Status: Acute (14) CHF (congestive heart failure), NYHA class III: Exacerbation has resolved. Further Lasix held. Status: Acute Qualifiers: Congestive heart failure type: unspecified Qualified Code(s): I50.9 - Heart failure, unspecified (15) HTN (hypertension): Status: Acute Qualifiers: Hypertension type: essential hypertension Qualified Code(s): I10 - Essential (primary) hypertension (16) PAD (peripheral artery disease): Status: Acute Plan Diabetic ulcers, bilateral lower extremity -Wound care -Augmentin, doxycycline stopped Type 2 diabetes mellitus with diabetic neuropathy With episodes of hypoglycemia. Glucose has improved. Continue decrease Lantus dose to 15 units twice daily. Low-dose sliding scale. Deconditioning, falls, as above Attestations Medical Necessity Statement*: Continued admission is needed for assessment of management of fever, respiratory infection, worsened generalized weakness, rash. Coding Level of Care Code Acute Aviation Safety Officer for [facility] Fwd Diagnoses Fever R50.9 Rash R21 Generalized weakness R53.1 Syncope and collapse R55 NSTEMI (non-ST elevated myocardial infarction) I21.4 CHF exacerbation I50.9 Cellulitis L03.90 Spinal stenosis M48.00 Falls [id number] Uncontrolled type 2 diabetes mellitus E11.65 Glycemic state: with hyperglycemia Hyperlipidemia E78.2 Hyperlipidemia type: mixed hyperlipidemia Diabetic neuropathy E11.40 Coronary artery disease I25.10 CHF (congestive heart failure), NYHA class III I50.9 Congestive heart failure type: unspecified HTN (hypertension) I10 Hypertension type: essential hypertension PAD (peripheral artery disease) I73.9
[2022-06-11 19:23] LABS: C Reactive Protein 28.9 mg/L (0.0-4.9)
[2022-06-11 19:51] LABS: Erythrocyte Sedimentation Rate 28 mm/hr (0-10)
[2022-06-11] MEDS: enoxaparin 40 mg/0.4 mL Syringe SUBCUT (20:02)
[2022-06-11] MEDS: levofloxacin-dextrose 5 % 750 MG/150 ML PREMIX 100 MG IV (20:02)
[2022-06-11 21:01] LABS: Glucose Point of Care 154 mg/dL (70-110)
[2022-06-11] MEDS: vancomycin 1,250 MG/250 ML PIGGYBACK 250 MG IV (21:05)
[2022-06-12] VITALS (12 sets, daily range): BP systolic 130–150; BP diastolic 70–80; PULSE 81–84; RESP 16–18; TEMP 36.6–37.1; O2SAT 92–98
[2022-06-12 05:58] LABS: Basophils % 0.3 %; Eosinophils % 0.1 %; Hematocrit 44.9 % (42.0-52.0); Hemoglobin 15.1 g/dL (11.7-16.6); Lymphocytes # 1.7 10^3/uL (0.8-4.8); Lymphocytes % 16.7 %; Mean Corpuscular HGB Conc 33.6 g/dL (30.0-36.0); Mean Corpuscular Hemoglobin 30.4 pg (28.0-34.0); Mean Corpuscular Volume 90.5 fl (80-94); Mean Platelet Volume 10.4 fL (7.4-10.4); Monocytes # 1.7 10^3/uL (0.2-0.9); Monocytes % 17.1 %; Neutrophils % 65.4 %; Nucleated Red Blood Cells % 0 %; Platelet Count 125 10^3/cmm (130-400); Red Blood Count 4.96 10^6/uL (4.1-5.3); Red Cell Distribution Width 13.6 % (12.1-15.1); White Blood Count 10.1 10^3/uL (4.0-10.0)
[2022-06-12] MEDS: levothyroxine 25 mcg Tablet PO (06:11)
[2022-06-12 06:24] LABS: Alanine Aminotransferase 19 U/L (0-41); Albumin Level 3.1 g/dL (3.5-5.2); Alkaline Phosphatase 130 IU/L (40-130); Anion Gap 13.1 (5-19); Aspartate Amino Transferase 40 U/L (0-40); Blood Urea Nitrogen 36 mg/dL (8-23); Calcium 8.7 mg/dL (8.5-10.5); Carbon Dioxide 33 mmol/L (22-29); Chloride 88 mmol/L (98-107); Globulin 3.3 g/dL (1.3-4.6); Glucose 132 mg/dL (65-115); Magnesium 1.7 mg/dL (1.7-2.3); Osmolality Calculated 282 mOsm/kg (285-295); Potassium 3.1 mmol/L (3.5-5.1); Sodium 131 mmol/L (136-145); Total Bilirubin 0.6 mg/dL (0.15-1.2); Total Protein 6.4 g/dL (6.6-8.7)
[2022-06-12 06:26] LABS: Creatine Phosphokinase 425 U/L (39-308)
[2022-06-12 06:39] LABS: Glucose Point of Care 150 mg/dL (70-110)
[2022-06-12] MEDS: aspirin 81 mg EC Tablet PO (08:42)
[2022-06-12] MEDS: methocarbamol 500 mg Tablet PO ×3 (08:42→20:28)
[2022-06-12] MEDS: insulin lispro 100 unit/1 mL SUBCUT ×3 (08:42→18:23)
[2022-06-12] MEDS: vancomycin 1,250 MG/250 ML PIGGYBACK 250 MG IV (08:42)
[2022-06-12] MEDS: insulin glargine 100 units/1 mL 15 UNIT SUBCUT ×2 (08:42→18:22)
[2022-06-12] MEDS: midodrine 5 mg TABLET PO ×3 (08:43→20:28)
[2022-06-12] MEDS: cholecalciferol (vitamin D3) 1,000 unit Tablet 2000 UNIT PO (08:43)
[2022-06-12] MEDS: clopidogrel 75 mg Tablet PO (08:43)
[2022-06-12] MEDS: guaiFENesin 600 mg Tablet 1200 MG PO ×2 (08:43→18:22)
[2022-06-12] MEDS: finasteride 5 mg Tablet PO (08:44)
[2022-06-12] MEDS: tamsulosin 0.4 mg Capsule PO ×2 (08:44→18:22)
[2022-06-12] MEDS: ipratropium-albuterol 3 mL Neb INHALATION ×3 (09:25→22:35)
[2022-06-12] MEDS: potassium chloride ER 20 mEq Tablet PO (10:59)
--- NOTE | 2022-06-12 11:13 | PC.NURSE ---
pt unable to stand for orthos
[2022-06-12 11:44] LABS: Quest SARS-CoV-2 RNA DETECTED (NOT DETECTED)
[2022-06-12 12:46] LABS: Glucose Point of Care 151 mg/dL (70-110)
--- NOTE | 2022-06-12 15:57 | P.PN_ITS ---
Subjective Subjective: Today he has perked up, he is feeling better, appears stronger and more energetic. He is more alert, responsive, ate some breakfast. Rash under his arms so far without extension. Still some intermittent cough. Vitals/I&O/Wt Last Vital Signs Temp 98 F 06/12/22 15:26 Pulse 82 06/12/22 15:26 Resp 18 06/12/22 15:26 BP 144/80 06/12/22 15:26 Pulse Ox 98 06/12/22 15:26 O2 Del Method 06/12/22 15:26 O2 Flow Rate 2 06/12/22 09:26 06/12/22 06/12/22 06/12/22 06:59 14:59 22:59 Intake Total 892 / 892 Output Total 700 / 700 750 / 750 Balance -700 / -164 142 / 142 Physical Exam Narrative: Family at bedside Const: COMMON NORMALS: patient oriented x3 and alert GENERAL APPEARANCE: cooperative ORIENTATION/CONSCIOUSNESS: Yes awake OTHER: Appears weaker. Responds to voice, but diminished/sluggish. HENMT: COMMON NORMALS: oropharynx normal Neck/C-Spine: COMMON NORMALS: no JVD Resp: COMMON NORMALS: normal respiratory effort and clear to auscultation bilaterally AUSCULTATION: clear to auscultation bilaterally and rhonchi Cardio: COMMON NORMALS: no JVD, regular rhythm, S1 normal heart sound present, S2 normal heart sound present and No murmurs present (Cardio) RHYTHM: regular rhythm HEART SOUNDS: S1 normal heart sound present and S2 normal heart sound present GI: COMMON NORMALS: Normal to inspection, nondistended, normoactive bowel sounds present, Soft to palpation and non-tender PALPATION: Yes Soft to palpation Extremity: COMMON NORMALS: no joint enlargement and no pedal edema Neuro: COMMON NORMALS: patient oriented x3 and moves all extremities SENSORIUM/ORIENTATION: Yes alert Skin: COMMON NORMALS: no rashes or lesions noted GENERAL SKIN EXAM: no rashes or lesions noted RASHES: rashes noted OTHER: Greyson consented to patches in armpits, macules on her arms, bilateral torso. Nonpruritic. No bullae. No mucosal lesions. Urinary Catheter Management: Marx: Cath Placed During This Visit: yes Reason for Continuing Indwelling Catheter: Accurate Measurement of Urinary Output in Critically Ill Patients Urinary Catheter Date of Insertion: 06/10/22 Urinary Catheter Time of Insertion: 22:28 Data : 06/12/22 05:45 06/12/22 05:45 Micro: Microbiology 06/10/22 12:08 Gram Stain - Final Sputum - Expectorated Sputum Sputum Culture - Final 06/06/22 13:53 Blood Culture - Final Blood NO GROWTH AFTER 5 DAYS 06/06/22 13:50 Blood Culture - Final Blood NO GROWTH AFTER 5 DAYS A&P Assessment and plan (1) Fever: So far without recurrence. Rash persists, but without expansion today. No blister ration. Today appears less intense in coloration. He is positive for COVID-19, which could also explain his symptoms and fever. UA checked as well and without suggestion of UTI. For now empirically on Levaquin, vancomycin. Negative MRSA PCR. Will de- escalate vancomycin. Status: Acute (2) Rash: No progression of rash today. Today he is feeling better. Discussed a number of medications still on hold. He has been on duloxetine and appropriate previously and with concern for withdrawal we discussed cautious resumption at lower doses. Additional assessment was requested with inflammatory markers, TAE, ANCA. Macular nonpruritic known blistering rash under arms, lateral torso, confluent patches in the armpits. No mucosal lesions. Additional medication changes and work-up as above including respiratory viral panel. Hold potential offending medications. We will also check ESR, CRP. Check TAE profile, ANCA. Consider biopsy. Status: Acute (3) Generalized weakness: He is doing better today. Blood pressures actually been improving, orthostasis still somewhat present, but less so. Systolic blood pressure today on assessment with decreased from 150 to 139 mmHg. Generalized weakness possibly also related to COVID-19. He is improving. Additionally thought to have had some hypovolemia with diuresis, so Lasix were discontinued, was given a dose of albumin. Status: Acute (4) Syncope and collapse: Orthostatics appear to be gradually improving. Reassess again tomorrow. Adequate serum cortisol. Continue midodrine 5 mg 3 times daily. Reassess orthostatics. Continue Robaxin at decreased dose. Reduced Lasix dose to 40 mg every 24 hours. Recheck magnesium. Stress test after discharge. Daughter would like to discuss consideration of hospice care. Status: Acute (5) COVID-19: Found positive for COVID-19. This may explain his low-grade fevers, fatigue, cough. He is on 3 L nasal cannula, but his oxygenation is doing very well. We will try to see if this can be weaned down. If having the time with oxygenation consider treatment with antiviral, steroid. Continue VTE prophylaxis. Status: Acute (6) NSTEMI (non-ST elevated myocardial infarction): Status: Acute (7) CHF exacerbation: Stop further Lasix. Albumin infusion. Status: Acute (8) Cellulitis: Status: Acute (9) Spinal stenosis: Status: Acute (10) Falls: Status: Acute (11) Uncontrolled type 2 diabetes mellitus: Status: Acute Qualifiers: Glycemic state: with hyperglycemia Qualified Code(s): E11.65 - Type 2 diabetes mellitus with hyperglycemia (12) Hyperlipidemia: Status: Acute Qualifiers: Hyperlipidemia type: mixed hyperlipidemia Qualified Code(s): E78.2 - Mixed hyperlipidemia (13) Diabetic neuropathy: Status: Acute (14) Coronary artery disease: Status: Acute (15) CHF (congestive heart failure), NYHA class III: Exacerbation has resolved. Further Lasix held. Status: Acute Qualifiers: Congestive heart failure type: unspecified Qualified Code(s): I50.9 - Heart failure, unspecified (16) HTN (hypertension): Status: Acute Qualifiers: Hypertension type: essential hypertension Qualified Code(s): I10 - Essential (primary) hypertension (17) PAD (peripheral artery disease): Status: Acute Plan Diabetic ulcers, bilateral lower extremity -Wound care -Augmentin, doxycycline stopped Type 2 diabetes mellitus with diabetic neuropathy With episodes of hypoglycemia. Glucose has improved. Continue decrease Lantus dose to 15 units twice daily. Low-dose sliding scale. Deconditioning, falls, as above Attestations Medical Necessity Statement*: Continue admission for assessment and management of generalized weakness, fever, rash, CHF, COVID-19, discharge planning. Coding Level of Care Code Acute Preparatory Technician for g Fwd Exam Comprehensive Diagnoses Fever R50.9 Rash R21 Generalized weakness R53.1 Syncope and collapse R55 COVID-19 U07.1 NSTEMI (non-ST elevated myocardial infarction) I21.4 CHF exacerbation I50.9 Cellulitis L03.90 Spinal stenosis M48.00 Falls [id number] Uncontrolled type 2 diabetes mellitus E11.65 Glycemic state: with hyperglycemia Hyperlipidemia E78.2 Hyperlipidemia type: mixed hyperlipidemia Diabetic neuropathy E11.40 Coronary artery disease I25.10 CHF (congestive heart failure), NYHA class III I50.9 Congestive heart failure type: unspecified HTN (hypertension) I10 Hypertension type: essential hypertension PAD (peripheral artery disease) I73.9
[2022-06-12 17:07] LABS: Glucose Point of Care 182 mg/dL (70-110)
[2022-06-12] MEDS: levofloxacin-dextrose 5 % 750 MG/150 ML PREMIX 100 MG IV (18:23)
[2022-06-12] MEDS: enoxaparin 40 mg/0.4 mL Syringe SUBCUT (18:23)
[2022-06-12 20:53] LABS: Glucose Point of Care 214 mg/dL (70-110)
[2022-06-13] VITALS (14 sets, daily range): BP systolic 124–156; BP diastolic 69–75; PULSE 53–92; RESP 12–18; TEMP 36.4–37.6; O2SAT 90–97
[2022-06-13] MEDS: ipratropium-albuterol 3 mL Neb INHALATION ×4 (02:59→20:41)
[2022-06-13 05:01] LABS: Basophils % 0.3 %; Eosinophils % 0.4 %; Hematocrit 43.9 % (42.0-52.0); Hemoglobin 14.9 g/dL (11.7-16.6); Lymphocytes # 1.3 10^3/uL (0.8-4.8); Lymphocytes % 16.7 %; Mean Corpuscular HGB Conc 33.9 g/dL (30.0-36.0); Mean Corpuscular Hemoglobin 30.5 pg (28.0-34.0); Monocytes # 1.2 10^3/uL (0.2-0.9); Monocytes % 16.1 %; Neutrophils # 5.04 10^3/uL (1.8-7.7); Neutrophils % 66.1 %; Nucleated Red Blood Cells % 0 %; Platelet Count 113 10^3/cmm (130-400); Red Blood Count 4.88 10^6/uL (4.1-5.3); Red Cell Distribution Width 13.3 % (12.1-15.1); White Blood Count 7.6 10^3/uL (4.0-10.0)
[2022-06-13 05:13] LABS: D Dimer 0.85 ug/mIFEU (0-0.59)
[2022-06-13 05:25] LABS: Alanine Aminotransferase 23 U/L (0-41); Albumin Level 3.2 g/dL (3.5-5.2); Alkaline Phosphatase 130 IU/L (40-130); Anion Gap 12.1 (5-19); Aspartate Amino Transferase 47 U/L (0-40); Blood Urea Nitrogen 30 mg/dL (8-23); Calcium 8.9 mg/dL (8.5-10.5); Carbon Dioxide 30 mmol/L (22-29); Chloride 91 mmol/L (98-107); Globulin 3.2 g/dL (1.3-4.6); Glucose 151 mg/dL (65-115); Magnesium 1.7 mg/dL (1.7-2.3); Osmolality Calculated 279 mOsm/kg (285-295); Potassium 3.1 mmol/L (3.5-5.1); Sodium 130 mmol/L (136-145); Total Bilirubin 0.7 mg/dL (0.15-1.2); Total Protein 6.4 g/dL (6.6-8.7)
[2022-06-13] MEDS: potassium chloride ER 20 mEq Tablet 60 MEQ PO (06:15)
[2022-06-13] MEDS: levothyroxine 25 mcg Tablet PO (06:15)
[2022-06-13 06:28] LABS: Glucose Point of Care 174 mg/dL (70-110)
--- NOTE | 2022-06-13 09:00 | PC.SOCIAL ---
IMM update IMM updated with patient. Verbalized an understanding. Copy Pg 2 provided. Initialled, dated, timed, and placed in chart
[2022-06-13] MEDS: methocarbamol 500 mg Tablet PO ×3 (09:08→20:11)
[2022-06-13] MEDS: finasteride 5 mg Tablet PO (09:08)
[2022-06-13] MEDS: tamsulosin 0.4 mg Capsule PO ×2 (09:08→18:05)
[2022-06-13] MEDS: guaiFENesin 600 mg Tablet 1200 MG PO ×2 (09:08→18:04)
[2022-06-13] MEDS: potassium chloride ER 20 mEq Tablet 40 MEQ PO (09:08)
[2022-06-13] MEDS: insulin lispro 100 unit/1 mL SUBCUT ×2 (09:08→13:39)
[2022-06-13] MEDS: aspirin 81 mg EC Tablet PO (09:09)
[2022-06-13] MEDS: midodrine 5 mg TABLET PO ×3 (09:09→20:11)
[2022-06-13] MEDS: insulin glargine 100 units/1 mL 15 UNIT SUBCUT ×2 (09:09→18:05)
[2022-06-13] MEDS: clopidogrel 75 mg Tablet PO (09:09)
[2022-06-13] MEDS: cholecalciferol (vitamin D3) 1,000 unit Tablet 2000 UNIT PO (09:09)
[2022-06-13] MEDS: magnesium sulfate premix 2 GM/50 ML PIGGYBACK IV (09:09)
[2022-06-13 10:38] LABS: COMPLEMENT COMPONENT C3C 117 mg/dL (82-185); COMPLEMENT COMPONENT C4C 26 mg/dL (15-53)
[2022-06-13 11:32] LABS: Glucose Point of Care 235 mg/dL (70-110)
[2022-06-13 13:03] LABS: CENTROMERE B ANTIBODY <1.0 NEG AI (<1.0 NEG); JO-1 ANTIBODY <1.0 NEG AI (<1.0 NEG); RNP ANTIBODY <1.0 NEG AI (<1.0 NEG); SCL-70 ANTIBODY <1.0 NEG AI (<1.0 NEG); SJOGREN'S ANTIBODY (SS-A) <1.0 NEG AI (<1.0 NEG); SM ANTIBODY <1.0 NEG AI (<1.0 NEG); SS-B <1.0 NEG AI (<1.0 NEG)
[2022-06-13 13:17] LABS: COMPLEMENT, TOTAL (CH50) >60 U/mL (31-60)
[2022-06-13] MEDS: gabapentin 100 mg Capsule 200 MG PO ×2 (15:48→20:11)
[2022-06-13] MEDS: duloxetine 30 mg Capsule PO (15:48)
[2022-06-13 15:49] LABS: THYROID PEROXIDASE ANTIBODIES 1 IU/mL (<9)
--- NOTE | 2022-06-13 15:57 | PM.PN ---
Subjective Subjective: He feels he is gradually improving. Denies chest pain pressure. No headache nausea vomiting or diarrhea. Still some cough. He is comfortable sitting up in a chair. States rash has not been bothering him. Vitals/I&O/Wt Last Vital Signs Temp 98.1 F 06/13/22 04:00 Pulse 87 06/13/22 14:30 Resp 16 06/13/22 14:25 BP 127/73 06/13/22 11:58 Pulse Ox 97 06/13/22 14:25 O2 Del Method 06/13/22 11:58 O2 Flow Rate 2 06/13/22 11:58 06/13/22 06/13/22 06/13/22 06:59 14:59 22:59 Intake Total 650 / 650 Output Total 700 / 1450 Balance -700 / -168 650 / 650 Physical Exam Const: COMMON NORMALS: patient oriented x3 and alert GENERAL APPEARANCE: cooperative ORIENTATION/CONSCIOUSNESS: Yes awake OTHER: Stronger, more energetic. Sitting up in a chair. HENMT: COMMON NORMALS: oropharynx normal Neck/C-Spine: COMMON NORMALS: no JVD Resp: COMMON NORMALS: normal respiratory effort and clear to auscultation bilaterally AUSCULTATION: clear to auscultation bilaterally and rhonchi Cardio: COMMON NORMALS: no JVD, regular rhythm, S1 normal heart sound present, S2 normal heart sound present and No murmurs present (Cardio) RHYTHM: regular rhythm HEART SOUNDS: S1 normal heart sound present and S2 normal heart sound present GI: COMMON NORMALS: Normal to inspection, nondistended, normoactive bowel sounds present, Soft to palpation and non-tender PALPATION: Yes Soft to palpation Extremity: COMMON NORMALS: no joint enlargement and no pedal edema Neuro: COMMON NORMALS: patient oriented x3 and moves all extremities SENSORIUM/ORIENTATION: Yes alert Skin: COMMON NORMALS: no rashes or lesions noted GENERAL SKIN EXAM: no rashes or lesions noted RASHES: rashes noted OTHER: Macules and patches on her arms, lateral torso bilaterally. Nothing on the back. No blister ration. No mucosal lesions. Urinary Catheter Management: Marx: Cath Placed During This Visit: yes Reason for Continuing Indwelling Catheter: Acute Urinary Retention or Obstruction Urinary Catheter Date of Insertion: 06/10/22 Urinary Catheter Time of Insertion: 22:28 Data : 06/13/22 04:41 06/13/22 04:41 A&P Assessment and plan (1) Fever: Fever so far has resolved. Rash persists, but without expansion today. No blisteration. Today appears less intense in coloration. No mucosal lesions. He is positive for COVID-19, which could also explain his symptoms and fever. Mild hypoxia, has been requiring 2 L of oxygen. UA checked as well and without suggestion of UTI. For now empirically on Levaquin, vancomycin. Negative MRSA PCR. Will de-escalate vancomycin. Status: Acute (2) COVID-19: As he has been requiring 2 L of oxygen, discussed with him treatment with remdesivir, steroid. However, his oxygenation appears to be continually improving. He is saturating 97% on 2 L nasal cannula, and currently Trial of weaning down to room air, so far doing well. In case persistent need for oxygen, start remdesivir, Decadron. He is on 3 L nasal cannula, but his oxygenation is doing very well. Continue VTE prophylaxis. Status: Acute (3) Rash: Rash without progression, although has not improved significantly. No blisters. No drainage. No mucosal lesions. Patches on her arms and on the lateral torso bilaterally. Overall appears less intensely red. Unclear if secondary to acute viral loss, or secondary to medication reaction. Trial of resuming lower dose duloxetine, gabapentin, his chronic medications. It appears when they were resumed yesterday with modification of the order in the EMR they were still listed as on hold today. Resumed his new orders. Other medications, including amoxicillin, doxycycline, famotidine discontinued. Additional assessment was requested with inflammatory markers. TAE, ANCA pending. Macular nonpruritic known blistering rash under arms, lateral torso, confluent patches in the armpits. No mucosal lesions. Additional medication changes and work-up as above including respiratory viral panel. Hold potential offending medications. Status: Acute (4) Generalized weakness: Continuing to improve. Recheck orthostatics. Blood pressures actually been improving, orthostasis still somewhat present, but less so. Systolic blood pressure 8/4 on assessment with decreased from 150 to 139 mmHg. Generalized weakness possibly also related to COVID-19. He is improving. Additionally thought to have had some hypovolemia with diuresis, so Lasix were discontinued, was given a dose of albumin. Status: Acute (5) Syncope and collapse: Orthostatics appear to be gradually improving. Reassess again tomorrow. Adequate serum cortisol. Continue midodrine 5 mg 3 times daily. Reassess orthostatics. Continue Robaxin at decreased dose. Reduced Lasix dose to 40 mg every 24 hours. Recheck magnesium. Stress test after discharge. Daughter would like to discuss consideration of hospice care. Status: Acute (6) NSTEMI (non-ST elevated myocardial infarction): Status: Acute (7) CHF exacerbation: Stop further Lasix. Albumin infusion. Status: Acute (8) Cellulitis: Status: Acute (9) Spinal stenosis: Status: Acute (10) Falls: Status: Acute (11) Uncontrolled type 2 diabetes mellitus: Status: Acute Qualifiers: Glycemic state: with hyperglycemia Qualified Code(s): E11.65 - Type 2 diabetes mellitus with hyperglycemia (12) Hyperlipidemia: Status: Acute Qualifiers: Hyperlipidemia type: mixed hyperlipidemia Qualified Code(s): E78.2 - Mixed hyperlipidemia (13) Diabetic neuropathy: Status: Acute (14) Coronary artery disease: Status: Acute (15) CHF (congestive heart failure), NYHA class III: Exacerbation has resolved. Further Lasix held. Status: Acute Qualifiers: Congestive heart failure type: unspecified Qualified Code(s): I50.9 - Heart failure, unspecified (16) HTN (hypertension): Status: Acute Qualifiers: Hypertension type: essential hypertension Qualified Code(s): I10 - Essential (primary) hypertension (17) PAD (peripheral artery disease): Status: Acute Plan Thrombocytopenia: With suspect secondary to COVID-19. Diabetic ulcers, bilateral lower extremity -Wound care -Augmentin, doxycycline stopped Type 2 diabetes mellitus with diabetic neuropathy With episodes of hypoglycemia. Glucose has improved. Continue decrease Lantus dose to 15 units twice daily. Low-dose sliding scale. Deconditioning, falls, as above Attestations Medical Necessity Statement*: Continue admission for assessment and management of generalized weakness, COVID-19, hypoxia, fever and rash, discharge planning. 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 Comprehensive Diagnoses Fever R50.9 COVID-19 U07.1 Rash R21 Generalized weakness R53.1 Syncope and collapse R55 NSTEMI (non-ST elevated myocardial infarction) I21.4 CHF exacerbation I50.9 Cellulitis L03.90 Spinal stenosis M48.00 Falls [id number] Uncontrolled type 2 diabetes mellitus E11.65 Glycemic state: with hyperglycemia Hyperlipidemia E78.2 Hyperlipidemia type: mixed hyperlipidemia Diabetic neuropathy E11.40 Coronary artery disease I25.10 CHF (congestive heart failure), NYHA class III I50.9 Congestive heart failure type: unspecified HTN (hypertension) I10 Hypertension type: essential hypertension PAD (peripheral artery disease) I73.9
[2022-06-13 16:19] LABS: ANA SCREEN, IFA NEGATIVE (NEGATIVE)
[2022-06-13 17:50] LABS: Glucose Point of Care 184 mg/dL (70-110)
[2022-06-13] MEDS: levofloxacin-dextrose 5 % 750 MG/150 ML PREMIX 100 MG IV (18:09)
[2022-06-13] MEDS: enoxaparin 40 mg/0.4 mL Syringe SUBCUT (18:09)
[2022-06-13] MEDS: zolpidem 5 mg Tablet PO (20:11)
[2022-06-13 22:18] LABS: Glucose Point of Care 218 mg/dL (70-110)
[2022-06-14] VITALS (13 sets, daily range): BP systolic 129–151; BP diastolic 66–78; PULSE 60–94; RESP 15–96; TEMP 36.9–37.9; O2SAT 87–96
[2022-06-14] MEDS: ipratropium-albuterol 3 mL Neb INHALATION ×3 (01:52→20:39)
[2022-06-14 04:20] LABS: Basophils % 0.2 %; Eosinophils % 0.6 %; Hematocrit 42.8 % (42.0-52.0); Hemoglobin 14.6 g/dL (11.7-16.6); Lymphocytes # 1.2 10^3/uL (0.8-4.8); Lymphocytes % 18.6 %; Mean Corpuscular HGB Conc 34.1 g/dL (30.0-36.0); Mean Corpuscular Hemoglobin 30.5 pg (28.0-34.0); Mean Corpuscular Volume 89.4 fl (80-94); Mean Platelet Volume 11.3 fL (7.4-10.4); Monocytes # 1.1 10^3/uL (0.2-0.9); Monocytes % 17.9 %; Neutrophils # 3.89 10^3/uL (1.8-7.7); Neutrophils % 62.2 %; Nucleated Red Blood Cells % 0 %; Platelet Count 107 10^3/cmm (130-400); Red Blood Count 4.79 10^6/uL (4.1-5.3); Red Cell Distribution Width 13.2 % (12.1-15.1); White Blood Count 6.3 10^3/uL (4.0-10.0)
[2022-06-14 04:30] LABS: D Dimer 0.83 ug/mIFEU (0-0.59)
[2022-06-14 04:44] LABS: Alanine Aminotransferase 33 U/L (0-41); Albumin Level 2.9 g/dL (3.5-5.2); Alkaline Phosphatase 143 IU/L (40-130); Anion Gap 11.9 (5-19); Aspartate Amino Transferase 56 U/L (0-40); Blood Urea Nitrogen 23 mg/dL (8-23); Calcium 8.8 mg/dL (8.5-10.5); Carbon Dioxide 31 mmol/L (22-29); Chloride 93 mmol/L (98-107); Globulin 3.2 g/dL (1.3-4.6); Glucose 159 mg/dL (65-115); Osmolality Calculated 281 mOsm/kg (285-295); Potassium 3.9 mmol/L (3.5-5.1); Sodium 132 mmol/L (136-145); Total Bilirubin 0.6 mg/dL (0.15-1.2); Total Protein 6.1 g/dL (6.6-8.7)
[2022-06-14 06:14] LABS: Glucose Point of Care 176 mg/dL (70-110)
[2022-06-14] MEDS: levothyroxine 25 mcg Tablet PO (06:31)
[2022-06-14] MEDS: insulin lispro 100 unit/1 mL SUBCUT ×3 (08:42→18:26)
[2022-06-14] MEDS: clopidogrel 75 mg Tablet PO (08:43)
[2022-06-14] MEDS: finasteride 5 mg Tablet PO (08:43)
[2022-06-14] MEDS: guaiFENesin 600 mg Tablet 1200 MG PO ×2 (08:43→18:26)
[2022-06-14] MEDS: gabapentin 100 mg Capsule 200 MG PO ×3 (08:44→21:00)
[2022-06-14] MEDS: insulin glargine 100 units/1 mL 15 UNIT SUBCUT ×2 (08:44→18:27)
[2022-06-14] MEDS: aspirin 81 mg EC Tablet PO (08:44)
[2022-06-14] MEDS: duloxetine 30 mg Capsule PO (08:44)
[2022-06-14] MEDS: methocarbamol 500 mg Tablet PO ×3 (08:44→21:00)
[2022-06-14] MEDS: cholecalciferol (vitamin D3) 1,000 unit Tablet 2000 UNIT PO (08:44)
[2022-06-14] MEDS: tamsulosin 0.4 mg Capsule PO ×2 (08:45→18:26)
[2022-06-14] MEDS: midodrine 5 mg TABLET PO ×3 (08:45→21:01)
[2022-06-14 12:14] LABS: Glucose Point of Care 236 mg/dL (70-110)
[2022-06-14 17:26] LABS: Glucose Point of Care 203 mg/dL (70-110)
--- NOTE | 2022-06-14 18:10 | PM.PN ---
Subjective Subjective: He overall continues to improve. Breathing and oxygen continue to improve. Still having some cough. However, he is very generally deconditioned, required 2 person assist to stand up at the bedside. Has lost quite a bit of stamina and strength. Rash under arms has not been bothering him. However, developed a tinea rash in his groin. Vitals/I&O/Wt Last Vital Signs Temp 98.4 F 06/14/22 15:25 Pulse 88 06/14/22 15:25 Resp 15 06/14/22 15:25 BP 130/67 06/14/22 15:25 Pulse Ox 96 06/14/22 15:25 O2 Del Method 06/14/22 15:25 O2 Flow Rate 2 06/13/22 11:58 06/14/22 06/14/22 06/14/22 06:59 14:59 22:59 Intake Total 240 / 240 Output Total 900 / 1700 Balance -900 / -664 240 / 240 Physical Exam Narrative: Family at bedside Const: COMMON NORMALS: patient oriented x3 and alert GENERAL APPEARANCE: cooperative ORIENTATION/CONSCIOUSNESS: Yes awake OTHER: Stronger, more energetic. Sitting up in a chair. HENMT: COMMON NORMALS: oropharynx normal Neck/C-Spine: COMMON NORMALS: no JVD Resp: COMMON NORMALS: normal respiratory effort and clear to auscultation bilaterally AUSCULTATION: clear to auscultation bilaterally and rhonchi Cardio: COMMON NORMALS: no JVD, regular rhythm, S1 normal heart sound present, S2 normal heart sound present and No murmurs present (Cardio) RHYTHM: regular rhythm HEART SOUNDS: S1 normal heart sound present and S2 normal heart sound present GI: COMMON NORMALS: Normal to inspection, nondistended, normoactive bowel sounds present, Soft to palpation and non-tender PALPATION: Yes Soft to palpation Extremity: COMMON NORMALS: no joint enlargement and no pedal edema Neuro: COMMON NORMALS: patient oriented x3 and moves all extremities SENSORIUM/ORIENTATION: Yes alert Skin: COMMON NORMALS: no rashes or lesions noted GENERAL SKIN EXAM: no rashes or lesions noted RASHES: rashes noted OTHER: Macules and patches on her arms, lateral torso bilaterally. Nothing on the back. No blister ration. No mucosal lesions. Moist appearing erythema of bilateral groin. Urinary Catheter Management: Marx: Cath Placed During This Visit: yes Reason for Continuing Indwelling Catheter: Acute Urinary Retention or Obstruction Urinary Catheter Date of Insertion: 06/10/22 Urinary Catheter Time of Insertion: 22:28 Data : 06/14/22 04:00 06/14/22 04:00 A&P Assessment and plan (1) Fever: Fever has resolved. Hypoxia is improving. His condition overall is improving, less deconditioned. Will check procalcitonin in the morning, if continues to do well, consider de-escalating antibiotics. Fever so far has resolved. Rash persists, but without expansion today. No blisteration. Today appears less intense in coloration. No mucosal lesions. He is positive for COVID-19, which could also explain his symptoms and fever. Mild hypoxia, has been requiring 2 L of oxygen. UA checked as well and without suggestion of UTI. For now empirically on Levaquin, vancomycin. Negative MRSA PCR. Will de-escalate vancomycin. Status: Acute (2) COVID-19: As he is doing well, weaning off oxygen, has not required any treatment. Monitor for any change. Continue VTE prophylaxis. Would follow-up D-dimer before discharge. Status: Acute (3) Rash: Some scaling noted at the rash patches bilaterally on the torso, arms. No exudates. No blisters. No mucosal lesions. Has developed also tinea cruris, it is possible that the lesions on his arms are secondary to tinea as well. Started on Diflucan, nystatin cream. Patches on her arms and on the lateral torso bilaterally. Overall appears less intensely red. Unclear if secondary to acute viral loss, or secondary to medication reaction. Trial of resuming lower dose duloxetine, gabapentin, his chronic medications. Other medications, including amoxicillin, doxycycline, famotidine discontinued. Additional assessment was requested with inflammatory markers. TAE, ANCA pending. Macular nonpruritic known blistering rash under arms, lateral torso, confluent patches in the armpits. No mucosal lesions. Additional medication changes and work-up as above including respiratory viral panel. Hold potential offending medications. Status: Acute (4) Generalized weakness: Continuing to improve. Recheck orthostatic vitals are doing much better. Blood pressures actually been improving, orthostasis still somewhat present, but less so. Systolic blood pressure 8/4 on assessment with decreased from 150 to 139 mmHg. Generalized weakness possibly also related to COVID-19. He is improving. Additionally thought to have had some hypovolemia with diuresis, so Lasix were discontinued, was given a dose of albumin. Lethargy has resolved. However, very deconditioned, requiring 2 person assist to stand up at the bedside. Discussed with him and his daughter, case management, would benefit from rehabilitation at SNF before return home. Status: Acute (5) Syncope and collapse: Orthostatics appear to be gradually improving. Reassess again tomorrow. Adequate serum cortisol. Responded well to midodrine 5 mg 3 times daily. Robaxin at decreased dose. Recheck magnesium. Stress test after discharge. Status: Acute (6) NSTEMI (non-ST elevated myocardial infarction): Status: Acute (7) CHF exacerbation: Off Lasix. Compensated. Monitor volume status. Status: Acute (8) Cellulitis: Status: Acute (9) Spinal stenosis: Status: Acute (10) Falls: Status: Acute (11) Uncontrolled type 2 diabetes mellitus: Status: Acute Qualifiers: Glycemic state: with hyperglycemia Qualified Code(s): E11.65 - Type 2 diabetes mellitus with hyperglycemia (12) Hyperlipidemia: Status: Acute Qualifiers: Hyperlipidemia type: mixed hyperlipidemia Qualified Code(s): E78.2 - Mixed hyperlipidemia (13) Diabetic neuropathy: Status: Acute (14) Coronary artery disease: Status: Acute (15) CHF (congestive heart failure), NYHA class III: Exacerbation has resolved. Further Lasix held. Status: Acute Qualifiers: Congestive heart failure type: unspecified Qualified Code(s): I50.9 - Heart failure, unspecified (16) HTN (hypertension): Status: Acute Qualifiers: Hypertension type: essential hypertension Qualified Code(s): I10 - Essential (primary) hypertension (17) PAD (peripheral artery disease): Status: Acute (18) Tinea cruris: Nystatin cream. Weekly 150 mg Diflucan x5. Status: Acute Plan Thrombocytopenia: With suspect secondary to COVID-19. Diabetic ulcers, bilateral lower extremity -Wound care -Augmentin, doxycycline stopped Type 2 diabetes mellitus with diabetic neuropathy With episodes of hypoglycemia. Glucose has improved. Continue decrease Lantus dose to 15 units twice daily. Low-dose sliding scale. Deconditioning, falls, as above Attestations Medical Necessity Statement*: Continue admission for assessment following syncopal episodes, de-escalation of therapy and reassessment with COVID-19, disposition planning and arrangements with physical deconditioning needing moderate assistance and rehabilitation. 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 Fever R50.9 COVID-19 U07.1 Rash R21 Generalized weakness R53.1 Syncope and collapse R55 NSTEMI (non-ST elevated myocardial infarction) I21.4 CHF exacerbation I50.9 Cellulitis L03.90 Spinal stenosis M48.00 Falls [id number] Uncontrolled type 2 diabetes mellitus E11.65 Glycemic state: with hyperglycemia Hyperlipidemia E78.2 Hyperlipidemia type: mixed hyperlipidemia Diabetic neuropathy E11.40 Coronary artery disease I25.10 CHF (congestive heart failure), NYHA class III I50.9 Congestive heart failure type: unspecified HTN (hypertension) I10 Hypertension type: essential hypertension PAD (peripheral artery disease) I73.9 Tinea cruris B35.6
[2022-06-14] MEDS: nystatin cream 30 gm 1 APPLIC TOPICAL (18:27)
[2022-06-14] MEDS: levofloxacin-dextrose 5 % 750 MG/150 ML PREMIX 150 MG IV (18:28)
[2022-06-14] MEDS: enoxaparin 40 mg/0.4 mL Syringe SUBCUT (19:13)
[2022-06-14] MEDS: zolpidem 5 mg Tablet PO (21:01)
[2022-06-14 21:20] LABS: Glucose Point of Care 201 mg/dL (70-110)
[2022-06-15] VITALS (21 sets, daily range): BP systolic 119–150; BP diastolic 71–82; PULSE 60–89; RESP 16–22; TEMP 36.6–37.3; O2SAT 88–95
[2022-06-15] MEDS: ipratropium-albuterol 3 mL Neb INHALATION ×4 (02:37→19:46)
[2022-06-15 05:26] LABS: Basophils % 0.5 %; Eosinophils # 0.1 10^3/uL (0.0-0.8); Eosinophils % 0.9 %; Hematocrit 42.9 % (42.0-52.0); Hemoglobin 14.5 g/dL (11.7-16.6); Lymphocytes # 1.6 10^3/uL (0.8-4.8); Lymphocytes % 27.5 %; Mean Corpuscular HGB Conc 33.8 g/dL (30.0-36.0); Mean Corpuscular Hemoglobin 30.5 pg (28.0-34.0); Mean Corpuscular Volume 90.1 fl (80-94); Mean Platelet Volume 10.7 fL (7.4-10.4); Monocytes % 16.6 %; Neutrophils # 3.07 10^3/uL (1.8-7.7); Neutrophils % 53.8 %; Nucleated Red Blood Cells % 0 %; Platelet Count 121 10^3/cmm (130-400); Red Blood Count 4.76 10^6/uL (4.1-5.3); Red Cell Distribution Width 13.2 % (12.1-15.1); White Blood Count 5.7 10^3/uL (4.0-10.0)
[2022-06-15 05:36] LABS: D Dimer 0.94 ug/mIFEU (0-0.59)
[2022-06-15 05:54] LABS: Alanine Aminotransferase 38 U/L (0-41); Albumin Level 2.8 g/dL (3.5-5.2); Alkaline Phosphatase 131 IU/L (40-130); Anion Gap 8.6 (5-19); Aspartate Amino Transferase 58 U/L (0-40); Blood Urea Nitrogen 19 mg/dL (8-23); Calcium 8.7 mg/dL (8.5-10.5); Carbon Dioxide 31 mmol/L (22-29); Chloride 96 mmol/L (98-107); Globulin 3.2 g/dL (1.3-4.6); Glucose 116 mg/dL (65-115); Magnesium 1.5 mg/dL (1.7-2.3); Osmolality Calculated 277 mOsm/kg (285-295); Potassium 3.6 mmol/L (3.5-5.1); Sodium 132 mmol/L (136-145); Total Bilirubin 0.5 mg/dL (0.15-1.2)
[2022-06-15] MEDS: levothyroxine 25 mcg Tablet PO (06:27)
[2022-06-15 06:39] LABS: Glucose Point of Care 121 mg/dL (70-110)
[2022-06-15] MEDS: gabapentin 100 mg Capsule 200 MG PO ×3 (08:35→21:20)
[2022-06-15] MEDS: cholecalciferol (vitamin D3) 1,000 unit Tablet 2000 UNIT PO (08:35)
[2022-06-15] MEDS: finasteride 5 mg Tablet PO (08:36)
[2022-06-15] MEDS: clopidogrel 75 mg Tablet PO (08:36)
[2022-06-15] MEDS: methocarbamol 500 mg Tablet PO ×3 (08:36→21:21)
[2022-06-15] MEDS: midodrine 5 mg TABLET PO ×3 (08:36→21:21)
[2022-06-15] MEDS: guaiFENesin 600 mg Tablet 1200 MG PO ×2 (08:36→17:46)
[2022-06-15] MEDS: duloxetine 30 mg Capsule PO (08:36)
[2022-06-15] MEDS: tamsulosin 0.4 mg Capsule PO ×2 (08:36→17:46)
[2022-06-15] MEDS: insulin glargine 100 units/1 mL 15 UNIT SUBCUT ×2 (08:37→17:47)
[2022-06-15] MEDS: nystatin cream 30 gm 1 APPLIC TOPICAL ×2 (08:42→17:48)
[2022-06-15] MEDS: aspirin 81 mg EC Tablet PO (10:20)
[2022-06-15] MEDS: magnesium sulfate premix 2 GM/50 ML PIGGYBACK IV (10:20)
--- NOTE | 2022-06-15 10:29 | PC.SOCIAL ---
IMM Updated Updated pt & daughter on IMM. No questions voiced. Provided pt a copy. Initialed, dated, & timed copy in chart.
[2022-06-15 11:12] LABS: Glucose Point of Care 171 mg/dL (70-110)
[2022-06-15] MEDS: insulin lispro 100 unit/1 mL SUBCUT (12:12)
[2022-06-15 17:17] LABS: Glucose Point of Care 135 mg/dL (70-110)
--- NOTE | 2022-06-15 18:13 | P.PN_ITS ---
Subjective Subjective: He states he is doing all right today. Still has intermittent cough. He is not bothered by the rash under his arms. He is having a rash in his groin and on his bottom which his daughter has been keeping a close eye on and she is worried that it does not worsen. Vitals/I&O/Wt Last Vital Signs Temp 97.9 F 06/15/22 16:00 Pulse 85 06/15/22 16:00 Resp 16 06/15/22 16:00 BP 150/77 06/15/22 16:00 Pulse Ox 88 L 06/15/22 16:00 O2 Del Method 06/15/22 16:00 O2 Flow Rate 2 06/13/22 11:58 06/15/22 06/15/22 06/15/22 06:59 14:59 22:59 Intake Total 340 / 970 530 / 530 Output Total 700 / 1350 400 / 400 Balance -360 / -380 130 / 130 Weight last 48 hrs Weight 99.7 kg Physical Exam Narrative: Daughter at bedside Const: COMMON NORMALS: patient oriented x3 and alert GENERAL APPEARANCE: cooperative ORIENTATION/CONSCIOUSNESS: Yes awake OTHER: Stronger, more energetic. Sitting up in a chair. HENMT: COMMON NORMALS: oropharynx normal Neck/C-Spine: COMMON NORMALS: no JVD Resp: COMMON NORMALS: normal respiratory effort and clear to auscultation bilaterally AUSCULTATION: clear to auscultation bilaterally and rhonchi Cardio: COMMON NORMALS: no JVD, regular rhythm, S1 normal heart sound present, S2 normal heart sound present and No murmurs present (Cardio) RHYTHM: regular rhythm HEART SOUNDS: S1 normal heart sound present and S2 normal heart sound present GI: COMMON NORMALS: Normal to inspection, nondistended, normoactive bowel sounds present, Soft to palpation and non-tender PALPATION: Yes Soft to palpation Extremity: COMMON NORMALS: no joint enlargement and no pedal edema Neuro: COMMON NORMALS: patient oriented x3 and moves all extremities SENSORIUM/ORIENTATION: Yes alert Skin: COMMON NORMALS: no rashes or lesions noted GENERAL SKIN EXAM: no rashes or lesions noted RASHES: rashes noted OTHER: Macules and patches on her arms, lateral torso bilaterally. Nothing on the back. No blister ration. No mucosal lesions. Moist appearing erythema of bilateral groin and lower buttocks Urinary Catheter Management: Marx: Cath Placed During This Visit: yes Reason for Continuing Indwelling Catheter: Acute Urinary Retention or Obstruction Urinary Catheter Date of Insertion: 06/10/22 Urinary Catheter Time of Insertion: 22:28 Data : 06/15/22 05:00 06/15/22 05:00 A&P Assessment and plan (1) Fever: Fever improved. Last fever episode 8/ morning. Likely related to COVID-19. Hypoxia is improving. His condition overall is improving, less deconditioned. Will check procalcitonin in the morning, if continues to do well, consider de- escalating antibiotics. Rash persists, but without expansion today. No blisteration. Today appears less intense in coloration. No mucosal lesions. He is positive for COVID-19, which could also explain his symptoms and fever. Mild hypoxia, has been requiring 2 L of oxygen. Weaning off oxygen. UA checked as well and without suggestion of UTI. For now empirically on Levaquin. Negative MRSA PCR. Vancomycin was de- escalated. Nystatin cream, Diflucan for tinea cruris. Status: Acute (2) COVID-19: As he is doing well, weaning off oxygen, has not required any treatment. Monitor for any change. Continue VTE prophylaxis. Would follow-up D-dimer before discharge. Status: Acute (3) Rash: Some scaling noted at the rash patches bilaterally on the torso, arms. No exudates. No blisters. No mucosal lesions. Has developed also tinea cruris, it is possible that the lesions on his arms are secondary to tinea as well. Started on Diflucan, nystatin cream. Patches on her arms and on the lateral torso bilaterally. Overall appears less intensely red. Unclear if secondary to acute viral loss, or secondary to medication reaction. Trial of resuming lower dose duloxetine, gabapentin, his chronic medications. So far tolerating them well without worsening rash. Other medications, including amoxicillin, doxycycline, famotidine discontinued. Additional assessment was requested with inflammatory markers. TAE, ANCA pending. Macular nonpruritic known blistering rash under arms, lateral torso, confluent patches in the armpits. No mucosal lesions. Additional medication changes and work-up as above including respiratory viral panel. Hold potential offending medications. Status: Acute (4) Generalized weakness: Requiring 2 person assist. Significantly deconditioned. Arrangements in process for rehabilitation at [facility] prior to return home. Severe orthostatic hypotension prior to hospitalization now much better. Generalized weakness possibly also related to COVID-19. He is improving. Again hypomagnesemia, replaced. Recheck. CHF compensated. Off diuretic. Lethargy has resolved. However, very deconditioned, requiring 2 person assist to stand up at the bedside. Discussed with him and his daughter, case management, would benefit from rehabilitation at SNF before return home. Status: Acute (5) Syncope and collapse: Orthostatics much better with midodrine. Adequate serum cortisol. Responded well to midodrine 5 mg 3 times daily. Robaxin at decreased dose. Consider stress test after discharge. Status: Acute (6) NSTEMI (non-ST elevated myocardial infarction): Status: Acute (7) CHF exacerbation: Off Lasix. Compensated. Monitor volume status. Status: Acute (8) Cellulitis: Status: Acute (9) Spinal stenosis: Status: Acute (10) Falls: Status: Acute (11) Uncontrolled type 2 diabetes mellitus: Status: Acute Qualifiers: Glycemic state: with hyperglycemia Qualified Code(s): E11.65 - Type 2 diabetes mellitus with hyperglycemia (12) Hyperlipidemia: Status: Acute Qualifiers: Hyperlipidemia type: mixed hyperlipidemia Qualified Code(s): E78.2 - Mixed hyperlipidemia (13) Diabetic neuropathy: Status: Acute (14) Coronary artery disease: Status: Acute (15) CHF (congestive heart failure), NYHA class III: Exacerbation has resolved. Further Lasix held. Status: Acute Qualifiers: Congestive heart failure type: unspecified Qualified Code(s): I50.9 - Heart failure, unspecified (16) HTN (hypertension): Status: Acute Qualifiers: Hypertension type: essential hypertension Qualified Code(s): I10 - Essential (primary) hypertension (17) PAD (peripheral artery disease): Status: Acute (18) Tinea cruris: Nystatin cream. Weekly 150 mg Diflucan x5. Keep dry. Please provide instructions for SNF. Status: Acute Plan Thrombocytopenia: With suspect secondary to COVID-19. Diabetic ulcers, bilateral lower extremity -Wound care -Augmentin, doxycycline stopped Type 2 diabetes mellitus with diabetic neuropathy With episodes of hypoglycemia. Glucose has improved. Continue decrease Lantus dose to 15 units twice daily. Low-dose sliding scale. Deconditioning, falls, as above Attestations Medical Necessity Statement*: Continue admission for assessment of management of generalized weakness, after syncope and collapse, COVID-19, weaning off oxygen support, therapy for deconditioning requiring 2 person assist, arrangements for [facility] facility rehabilitation. 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 Fever R50.9 COVID-19 U07.1 Rash R21 Generalized weakness R53.1 Syncope and collapse R55 NSTEMI (non-ST elevated myocardial infarction) I21.4 CHF exacerbation I50.9 Cellulitis L03.90 Spinal stenosis M48.00 Falls [id number] Uncontrolled type 2 diabetes mellitus E11.65 Glycemic state: with hyperglycemia Hyperlipidemia E78.2 Hyperlipidemia type: mixed hyperlipidemia Diabetic neuropathy E11.40 Coronary artery disease I25.10 CHF (congestive heart failure), NYHA class III I50.9 Congestive heart failure type: unspecified HTN (hypertension) I10 Hypertension type: essential hypertension PAD (peripheral artery disease) I73.9 Tinea cruris B35.6
[2022-06-15] MEDS: levofloxacin-dextrose 5 % 750 MG/150 ML PREMIX 100 MG IV (18:24)
[2022-06-15] MEDS: enoxaparin 40 mg/0.4 mL Syringe SUBCUT (18:28)
[2022-06-15] MEDS: zolpidem 5 mg Tablet PO (21:21)
[2022-06-15 21:28] LABS: Glucose Point of Care 180 mg/dL (70-110)
[2022-06-16] VITALS (16 sets, daily range): BP systolic 102–137; BP diastolic 61–74; PULSE 68–89; RESP 16–18; TEMP 36.3–36.7; O2SAT 92–96
[2022-06-16] MEDS: ipratropium-albuterol 3 mL Neb INHALATION ×3 (02:01→15:32)
[2022-06-16 04:37] LABS: Basophils % 0.2 %; Eosinophils # 0.1 10^3/uL (0.0-0.8); Eosinophils % 0.8 %; Hematocrit 41.4 % (42.0-52.0); Lymphocytes # 1.4 10^3/uL (0.8-4.8); Mean Corpuscular HGB Conc 33.8 g/dL (30.0-36.0); Mean Corpuscular Hemoglobin 30.4 pg (28.0-34.0); Mean Platelet Volume 10.9 fL (7.4-10.4); Monocytes # 0.9 10^3/uL (0.2-0.9); Monocytes % 14.6 %; Neutrophils # 3.78 10^3/uL (1.8-7.7); Neutrophils % 61.3 %; Nucleated Red Blood Cells % 0 %; Platelet Count 123 10^3/cmm (130-400); Red Cell Distribution Width 13.3 % (12.1-15.1); White Blood Count 6.2 10^3/uL (4.0-10.0)
[2022-06-16 05:05] LABS: Alanine Aminotransferase 41 U/L (0-41); Albumin Level 2.7 g/dL (3.5-5.2); Alkaline Phosphatase 125 IU/L (40-130); Anion Gap 11.5 (5-19); Aspartate Amino Transferase 62 U/L (0-40); Blood Urea Nitrogen 19 mg/dL (8-23); Calcium 8.7 mg/dL (8.5-10.5); Carbon Dioxide 30 mmol/L (22-29); Chloride 94 mmol/L (98-107); Globulin 3.2 g/dL (1.3-4.6); Glucose 111 mg/dL (65-115); Magnesium 1.6 mg/dL (1.7-2.3); Osmolality Calculated 277 mOsm/kg (285-295); Potassium 3.5 mmol/L (3.5-5.1); Sodium 132 mmol/L (136-145); Total Bilirubin 0.5 mg/dL (0.15-1.2); Total Protein 5.9 g/dL (6.6-8.7)
[2022-06-16] MEDS: levothyroxine 25 mcg Tablet PO (05:42)
[2022-06-16 06:41] LABS: Glucose Point of Care 113 mg/dL (70-110)
[2022-06-16] MEDS: insulin glargine 100 units/1 mL 15 UNIT SUBCUT ×2 (09:22→18:01)
[2022-06-16] MEDS: cholecalciferol (vitamin D3) 1,000 unit Tablet 2000 UNIT PO (09:22)
[2022-06-16] MEDS: tamsulosin 0.4 mg Capsule PO ×2 (09:22→18:01)
[2022-06-16] MEDS: aspirin 81 mg EC Tablet PO (09:22)
[2022-06-16] MEDS: methocarbamol 500 mg Tablet PO ×3 (09:22→20:33)
[2022-06-16] MEDS: duloxetine 30 mg Capsule PO (09:22)
[2022-06-16] MEDS: finasteride 5 mg Tablet PO (09:22)
[2022-06-16] MEDS: clopidogrel 75 mg Tablet PO (09:22)
[2022-06-16] MEDS: gabapentin 100 mg Capsule 200 MG PO ×3 (09:22→20:33)
[2022-06-16] MEDS: midodrine 5 mg TABLET PO ×3 (09:22→20:33)
[2022-06-16] MEDS: guaiFENesin 600 mg Tablet 1200 MG PO ×2 (09:22→18:01)
[2022-06-16] MEDS: nystatin cream 30 gm 1 APPLIC TOPICAL ×2 (09:23→18:02)
[2022-06-16 11:14] LABS: Glucose Point of Care 250 mg/dL (70-110)
[2022-06-16] MEDS: insulin lispro 100 unit/1 mL SUBCUT ×2 (12:50→18:01)
--- NOTE | 2022-06-16 15:40 | P.PN_ITS ---
Subjective Subjective: Feels that he continues to have some bouts of cough in conversation. Afebrile. Hemodynamically stable. Saturating 92 to 93% on room air today. Antibiotics discontinued Vitals/I&O/Wt Last Vital Signs Temp 97.6 F 06/16/22 15:36 Pulse 86 06/16/22 15:36 Resp 17 06/16/22 15:36 BP 102/61 06/16/22 15:36 Pulse Ox 92 06/16/22 15:36 O2 Del Method 06/16/22 15:33 O2 Flow Rate 2 06/15/22 20:00 06/16/22 06/16/22 06/16/22 06:59 14:59 22:59 Intake Total 0 / 870 390 / 390 Output Total 200 / 800 Balance -200 / 70 390 / 390 Weight last 48 hrs Weight 99.7 kg Physical Exam Narrative: General: No acute distress, AO x3 HEENT: PERRLA, pupils bilaterally equal and reactive, pallors not present Chest: Scattered wheezing scattered wheezing bilaterally CVS: S1-S2 regular, no murmurs, no tachycardia, no gallops, no rubs Abdomen: Soft, nontender, no organomegaly, bowel sounds present Neuro: No focal deficits, no facial deformity, AO x3, power 5/5 in all limbs Urinary Catheter Management: Marx: Cath Placed During This Visit: yes Reason for Continuing Indwelling Catheter: Acute Urinary Retention or Obstruction Urinary Catheter Date of Insertion: 06/10/22 Urinary Catheter Time of Insertion: 22:28 Data : 06/16/22 03:20 06/16/22 03:20 A&P Assessment and plan (1) Fever: Fever improved. Last fever episode 06/14 morning. Likely related to COVID-19. Hypoxia is improving. His condition overall is improving, less deconditioned. Discontinue Levaquin discontinue levofloxacin today UA checked as well and without suggestion of UTI. Nystatin cream, Diflucan for tinea cruris. Status: Acute (2) COVID-19: As he is doing well, weaning off oxygen, has not required any treatment. Monitor for any change. Continue VTE prophylaxis. Would follow-up D-dimer before discharge. Status: Acute (3) Rash: Some scaling noted at the rash patches bilaterally on the torso, arms. No exudates. No blisters. No mucosal lesions. Has developed also tinea cruris, it is possible that the lesions on his arms are secondary to tinea as well. Started on Diflucan, nystatin cream. Rash is stable Status: Acute (4) Generalized weakness: Requiring 2 person assist. Significantly deconditioned. Arrangements in process for rehabilitation at SNF prior to return home. Severe orthostatic hypotension prior to hospitalization now much better. Generalized weakness possibly also related to COVID-19. He is improving. CHF compensated. Off diuretic. Lethargy has resolved. However, very deconditioned, requiring 2 person assist to stand up at the bedside. Discussed with him and his daughter, case management, would benefit from rehabilitation at SNF before return home. Status: Acute (5) Syncope and collapse: Orthostatics much better with midodrine. Adequate serum cortisol. Responded well to midodrine 5 mg 3 times daily. Robaxin at decreased dose. Consider stress test after discharge. Status: Acute (6) NSTEMI (non-ST elevated myocardial infarction): Status: Acute (7) CHF exacerbation: Off Lasix. Compensated. Monitor volume status. Status: Acute (8) Cellulitis: Status: Acute (9) Spinal stenosis: Status: Acute (10) Falls: Status: Acute (11) Uncontrolled type 2 diabetes mellitus: Status: Acute Qualifiers: Glycemic state: with hyperglycemia Qualified Code(s): E11.65 - Type 2 diabetes mellitus with hyperglycemia (12) Hyperlipidemia: Status: Acute Qualifiers: Hyperlipidemia type: mixed hyperlipidemia Qualified Code(s): E78.2 - Mixed hyperlipidemia (13) Diabetic neuropathy: Status: Acute (14) Coronary artery disease: Status: Acute (15) CHF (congestive heart failure), NYHA class III: Exacerbation has resolved. Further Lasix held. Status: Acute Qualifiers: Congestive heart failure type: unspecified Qualified Code(s): I50.9 - Heart failure, unspecified (16) HTN (hypertension): Status: Acute Qualifiers: Hypertension type: essential hypertension Qualified Code(s): I10 - Essential (primary) hypertension (17) PAD (peripheral artery disease): Status: Acute (18) Tinea cruris: Nystatin cream. Weekly 150 mg Diflucan x5. Keep dry. Please provide instructions for SNF. Status: Acute Plan Thrombocytopenia: With suspect secondary to COVID-19. Diabetic ulcers, bilateral lower extremity -Wound care -Augmentin, doxycycline stopped Type 2 diabetes mellitus with diabetic neuropathy With episodes of hypoglycemia. Glucose has improved. Continue decrease Lantus dose to 15 units twice daily. Low-dose sliding scale. 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 [facility] Fwd Diagnoses Fever R50.9 COVID-19 U07.1 Rash R21 Generalized weakness R53.1 Syncope and collapse R55 NSTEMI (non-ST elevated myocardial infarction) I21.4 CHF exacerbation I50.9 Cellulitis L03.90 Spinal stenosis M48.00 Falls [id number].XXXA Uncontrolled type 2 diabetes mellitus E11.65 Glycemic state: with hyperglycemia Hyperlipidemia E78.2 Hyperlipidemia type: mixed hyperlipidemia Diabetic neuropathy E11.40 Coronary artery disease I25.10 CHF (congestive heart failure), NYHA class III I50.9 Congestive heart failure type: unspecified HTN (hypertension) I10 Hypertension type: essential hypertension PAD (peripheral artery disease) I73.9 Tinea cruris B35.6
[2022-06-16 17:09] LABS: Glucose Point of Care 189 mg/dL (70-110)
[2022-06-16] MEDS: enoxaparin 40 mg/0.4 mL Syringe SUBCUT (18:01)
--- NOTE | 2022-06-16 19:30 | PC.NURSE ---
SHIFT SUMMARY: PT HAS HAD A GOOD UNEVENTFUL SHIFT. PT HAS HAD NO COMPLAINTS OF PAIN. HE HAS BEEN UP TO THE CHAIR FOR HALF OF MY SHIFT AND TOLERATED THIS WELL. PT HAS NO REQUESTS AND NO COMPLAINTS OF PAIN. HE IS RESTING COMFORTABLY IN BED. REPORT TO CHUCK ORTIZ.
[2022-06-16] MEDS: zolpidem 5 mg Tablet PO (20:33)
[2022-06-16 21:39] LABS: Glucose Point of Care 148 mg/dL (70-110)
[2022-06-17] VITALS (11 sets, daily range): BP systolic 124–146; BP diastolic 67–77; PULSE 64–95; RESP 16–20; TEMP 35.9–37; O2SAT 91–97
[2022-06-17] MEDS: ipratropium-albuterol 3 mL Neb INHALATION ×3 (01:45→14:47)
[2022-06-17 04:54] LABS: Basophils % 0.4 %; Eosinophils # 0.1 10^3/uL (0.0-0.8); Hemoglobin 14.2 g/dL (11.7-16.6); Lymphocytes # 1.3 10^3/uL (0.8-4.8); Lymphocytes % 24.3 %; Mean Corpuscular HGB Conc 34.6 g/dL (30.0-36.0); Mean Corpuscular Hemoglobin 30.6 pg (28.0-34.0); Mean Corpuscular Volume 88.4 fl (80-94); Mean Platelet Volume 10.6 fL (7.4-10.4); Monocytes # 0.8 10^3/uL (0.2-0.9); Monocytes % 15.1 %; Neutrophils # 3.09 10^3/uL (1.8-7.7); Nucleated Red Blood Cells % 0 %; Platelet Count 121 10^3/cmm (130-400); Red Blood Count 4.64 10^6/uL (4.1-5.3); Red Cell Distribution Width 13.4 % (12.1-15.1); White Blood Count 5.5 10^3/uL (4.0-10.0)
[2022-06-17 05:24] LABS: Alanine Aminotransferase 63 U/L (0-41); Albumin Level 2.5 g/dL (3.5-5.2); Alkaline Phosphatase 149 IU/L (40-130); Anion Gap 11.6 (5-19); Aspartate Amino Transferase 90 U/L (0-40); Blood Urea Nitrogen 16 mg/dL (8-23); Calcium 8.5 mg/dL (8.5-10.5); Carbon Dioxide 29 mmol/L (22-29); Chloride 96 mmol/L (98-107); Globulin 3.4 g/dL (1.3-4.6); Glucose 126 mg/dL (65-115); Magnesium 1.4 mg/dL (1.7-2.3); Osmolality Calculated 279 mOsm/kg (285-295); Potassium 3.6 mmol/L (3.5-5.1); Sodium 133 mmol/L (136-145); Total Bilirubin 0.5 mg/dL (0.15-1.2); Total Protein 5.9 g/dL (6.6-8.7)
[2022-06-17] MEDS: levothyroxine 25 mcg Tablet PO (06:37)
[2022-06-17 06:38] LABS: Glucose Point of Care 320 mg/dL (70-110)
[2022-06-17] MEDS: guaiFENesin 600 mg Tablet 1200 MG PO ×2 (08:31→18:01)
[2022-06-17] MEDS: methocarbamol 500 mg Tablet PO ×2 (08:31→15:24)
[2022-06-17] MEDS: duloxetine 30 mg Capsule PO (08:31)
[2022-06-17] MEDS: gabapentin 100 mg Capsule 200 MG PO ×2 (08:31→15:24)
[2022-06-17] MEDS: finasteride 5 mg Tablet PO (08:31)
[2022-06-17] MEDS: insulin glargine 100 units/1 mL 15 UNIT SUBCUT ×2 (08:32→18:04)
[2022-06-17] MEDS: midodrine 5 mg TABLET PO (08:32)
[2022-06-17] MEDS: cholecalciferol (vitamin D3) 1,000 unit Tablet 2000 UNIT PO (08:32)
[2022-06-17] MEDS: clopidogrel 75 mg Tablet PO (08:32)
[2022-06-17] MEDS: nystatin cream 30 gm 1 APPLIC TOPICAL (08:32)
[2022-06-17] MEDS: aspirin 81 mg EC Tablet PO (08:32)
[2022-06-17] MEDS: tamsulosin 0.4 mg Capsule PO ×2 (08:32→18:02)
[2022-06-17] MEDS: insulin lispro 100 unit/1 mL SUBCUT ×2 (08:50→18:01)
[2022-06-17 11:31] LABS: Glucose Point of Care 123 mg/dL (70-110)
--- NOTE | 2022-06-17 12:56 | P.DS_ITS ---
Discharge Providers Date of Admission: 06/06/22 12:51 Date of Discharge: June 17, 2022 Attending Provider at Admission: Adonay Chacon MD Attending Provider at Discharge: Concepcion Newell MD Primary Care Provider: Vlad Corona DO Diagnoses at Discharge Discharge Diagnosis (1) Fever: Status: Acute (2) COVID-19: Status: Acute (3) Rash: Status: Acute (4) Generalized weakness: Status: Acute (5) Syncope and collapse: Status: Acute (6) NSTEMI (non-ST elevated myocardial infarction): Status: Acute (7) CHF exacerbation: Status: Acute (8) Cellulitis: Status: Acute (9) Spinal stenosis: Status: Acute (10) Falls: Status: Acute (11) Uncontrolled type 2 diabetes mellitus: Status: Acute Qualifiers: Glycemic state: with hyperglycemia Qualified Code(s): E11.65 - Type 2 diabetes mellitus with hyperglycemia (12) Hyperlipidemia: Status: Acute Qualifiers: Hyperlipidemia type: mixed hyperlipidemia Qualified Code(s): E78.2 - Mixed hyperlipidemia (13) Diabetic neuropathy: Status: Acute (14) Coronary artery disease: Status: Acute (15) CHF (congestive heart failure), NYHA class III: Status: Acute Qualifiers: Congestive heart failure type: unspecified Qualified Code(s): I50.9 - Heart failure, unspecified (16) HTN (hypertension): Status: Acute Qualifiers: Hypertension type: essential hypertension Qualified Code(s): I10 - Essential (primary) hypertension (17) PAD (peripheral artery disease): Status: Acute (18) Tinea cruris: Status: Acute Reason for Visit Reason for Visit: Fell, Hit head, Weakness Hospital Course Hospital Course [id number] gentleman with diabetes, CHF, CAD, reportedly not taking his medications well, admitted originally after syncope, collapse, initially thought possibly overdosed on insulin, initially some transient reduced responsiveness with low blood glucose which resolved, but also noted to have severe orthostatic hypotension. Was started on midodrine with blood pressure initially improving. Then again reduced responsiveness, generally very weak, started to have some productive cough. Low-grade fevers. Then also developed macular rash under his arms, lateral torso, progressive to some patches. No blisters, no mucosal lesions. He returned positive for COVID 19 on PCR testing. He was transiently on 2 L of oxygen, but improving, so not started on any COVID-specific therapies. Oxygenation improved and he has remained on room air..He received an empiric course of Levaquin for possiblity of bacterial pneumonia. He was noted to have tinea cruris in his groin, buttocks and axilla for which he received Fluconazole. His mental status is improved significantly during admission. He is feeling much better. He elected to return home with his family. Following changes were made to his medications: Midodrine 5 mg 3 times daily added Levothyroxine 25 mg p.o. daily added elevated TSH and low free T4 concerning for hypothyroidism. Lantus was cut back to 20 units twice daily to avoid hypoglycemia. Gabapentin was reduced from 300 mg 3 times daily to 200 mg 3 times daily Meloxicam was discontinued. Lab abnormalities that will need follow-up as outpatient are abnormal liver function test. May be related to acute viral illness versus dehydration. Recommend repeating with primary care provider within 1 week. Physical Exam Narrative: General: No acute distress, AO x3, deconditioned HEENT: PERRLA, pupils bilaterally equal and reactive, pallors not present Chest: Normal vesicular breath sounds, no added sounds, equal good air entry bilaterally CVS: S1-S2 regular, no murmurs, no tachycardia, no gallops, no rubs Abdomen: Soft, nontender, no organomegaly, bowel sounds present Neuro: No focal deficits Urinary Catheter Management: Marx: Cath Placed During This Visit: yes Reason for Continuing Indwelling Catheter: Other Urinary Catheter Date of Insertion: 06/10/22 Urinary Catheter Time of Insertion: 22:28 Discharge Data Studies Completed and Pending Completed Studies During Hospitalization Category Date Time Status CT cervical spin wo con* [id number] Stat Cat Scan 06/06/22 07:[address] head wo con* [id number] Urgent Cat Scan 06/06/22 07:[address] lumbar spine wo con* [id number] Urgent Cat Scan 06/06/22 08:03 Completed CXRP [XR chest 1V portable [id number]] Routine Exams 06/10/22 08:15 Completed XR chest 1V portable [id number] Urgent Exams 06/06/22 07:57 Completed XR hip BI 2V wo/w pel [id number] Stat Exams 06/06/22 12:51 Completed CV carotid duplex BI* [id number] Urgent Ultrasound 06/06/22 19:15 Completed CV. echo complete* [id number] Routine Ultrasound 06/07/22 19:15 Completed US venous duplex lower extremity bilat [CV venous Ultrasound 06/06/22 19:15 [place] [id number]] Urgent Pending at discharge Category Date Time Status TAE SCREEN [TAE Profile Rheumatology] Routine Lab 06/11/22 13:19 Results ANCA [Anti-Neutrophil Cytoplasmic AB] Routine Lab 06/11/22 19:26 Received Clostridioides Difficile PCR Routine Lab 06/14/22 19:56 Ordered Complete Blood Count w/Auto AM LABS Lab 06/18/22 04:00 Ordered Comprehensive Metabolic Panel AM LABS Lab 06/18/22 04:00 Ordered Respiratory Viral Panel PCR Routine Lab 06/11/22 Received Stool Culture, Bacterial [Enteric Bacterial Panel by Lab 06/14/22 19:56 Ordered PCR] Routine stool Ova and Parasite [Enteric Parasite Panel by PCR] Lab 06/14/22 19:56 Ordered Routine Radiology Impressions Cervical Spine CT 06/06/22 07:50 IMPRESSION: 1. No acute cervical spine fracture. Multilevel central and foraminal stenoses and osteophytes. 2. Large anterior osteophytes from C4 to C7. 3. Small erosions at the odontoid tip. Head CT 06/06/22 07:50 IMPRESSION: 1. No acute intracranial hemorrhage or edema. 2. Moderate atrophy and small vessel ischemic disease. 3. No fracture. Lumbar Spine CT 06/06/22 08:03 IMPRESSION: 1. No acute lumbar spine fracture identified. 2. Severe central, bilateral subarticular recess and moderate foraminal stenosis at L4-5. 3. Mild central and bilateral subarticular recess stenosis at L5-S1 and moderate foraminal stenosis. 4. Mild central, bilateral foraminal subarticular recess stenosis at L3-4. Hip/Pelvis X-Ray 06/06/22 12:51 IMPRESSION: 1. [id number] DJD and osteopenia. No fracture or other significant finding. AP view the left hip shows no acute fracture. Mild DJD of the joint compartment. Old fracture of the greater trochanter. Osteopenia. IMPRESSION: 1. Old displaced greater trochanteric fracture. No acute fracture seen. 2. Mild DJD. Osteopenia. Carotid Doppler Study 06/06/22 19:15 IMPRESSION: No carotid arterial stenosis. REFERENCES: SRU CRITERIA. The degree of internal carotid artery stenosis is based on criteria defined by the Society of Radiologists in Ultrasound (SRU). Normal is no stenosis. Mild is less than 50% stenosis. Moderate is 50-69% stenosis. Severe is greater than 69% stenosis to near occlusion. Near occlusion is a markedly narrowed lumen. Total occlusion is no detectable patent lumen. Venous Duplex 06/06/22 19:15 IMPRESSION: No evidence of deep vein thrombosis. Chest X-Ray 06/10/22 08:15 IMPRESSION: 1. Mild interstitial lung disease. 2. No focal pneumonia. 3. No fluid overload. Laboratory Results WBC 5.5 10^3/uL (4.0-10.0) 06/17/22 04:45 RBC 4.64 10^6/uL (4.1-5.3) 06/17/22 04:45 Hgb 14.2 g/dL (11.7-16.6) 06/17/22 04:45 Hct 41.0 % (42.0-52.0) L 06/17/22 04:45 MCV 88.4 fl (80-94) 06/17/22 04:45 MCH 30.6 pg (28.0-34.0) 06/17/22 04:45 MCHC 34.6 g/dL (30.0-36.0) 06/17/22 04:45 RDW 13.4 % (12.1-15.1) 06/17/22 04:45 Plt Count 121 10^3/cmm (130-400) L 06/17/22 04:45 MPV 10.6 fL (7.4-10.4) H 06/17/22 04:45 Neut % (Auto) 56.0 % 06/17/22 04:45 Lymph % (Auto) 24.3 % 06/17/22 04:45 Mcpherson % (Auto) 15.1 % 06/17/22 04:45 Eos % (Auto) 2.0 % 06/17/22 04:45 Baso % (Auto) 0.4 % 06/17/22 04:45 Neut # (Auto) 3.09 10^3/uL (1.8-7.7) 06/17/22 04:45 Lymph # (Auto) 1.3 10^3/uL (0.8-4.8) 06/17/22 04:45 Mcpherson # (Auto) 0.8 10^3/uL (0.2-0.9) 06/17/22 04:45 Eos # (Auto) 0.1 10^3/uL (0.0-0.8) 06/17/22 04:45 Baso # (Auto) 0.0 10^3/uL (0.0-0.1) 06/17/22 04:45 Nucleated RBC % (auto) 0 % 06/17/22 04:45 Nucleated RBCs # 0.0 /100WBC 06/17/22 04:45 ESR 28 mm/hr (0-10) H 06/11/22 05:36 D-Dimer 0.94 ug/mIFEU (0-0.59) H 06/15/22 05:00 Sodium 133 mmol/L (136-145) L 06/17/22 04:45 Potassium 3.6 mmol/L (3.5-5.1) 06/17/22 04:45 Chloride 96 mmol/L (98-107) L 06/17/22 04:45 Carbon Dioxide 29 mmol/L (22-29) 06/17/22 04:45 Anion Gap 11.6 (5-19) 06/17/22 04:45 BUN 16 mg/dL (8-23) 06/17/22 04:45 Creatinine 0.6 mg/dL (0.7-1.2) L 06/17/22 04:45 GFR Calculation Not Reportable 06/17/22 04:45 Glucose 126 mg/dL (65-115) H 06/17/22 04:45 POC Glucose 123 mg/dL (70-110) H 06/17/22 11:19 Estimat Average Glucose 171 06/07/22 04:27 Hemoglobin A1c 7.6 % (4.0-6.0) H 06/07/22 04:27 Calculated Osmolality 279 mOsm/kg (285-295) L 06/17/22 04:45 Calcium 8.5 mg/dL (8.5-10.5) 06/17/22 04:45 Phosphorus 4.1 mg/dL (2.5-4.5) 06/09/22 04:25 Magnesium 1.4 mg/dL (1.7-2.3) L 06/17/22 04:45 Total Bilirubin 0.5 mg/dL (0.15-1.2) 06/17/22 04:45 AST 90 U/L (0-40) H 06/17/22 04:45 ALT 63 U/L (0-41) H 06/17/22 04:45 Alkaline Phosphatase 149 IU/L (40-130) H 06/17/22 04:45 Creatine Kinase 425 U/L (39-308) H* 06/12/22 05:45 Creatine Kinase Cancelled 06/12/22 05:45 Troponin T Baseline 31 ng/L (0-15) H 06/06/22 08:05 Troponin T 120 Minute 28.85 ng/L (0-15) H 06/06/22 10:05 Delta Troponin T -2.15 ABS# (0-10) L 06/06/22 10:05 Troponin T Hi Sens 6Hr 27.91 ng/L (0-15) H 06/06/22 14:40 Troponin T Hi Sens 6Hr Delta -3.09 ng/L (0-12) L 06/06/22 14:40 C-Reactive Protein 28.9 mg/L (0.0-4.9) H 06/11/22 05:36 NT-Pro-B Natriuret Pep 1189 pg/mL (0-450) H 06/10/22 05:08 Total Protein 5.9 g/dL (6.6-8.7) L 06/17/22 04:45 Albumin 2.5 g/dL (3.5-5.2) L 06/17/22 04:45 Globulin 3.4 g/dL (1.3-4.6) 06/17/22 04:45 Triglycerides 148 mg/dL (0-150) 06/07/22 04:27 Cholesterol 127 mg/dL (0-200) 06/07/22 04:27 LDL Cholesterol, Calc 65 mg/dL (50-129) 06/07/22 04:27 HDL Cholesterol 32 mg/dL (60-100) L 06/07/22 04:27 LDL/HDL Ratio 2.03 RATIO (0.00-3.22) 06/07/22 04:27 Cholesterol/HDL Ratio 3.97 mg/dL (1.0-5.00) 06/07/22 04:27 Procalcitonin 0.10 ng/mL (0-0.5) 06/16/22 03:20 TSH 8.83 uIU/mL (0.27-4.20) H 06/06/22 08:05 Free T4 0.77 ng/dL (0.82-1.77) L 06/06/22 08:05 Random Cortisol 20.44 ug/dL (2.47-19.5) H 06/11/22 05:36 Urine Color Yellow (Yellow) 06/10/22 21:00 Urine Appearance Clear (CLEAR) 06/10/22 21:00 Urine pH 5 (5-7) 06/10/22 21:00 Ur Specific [place] 1.020 (1.005-1.030) 06/10/22 21:00 Urine Protein 1+ (Negative) H 06/10/22 21:00 Urine Glucose (UA) Norm (Normal) 06/10/22 21:00 Urine Ketones Negative (Negative) 06/10/22 21:00 Urine Blood 2+ (Negative) H 06/10/22 21:00 Urine Nitrate Negative (Negative) 06/10/22 21:00 Urine Bilirubin Neg (Negative) 06/10/22 21:00 Urine Urobilinogen Norm mg/dL (Negative) 06/10/22 21:00 Ur Leukocyte Esterase Negative (Negative) 06/10/22 21:00 Urine RBC 0-4 /hpf (0-2) H 06/10/22 21:00 Urine WBC 0-4 /hpf (0-5) H 06/10/22 21:00 Ur Squamous Epith Cells 0-4 /hpf (0-5) H 06/10/22 21:00 Amorphous Sediment Not Reportable 06/10/22 21:00 Urine Bacteria Trace /hpf (NONE) 06/10/22 21:00 Hyaline Casts 0-4 /lpf H 06/10/22 21:00 Urine Mucus 1+ /hpf 06/10/22 21:00 TAE IFA Animal Tis Res Negative (NEGATIVE) 06/11/22 13:19 CECILIO-1 Antibody <1.0 neg AI (<1.0 NEG) 06/11/22 13:19 SS-A Antibody <1.0 neg AI (<1.0 NEG) 06/11/22 13:19 SS-B Antibody <1.0 neg AI (<1.0 NEG) 06/11/22 13:19 Sm (Perry) Antibody <1.0 neg AI (<1.0 NEG) 06/11/22 13:19 RETAIL ACCOUNT REPRESENTATIVE Antibody <1.0 neg AI (<1.0 NEG) 06/11/22 13:19 Scl-70 Antibody <1.0 neg AI (<1.0 NEG) 06/11/22 13:19 Centromere B Antibody <1.0 neg AI (<1.0 NEG) 06/11/22 13:19 Thyroid Peroxidase Ab 1 IU/mL (<9) 06/11/22 13:19 Complement C3c 117 mg/dL (82-185) 06/11/22 13:19 Complement C4c 26 mg/dL (15-53) 06/11/22 13:19 CH50 Classical Pathway >60 U/mL (31-60) H 06/11/22 13:19 SARS-CoV-2 RNA (RT-PCR) Detected (NOT DETECTED) A 06/10/22 11:19 SARS-CoV-2 Ag (Rapid) Negative (Negative) 06/10/22 12:04 Vitals Last Vital Signs Temp 96.6 F L 06/17/22 11:28 Pulse 85 06/17/22 11:28 Resp 18 06/17/22 11:28 BP 146/77 06/17/22 11:28 Pulse Ox 94 06/17/22 11:28 O2 Del Method 06/17/22 11:28 O2 Flow Rate 2 06/16/22 20:00 Discharge Plan Discharge Patient Disposition: Home Condition: Stable Prescriptions: New midodrine 5 mg Tablet 5 mg PO TID 30 Days Qty: 90 0RF levothyroxine 25 mcg Tablet 25 mcg PO QAM 30 Days Qty: 30 0RF fluconazole 100 mg Tablet 150 mg PO WEEKLY 28 Days Qty: 4 0RF guaifenesin [Mucinex] 600 mg Tablet Extended Release 12hr 1,200 mg PO BID PRN (Reason: cough) 30 Days Qty: 30 0RF Continued (DME) cam boot short to the right See Rx Instructions .ROUTE .MEDSUPPLY Qty: 1 0RF Rx Instructions: As directed famotidine 40 mg tablet 40 mg PO DAILY tamsulosin 0.4 mg capsule 0.4 mg PO BID Qty: 180 3RF insulin aspart U-100 [Novolog Flexpen U-100 Insulin] 100 unit/mL (3 mL) insulin pen See Rx Instructions SUBCUT TID Rx Instructions: sliding scale SUBCUT three times daily; 10-15 units before meals. aspirin [Adult Low Dose Aspirin] 81 mg tablet,delayed release (DR/EC) 81 mg PO DAILY duloxetine 30 mg capsule,delayed release(DR/EC) 30 mg PO BID finasteride 5 mg tablet 5 mg PO DAILY nitroglycerin 0.4 mg tablet, sublingual 0.4 mg sublingual Q5M PRN (Reason: Chest Pain) Rx Instructions: do not exceed 3 doses per episode clopidogrel [Plavix] 75 mg tablet 75 mg PO DAILY (DME) Diabetic Shoes with 3 pairs of molded inserts See Rx Instructions .ROUTE .MEDSUPPLY Qty: 1 0RF Rx Instructions: As directed (DME) Toe Alignment Splint See Rx Instructions .Route .MEDSUPPLY Qty: 1 0RF Rx Instructions: As directed (DME) Diabetic shoes with 3 inserts and Bilateral Toe Fillers See Rx Instructions .Route .MEDSUPPLY Qty: 1 0RF Rx Instructions: As directed [facility] methocarbamol 750 mg tablet 750 mg PO TID Qty: 30 0RF (DME) FreeStyle Jostin 2 Sensor Kit See Rx Instructions .Route Qty: 1 3RF Rx Instructions: As directed (DME) FreeStyle Jostin 2 Summers Misc See Rx Instructions .Route Qty: 1 0RF Rx Instructions: Check BS 4 times a day. cholecalciferol (vitamin D3) 50 mcg (2,000 unit) Tablet 50 mcg PO DAILY Biofreeze (menthol) 4 % gel 1 applic topical Q8H PRN (Reason: pain) Qty: 89 0RF Changed Lantus Solostar U-100 Insulin 100 unit/mL (3 mL) insulin pen 20 unit SUBCUT BID 30 Days Qty: 30 0RF gabapentin 300 mg capsule 200 mg PO TID Qty: 30 0RF Discontinued meloxicam 7.5 mg Tablet 7.5 mg PO DAILY Discharge Orders: Discharge Order (Routine); Ordered 06/17/22 Ordered By: Concepcion Newell Referrals: Vlad Corona DO [Primary Care Provider] - 7-10 days Patient Instructions: Opioid Safety Activity Restrictions/Additional Instructions: Follow-up with your primary care provider within 7 to 10 days to repeat liver function testing. Additionally follow-up for resolution of skin rash. Discharge Attestations Time Spent in Discharge Care*: greater than 30 min Quality Metrics Clinical Quality Measures [ No reported AMI, CVA or VTE this stay] Coding Level of Care Code Acute Chg FW DC note Diagnoses Fever R50.9 COVID-19 U07.1 Rash R21 Generalized weakness R53.1 Syncope and collapse R55 NSTEMI (non-ST elevated myocardial infarction) I21.4 CHF exacerbation I50.9 Cellulitis L03.90 Spinal stenosis M48.00 Falls W19.XXXA Uncontrolled type 2 diabetes mellitus E11.65 Glycemic state: with hyperglycemia Hyperlipidemia E78.2 Hyperlipidemia type: mixed hyperlipidemia Diabetic neuropathy E11.40 Coronary artery disease I25.10 CHF (congestive heart failure), NYHA class III I50.9 Congestive heart failure type: unspecified HTN (hypertension) I10 Hypertension type: essential hypertension PAD (peripheral artery disease) I73.9 Tinea cruris B35.6
[2022-06-17 14:17] LABS: ANCA Screen NEGATIVE (NEGATIVE)
[2022-06-17 14:22] LABS: DNA AB (DS) CRITHIDIA,IFA NEGATIVE (NEGATIVE)
[2022-06-17 15:03] LABS: Adenovirus Not Detected (Not Detected); Human Metapneumovirus Not Detected (Not Detected); Human Parainflu Virus 1 Not Detected (Not Detected); Human Parainflu Virus 2 Not Detected (Not Detected); Human Parainflu Virus 3 Not Detected (Not Detected); Human Rsv A Not Detected (Not Detected); Influenza A Not Detected (Not Detected); Influenza B Not Detected (Not Detected); Rhinovirus/Enterovirus Not Detected (Not Detected)
--- NOTE | 2022-06-17 15:32 | PC.OT ---
OT tx attempted at this time. Pt lying in bed with daughter at bedside. Daughter states hes going home. She asked pt if he wants to participate in OT, and pt declines. Pts plan is to go home with daughter and home health services.
[2022-06-17 16:38] LABS: Glucose Point of Care 187 mg/dL (70-110)
[2022-06-17] MEDS: enoxaparin 40 mg/0.4 mL Syringe SUBCUT (18:21)
== END 2022-06-17 19:46 | disposition home health service (06) | DRG 291 ==
LOC: ER 11:50 → MEDSURG 17:03
PROVIDERS: Internal Medicine; Admitting Provider Family Medicine; Emergency Provider Emergency Medicine; PCP Emergency Medicine Emergency Medical Services; Visit Provider Student in an Organized Health Care Education/Training Program
DX: I11.0 Hypertensive heart disease with heart failure (principal); I50.23 Acute on chronic systolic (congestive) heart failure; U07.1 COVID-19; L03.116 Cellulitis of left lower limb; L03.115 Cellulitis of right lower limb; L97.929 Non-pressure chronic ulcer of unspecified part of left lower leg with unspecified severity; L97.919 Non-pressure chronic ulcer of unspecified part of right lower leg with unspecified severity; I95.1 Orthostatic hypotension; I25.10 Atherosclerotic heart disease of native coronary artery without angina pectoris; E11.622 Type 2 diabetes mellitus with other skin ulcer; E11.51 Type 2 diabetes mellitus with diabetic peripheral angiopathy without gangrene; E11.42 Type 2 diabetes mellitus with diabetic polyneuropathy; N40.1 Benign prostatic hyperplasia with lower urinary tract symptoms; E78.5 Hyperlipidemia, unspecified; R53.1 Weakness; R29.6 Repeated falls; T50.906A Underdosing of unspecified drugs, medicaments and biological substances, initial encounter; E11.621 Type 2 diabetes mellitus with foot ulcer; L97.509 Non-pressure chronic ulcer of other part of unspecified foot with unspecified severity; M48.02 Spinal stenosis, cervical region; M48.061 Spinal stenosis, lumbar region without neurogenic claudication; E11.649 Type 2 diabetes mellitus with hypoglycemia without coma; E11.65 Type 2 diabetes mellitus with hyperglycemia; E83.42 Hypomagnesemia; R21 Rash and other nonspecific skin eruption; R94.6 Abnormal results of thyroid function studies; R79.89 Other specified abnormal findings of blood chemistry; D69.59 Other secondary thrombocytopenia; B35.6 Tinea cruris; Z95.5 Presence of coronary angioplasty implant and graft; Z87.891 Personal history of nicotine dependence; Z79.4 Long term (current) use of insulin; Z91.81 History of falling; Z99.3 Dependence on wheelchair; Z89.411 Acquired absence of right great toe; Z89.421 Acquired absence of other right toe(s); Z89.422 Acquired absence of other left toe(s)
CPT/HCPCS: 36415; 36416; 51702; 70450; 71045; 72125; 72131; 73521; 80053; 80061; 81001; 82533; 82550; 82962; 83036; 83735; 83880; 84100; 84145; 84439; 84443; 84484; 85025; 85378; 85651; 86036; 86140; 86160; 86162; 86235; 86255; 86376; 87040; 87070; 87205; 87426; 87633; 87635; 87641; 93005; 93306; 93880; 93970; 94640; 94664; 96360; 96372; 97110; 97161; 97165; 97530; 97535; 99285; J1650; J1815; J1940; J1956; J3370; J3475; J7030; P9047

== ENCOUNTER 2022-08-09 20:28 | Emergency (ER) | payer OTHER, SELFPAY ==
[2022-08-09 20:36] VITALS: BP 148/80; PULSE 102; RESP 16; TEMP 36.8; O2SAT 98; BMI 29.8
[2022-08-09 20:43] VITALS: BP 148/80; PULSE 102; RESP 16; TEMP 36.8; O2SAT 98
--- NOTE | 2022-08-09 21:03 | W.ED.GENADLT ---
HPI - General Adult General: Chief complaint: General Medical Stated complaint: Catheter change Time Seen by Provider: 08/09/22 20:38 History of Present Illness: Patient comes in from home with leaking around his Marx catheter as well as some pain with urination. Denies fever, abdominal pain, vomiting, or diarrhea. States that Marx catheter was changed about a week ago. Associated symptoms: Deny chest pain, dyspnea, headache(s), nausea, rash, palpitations or vomiting Review of Systems Const: Denies: fever(s) or body aches Eyes: Denies: change in vision or blurry vision ENMT: Denies: throat pain or odynophagia Card: Denies: chest pain or palpitations Resp: Denies: dyspnea or productive cough GI: Denies: abdominal pain, nausea or vomiting : Reports: dysuria; Denies: flank pain Musc: Denies: neck pain or back pain Skin/Breast: Denies: rash or pruritus Neuro: Denies: headache(s) or numbness in extremities Psych: Denies: anxiety or change in appetite Endo: Denies: polyuria or excessive sweating PFSH ED PFSH: Medical History Adopted Arthritis BPH loc w urin obs/LUTS CHF (congestive heart failure), NYHA class III Coronary artery disease Hematospermia History of amputation of right great toe HTN (hypertension) Hyperlipidemia PAD (peripheral artery disease) Stroke Surgical History History of amputation of lesser toe of left foot History of appendectomy History of carpal tunnel release History of shoulder surgery Family History Father No problems noted. Mother No problems noted. Other Hypertension Social History Smoking and tobacco status: former smoker Alcohol intake: current Alcohol intake frequency: holidays/special occasions only Marital status: Current occupational status: retired History of recent travel: No Physical Exam Const: COMMON NORMALS: no acute distress, patient oriented x3, healthy appearing and alert HENMT: COMMON NORMALS: normocephalic and atraumatic HEAD & SCALP: normocephalic and atraumatic Eye: COMMON NORMALS: Equal, round and reactive pupils present and EOMs intact bilaterally PUPIL: Yes Equal, round and reactive pupils present Neck/C-Spine: COMMON NORMALS: full ROM and supple Resp: COMMON NORMALS: normal respiratory effort, No retractions and No use of accessory muscles Cardio: COMMON NORMALS: regular rate and regular rhythm RATE: regular rate RHYTHM: regular rhythm GI: COMMON NORMALS: Normal to inspection, nondistended, normoactive bowel sounds present, Soft to palpation and non-tender PALPATION: Yes Soft to palpation Back/Pelvis: COMMON NORMALS: thoracic and lumbar spine normal to inspection and no thoracic nor lumbar tenderness Extremity: COMMON NORMALS: normal to inspection and full ROM Neuro: COMMON NORMALS: patient oriented x3 SENSORIUM/ORIENTATION: Yes alert Psych: COMMON NORMALS: mental status grossly normal and cooperative Skin: COMMON NORMALS: no rashes or lesions noted and no wounds GENERAL SKIN EXAM: no rashes or lesions noted Course Vital Signs: Vital signs: Vital Signs Temperature 98.2 F 08/09/22 20:43 Pulse Rate 102 H 08/09/22 20:43 Respiratory Rate 16 08/09/22 20:43 Blood Pressure 148/80 08/09/22 20:43 Pulse Oximetry 98 08/09/22 20:43 Oxygen Delivery Me thod 08/09/22 20:43 [facility] - General Adult Medical Decision Making Patient comes in from home with leaking around his Marx catheter as well as some pain with urination. Denies fever, abdominal pain, vomiting, or diarrhea. States that Marx catheter was changed about a week ago. On physical exam his abdomen is soft nontender. Will replace the Marx, check urinalysis, and reassess. On reassessment I talked to the patient about the test results. He states he is feeling much better after getting the Marx replaced. His previous Marx did not have the bulb inflated which is why he was leaking. He does have a urinary tract infection. We will place him on antibiotics and discharged with precautions to return for worsening or changing symptoms. Lab Data Laboratory Results Urine Color Dark yellow (Yellow) 08/09/22 21:17 Urine Appearance Cloudy (CLEAR) A 08/09/22 21:17 Urine pH 5.5 (5-7) 08/09/22 21:17 Ur Specific [place] 1.025 (1.005-1.030) 08/09/22 21:17 Urine Protein 2+ 08/09/22 21:17 Urine Glucose (UA) 4+ (Normal) H 08/09/22 21:17 Urine Ketones Trace (Negative) A 08/09/22 21:17 Urine Blood Large (Negative) A 08/09/22 21:17 Urine Nitrate Positive 08/09/22 21:17 Urine Bilirubin Negative (Negative) 08/09/22 21:17 Urine Urobilinogen 1.0 mg/dL (Negative) 08/09/22 21:17 Ur Leukocyte Esterase 1+ (Negative) A 08/09/22 21:17 Urine RBC Too numerous to cnt /hpf (0-2) H 08/09/22 21:17 Urine WBC Too numerous to cnt /hpf (0-5) H 08/09/22 21:17 Ur Squamous Epith Cells 0-4 /hpf (0-5) H 08/09/22 21:17 Calcium Oxalate Crystal 0-4 /hpf H 08/09/22 21:17 Amorphous Sediment Not Reportable 08/09/22 21:17 Urine Bacteria 4+ /hpf (NONE) H 08/09/22 21:17 Urine Mucus 1+ /hpf 08/09/22 21:17 Discharge Plan Discharge Patient Disposition: Home Clinical Impression: Urinary tract infection, Marx catheter problem Condition: Stable Prescriptions: New ciprofloxacin HCl [Cipro] 500 mg tablet 500 mg PO BID Qty: 14 0RF No Action (DME) cam boot short to the right See Rx Instructions .ROUTE .MEDSUPPLY Qty: 1 0RF Rx Instructions: As directed famotidine 40 mg tablet 40 mg PO DAILY tamsulosin 0.4 mg capsule 0.4 mg PO BID Qty: 180 3RF insulin aspart U-100 [Novolog Flexpen U-100 Insulin] 100 unit/mL (3 mL) insulin pen See Rx Instructions SUBCUT TID Rx Instructions: sliding scale SUBCUT three times daily; 10-15 units before meals. aspirin [Adult Low Dose Aspirin] 81 mg tablet,delayed release (DR/EC) 81 mg PO DAILY duloxetine 30 mg capsule,delayed release(DR/EC) 30 mg PO BID finasteride 5 mg tablet 5 mg PO DAILY nitroglycerin 0.4 mg tablet, sublingual 0.4 mg sublingual Q5M PRN (Reason: Chest Pain) Rx Instructions: do not exceed 3 doses per episode clopidogrel [Plavix] 75 mg tablet 75 mg PO DAILY (DME) Diabetic Shoes with 3 pairs of molded inserts See Rx Instructions .ROUTE .MEDSUPPLY Qty: 1 0RF Rx Instructions: As directed (DME) Toe Alignment Splint See Rx Instructions .Route .MEDSUPPLY Qty: 1 0RF Rx Instructions: As directed (DME) Diabetic shoes with 3 inserts and Bilateral Toe Fillers See Rx Instructions .Route .MEDSUPPLY Qty: 1 0RF Rx Instructions: As directed [facility] P [facility] O methocarbamol 750 mg tablet 750 mg PO TID Qty: 30 0RF (DME) FreeStyle Jostin 2 Sensor Kit See Rx Instructions .Route Qty: 1 3RF Rx Instructions: As directed (DME) FreeStyle Jostin 2 [place] Misc See Rx Instructions .Route Qty: 1 0RF Rx Instructions: Check BS 4 times a day. cholecalciferol (vitamin D3) 50 mcg (2,000 unit) Tablet 50 mcg PO DAILY gabapentin 300 mg capsule 200 mg PO TID Qty: 30 0RF Lantus Solostar U-100 Insulin 100 unit/mL (3 mL) insulin pen 20 unit SUBCUT BID 30 Days Qty: 30 0RF Biofreeze (menthol) 4 % gel 1 applic topical Q8H PRN (Reason: pain) Qty: 89 0RF Discharge Orders: Discharge ED (Routine); Ordered 08/09/22 Ordered By: Romeo Thomas Referrals: Vlad Corona DO [Primary Care Provider] - Patient Instructions: Urinary Tract Infection in Men (ED) Coding Level of Care Code ED Biology Lecturer for Chg Fwd Exam Comprehensive
[2022-08-09 21:39] LABS: Bilirubin Urine Negative (Negative); Blood Urine Large (Negative); Glucose Urine UA 4+ (Normal); Ketones Urine Trace (Negative); Leukocyte Esterase Urine 1+ (Negative); Nitrate Urine Positive; Protein Urine 2+; Specific Gravity, Urine 1.025 (1.005-1.030); pH Urine 5.5 (5-7)
[2022-08-09 21:41] LABS: Add Urine Microscopic? YES; Urine Appearance Cloudy (CLEAR); Urine Color Dark Yellow (Yellow)
[2022-08-09 21:57] LABS: Bacteria Urine 4+ /hpf; Mucus Urine 1+ /hpf; RBC Urine TOO NUMEROUS TO CNT /hpf (0-2); Squamous Epithelial Cell Urine 0-4 /hpf (0-5); WBC Urine TOO NUMEROUS TO CNT /hpf (0-5)
[2022-08-09 21:58] LABS: Add Urine Culture? Yes; Calcium Oxalate Crystals Urine 0-4 /hpf
[2022-08-09] MEDS: ciprofloxacin 500 mg Tablet PO (22:30)
--- NOTE | 2022-08-09 22:36 | PC.NURSE ---
spoke with unitizer gabo, who states that Annette in admissions/registrations is setting up transportation home due to bed bound status.
[2022-08-10 00:44] VITALS: BP 148/80; PULSE 102; RESP 16; TEMP 36.8; O2SAT 98
== END 2022-08-10 00:48 | disposition home or self-care (01) ==
PROVIDERS: Emergency Provider Emergency Medicine; PCP Emergency Medicine Emergency Medical Services
DX: T83.038A Leakage of other urinary catheter, initial encounter (principal); N39.0 Urinary tract infection, site not specified; Z79.02 Long term (current) use of antithrombotics/antiplatelets; Z79.82 Long term (current) use of aspirin; Z79.4 Long term (current) use of insulin; Z87.891 Personal history of nicotine dependence; I11.0 Hypertensive heart disease with heart failure; I50.9 Heart failure, unspecified; I25.10 Atherosclerotic heart disease of native coronary artery without angina pectoris; E78.5 Hyperlipidemia, unspecified; Z86.73 Personal history of transient ischemic attack (TIA), and cerebral infarction without residual deficits
CPT/HCPCS: 51702; 81001; 87077; 87086; 87186; 99283

== ENCOUNTER 2022-08-19 12:01 | Emergency (ER) | payer OTHER, SELFPAY ==
[2022-08-19 12:03] VITALS: BP 144/80; PULSE 101; RESP 19; TEMP 36.6; O2SAT 97; BMI 29.8
--- NOTE | 2022-08-19 12:10 | XRR_ITS ---
PROCEDURE INFORMATION: Exam: XR Chest Exam date and time: 08/19/2022 12:23 PM Age: 77 years old Clinical indication: Shortness of breath; Additional info: SOB TECHNIQUE: Imaging protocol: Radiologic exam of the chest. Views: 1 view. COMPARISON: CR XR chest 1V portable [id number] 06/10/2022 8:29 AM FINDINGS: Lungs: Unremarkable. No consolidation. Pleural spaces: Unremarkable. No pleural effusion. No pneumothorax. Heart/Mediastinum: Unremarkable. No cardiomegaly. Bones/joints: Unremarkable. XR/XR chest 1V portable [id number] IMPRESSION: No acute findings.
--- NOTE | 2022-08-19 12:42 | ECG_ITS ---
[facility] Test Date: 2022-08-19 Pat Name: Immanuel Dumont Department: Room: Gender: Male Manager Balance: : 1945 Requested By: Henrik Wiggins Order Number: [id number] Ramone MD: Miguel Ángel Sosa M.D. Measurements Intervals [place] Rate: 103 P: 64 [place]: 195 QRS: 106 QRSD: 140 T: -24 QT: 380 QTc: 500 Interpretive Statements SINUS TACHYCARDIA WITH OCCASIONAL VENTRICULAR PREMATURE COMPLEXES RIGHT AXIS DEVIATION [QRS AXIS > 100] RIGHT BUNDLE BRANCH BLOCK [120+ ms QRS DURATION, UPRIGHT V1, 40+ ms S IN I/aVL/V4/V5/V6] MODERATE T-WAVE ABNORMALITY, CONSIDER LATERAL ISCHEMIA [-0.1+ mV T-WAVE IN I/aVL/V5/V6] MODERATE T-WAVE ABNORMALITY, CONSIDER INFERIOR ISCHEMIA [-0.1+ mV T-WAVE IN II/aVF] Compared to ECG 06/06/2022 13:56:44 Ventricular premature complex(es) now present Sinus rhythm no longer present First degree AV block no longer present T-wave abnormality still present Possible ischemia still present Electronically Signed On 08-20-2022 8:26:52 CDT by Miguel Ángel Sosa M.D. [id number]
[2022-08-19 12:54] VITALS: BP 151/77; PULSE 102; O2SAT 95
--- NOTE | 2022-08-19 13:05 | W.ED.SOB ---
HPI - SOB/Dyspnea General: Chief Complaint: Shortness of Breath/Dyspnea Stated Complaint: SOB Source: patient Mode of arrival: EMS History of Present Illness: HPI Narrative: 77-year-old male presents emergency room from home with complaints of cough and shortness of breath. Patient had COVID 1 month ago he also was recently treated for bacterial pneumonia. He is having increasing cough minimally productive some mild chest discomfort on the right side worse with cough. Denies vomiting or diarrhea. No pain radiating to the neck or arms. On arrival here he maintains an oxygen sat on room air without difficulty. MD elicited complaint: shortness of breath and cough Associated symptoms: Deny abdominal pain, chest pain, fever(s), nausea, orthopnea, palpitations or vomiting Review of Systems Const: Denies: fever(s), chills, body aches, change in appetite, fatigue or malaise ENMT: Denies: throat pain, ear or mastoid pain, nasal discharge or nasal congestion Card: Denies: chest pain, palpitations, irregular heart rhythm, edema, dyspnea on exertion or orthopnea Resp: Reports: dyspnea; Denies: productive cough or non-productive cough GI: Denies: abdominal pain, nausea, vomiting, hematemesis, coffee ground emesis, diarrhea, constipation, bloating, hematochezia or melena : Denies: flank pain, dysuria, urinary frequency or urinary urgency Skin/Breast: Denies: rash or pruritus PFSH ED PFSH: Medical History Adopted Arthritis BPH loc w urin obs/LUTS Cellulitis CHF (congestive heart failure), NYHA class III CHF exacerbation Coronary artery disease Diabetic neuropathy Hematospermia History of amputation of right great toe HTN (hypertension) Hyperlipidemia NSTEMI (non-ST elevated myocardial infarction) PAD (peripheral artery disease) Spinal stenosis Stroke Surgical History History of amputation of lesser toe of left foot History of appendectomy History of carpal tunnel release History of shoulder surgery Family History Father No problems noted. Mother No problems noted. Other Hypertension Social History Smoking and tobacco status: former smoker Alcohol intake: current Alcohol intake frequency: holidays/special occasions only Marital status: Current occupational status: retired History of recent travel: No Physical Exam Const: COMMON NORMALS: no acute distress GENERAL APPEARANCE: cooperative and comfortable ORIENTATION/CONSCIOUSNESS: Yes awake, Yes oriented to person, Yes oriented to place and Yes oriented to time HENMT: COMMON NORMALS: normocephalic, atraumatic, hearing grossly normal bilaterally, external ears normal, EAC's normal, TM's normal bilaterally, Normal nasal mucous membranes and turbinates present, moist oral mucous membranes and oropharynx normal HEAD & SCALP: normocephalic and atraumatic NOSE: Normal nasal mucous membranes and turbinates present EXTERNAL EAR: Yes external ears normal EXTERNAL AUDITORY CANAL: EAC's normal TYMPANIC MEMBRANE: TM's normal bilaterally Resp: COMMON NORMALS: normal respiratory effort, No retractions, No use of accessory muscles and clear to auscultation bilaterally AUSCULTATION: clear to auscultation bilaterally Cardio: COMMON NORMALS: regular rate, regular rhythm and No murmurs present (Cardio) RATE: regular rate RHYTHM: regular rhythm GI: COMMON NORMALS: Soft to palpation and No hepatosplenomegaly present AUSCULTATION: Yes normoactive bowel sounds PALPATION: Yes Soft to palpation, No Tenderness to palpation present (GI), No Guarding due to palpation present (GI) and Yes No hepatosplenomegaly present Extremity: COMMON NORMALS: normal to inspection, capillary refill normal, no clubbing, cyanosis or edema, no calf tenderness and no pedal edema Neuro: SENSORIUM/ORIENTATION: Yes oriented to person, Yes oriented to place and Yes oriented to time Skin: COMMON NORMALS: no rashes or lesions noted GENERAL SKIN EXAM: no rashes or lesions noted Course Vital Signs: Vital signs: Vital Signs Temperature 97.8 F 08/19/22 12:03 Pulse Rate 103 H 08/19/22 14:52 Respiratory Rate 19 H 08/19/22 12:03 Blood Pressure 163/97 08/19/22 14:52 Pulse Oximetry 94 08/19/22 14:52 Oxygen Delivery Me thod 08/19/22 14:52 MDM - SOB/Dyspnea Medical Decision Making Labs and imaging reviewed no acute infiltrate noted on chest x-ray however he is slightly diminished breath sounds in the right side he has a productive cough we will treat him as if he has pneumonia clinically. Started outpatient antibiotics. Medical Records I reviewed the patient's medical records. Lab Data I reviewed the patient's lab results. : 08/19/22 12:45 08/19/22 13:37 Labs/Radiology: Radiology Impressions Chest X-Ray 08/19/22 12:10 IMPRESSION: No acute findings. Laboratory Results WBC 10.5 10^3/uL (4.0-10.0) H 08/19/22 12:45 RBC 4.67 10^6/uL (4.1-5.3) 08/19/22 12:45 Hgb 14.1 g/dL (11.7-16.6) 08/19/22 12:45 Hct 42.0 % (42.0-52.0) 08/19/22 12:45 MCV 89.9 fl (80-94) 08/19/22 12:45 MCH 30.2 pg (28.0-34.0) 08/19/22 12:45 MCHC 33.6 g/dL (30.0-36.0) 08/19/22 12:45 RDW 14.9 % (12.1-15.1) 08/19/22 12:45 Plt Count 150 10^3/cmm (130-400) 08/19/22 12:45 MPV 10.1 fL (7.4-10.4) 08/19/22 12:45 Neut % (Auto) 75.4 % 08/19/22 12:45 Lymph % (Auto) 12.2 % 08/19/22 12:45 [place] % (Auto) 8.9 % 08/19/22 12:45 Eos % (Auto) 1.8 % 08/19/22 12:45 Baso % (Auto) 0.9 % 08/19/22 12:45 Neut # (Auto) 7.94 10^3/uL (1.8-7.7) H 08/19/22 12:45 Lymph # (Auto) 1.3 10^3/uL (0.8-4.8) 08/19/22 12:45 [place] # (Auto) 0.9 10^3/uL (0.2-0.9) 08/19/22 12:45 Eos # (Auto) 0.2 10^3/uL (0.0-0.8) 08/19/22 12:45 Baso # (Auto) 0.1 10^3/uL (0.0-0.1) 08/19/22 12:45 Nucleated RBC % (auto) 0 % 08/19/22 12:45 Nucleated RBCs # 0.0 /100WBC 08/19/22 12:45 Sodium 131 mmol/L (136-145) L 08/19/22 13:37 Potassium 4.5 mmol/L (3.5-5.1) 08/19/22 13:37 Chloride 96 mmol/L (98-107) L 08/19/22 13:37 Carbon Dioxide 26 mmol/L (22-29) 08/19/22 13:37 Anion Gap 13.5 (5-19) 08/19/22 13:37 BUN 15 mg/dL (8-23) 08/19/22 13:37 Creatinine 0.5 mg/dL (0.7-1.2) L 08/19/22 13:37 GFR Calculation Not Reportable 08/19/22 13:37 Glucose 318 mg/dL (65-115) H 08/19/22 13:37 Calculated Osmolality 285 mOsm/kg (285-295) 08/19/22 13:37 Calcium 8.9 mg/dL (8.5-10.5) 08/19/22 13:37 Total Bilirubin 0.5 mg/dL (0.15-1.2) 08/19/22 13:37 AST 24 U/L (0-40) 08/19/22 13:37 ALT 19 U/L (0-41) 08/19/22 13:37 Alkaline Phosphatase 271 U/L (40-130) H 08/19/22 13:37 NT-Pro-B Natriuret Pep 453 pg/mL (0-450) H 08/19/22 13:37 Total Protein 6.7 g/dL (6.6-8.7) 08/19/22 13:37 Albumin 2.7 g/dL (3.5-5.2) L 08/19/22 13:37 Globulin 4.0 g/dL (1.3-4.6) 08/19/22 13:37 Discharge Plan Discharge Patient Disposition: Home Clinical Impression: Pneumonia Condition: Stable Prescriptions: New levofloxacin 750 mg tablet 750 mg PO DAILY 7 Days Qty: 7 0RF No Action (DME) cam boot short to the right See Rx Instructions .ROUTE .MEDSUPPLY Qty: 1 0RF Rx Instructions: As directed famotidine 40 mg tablet 40 mg PO BID tamsulosin 0.4 mg capsule 0.4 mg PO BID Qty: 180 3RF insulin aspart U-100 [Novolog Flexpen U-100 Insulin] 100 unit/mL (3 mL) insulin pen See Rx Instructions SUBCUT TID Rx Instructions: sliding scale SUBCUT three times daily; 10-15 units before meals. aspirin [Adult Low Dose Aspirin] 81 mg tablet,delayed release (DR/EC) 81 mg PO DAILY duloxetine 30 mg capsule,delayed release(DR/EC) 30 mg PO BID finasteride 5 mg tablet 5 mg PO DAILY nitroglycerin 0.4 mg tablet, sublingual 0.4 mg sublingual Q5M PRN (Reason: Chest Pain) Rx Instructions: do not exceed 3 doses per episode clopidogrel [Plavix] 75 mg tablet 75 mg PO DAILY (DME) Diabetic Shoes with 3 pairs of molded inserts See Rx Instructions .ROUTE .MEDSUPPLY Qty: 1 0RF Rx Instructions: As directed (DME) Toe Alignment Splint See Rx Instructions .Route .MEDSUPPLY Qty: 1 0RF Rx Instructions: As directed (DME) Diabetic shoes with 3 inserts and Bilateral Toe Fillers See Rx Instructions .Route .MEDSUPPLY Qty: 1 0RF Rx Instructions: As directed [facility] P [employer] O methocarbamol 750 mg tablet 750 mg PO TID Qty: 30 0RF (DME) FreeStyle Jostin 2 Sensor Kit See Rx Instructions .Route Qty: 1 3RF Rx Instructions: As directed (DME) FreeStyle Jostin 2 [place] Misc See Rx Instructions .Route Qty: 1 0RF Rx Instructions: Check BS 4 times a day. cholecalciferol (vitamin D3) 50 mcg (2,000 unit) Tablet 50 mcg PO DAILY Biofreeze (menthol) 4 % gel 1 applic topical Q8H PRN (Reason: pain) Qty: 89 0RF ciprofloxacin HCl [Cipro] 500 mg tablet 500 mg PO BID Qty: 14 0RF multivitamin Tablet 1 tab PO DAILY midodrine 5 mg Tablet 5 mg PO TID tramadol 50 mg Tablet 50 mg PO DAILY PRN (Reason: Pain) levothyroxine 25 mcg Tablet 25 mcg PO DAILY gabapentin 300 mg Capsule 300 mg PO TID Lantus Solostar U-100 Insulin 100 unit/mL (3 mL) insulin pen 48 unit SUBCUT BID Discharge Orders: Discharge ED (Routine); Ordered 08/19/22 Ordered By: Henrik Mccloud Referrals: Vlad Corona DO [Primary Care Provider] - Discharge Diet: Usual diet Discharge Activity: Increase activity as tolerated Patient Instructions: Opioid Safety, Pain Management Coding Level of Care Code ED Hand Iii Cutter for Chg Fwd Exam Detailed
[2022-08-19 13:14] LABS: Basophils # 0.1 10^3/uL (0.0-0.1); Basophils % 0.9 %; Eosinophils # 0.2 10^3/uL (0.0-0.8); Eosinophils % 1.8 %; Hemoglobin 14.1 g/dL (11.7-16.6); Lymphocytes # 1.3 10^3/uL (0.8-4.8); Lymphocytes % 12.2 %; Mean Corpuscular HGB Conc 33.6 g/dL (30.0-36.0); Mean Corpuscular Hemoglobin 30.2 pg (28.0-34.0); Mean Corpuscular Volume 89.9 fl (80-94); Mean Platelet Volume 10.1 fL (7.4-10.4); Monocytes # 0.9 10^3/uL (0.2-0.9); Monocytes % 8.9 %; Neutrophils # 7.94 10^3/uL (1.8-7.7); Neutrophils % 75.4 %; Nucleated Red Blood Cells % 0 %; Platelet Count 150 10^3/cmm (130-400); Red Blood Count 4.67 10^6/uL (4.1-5.3); Red Cell Distribution Width 14.9 % (12.1-15.1); White Blood Count 10.5 10^3/uL (4.0-10.0)
[2022-08-19 13:50] VITALS: BP 146/91; PULSE 103; O2SAT 95
[2022-08-19] MEDS: FUROsemide 10 mg/mL SDV 4mL 40 MG IVP (13:50)
[2022-08-19 14:14] VITALS: BP 164/86; PULSE 105; O2SAT 94
[2022-08-19 14:29] LABS: Alanine Aminotransferase 19 U/L (0-41); Albumin Level 2.7 g/dL (3.5-5.2); Alkaline Phosphatase 271 U/L (40-130); Anion Gap 13.5 (5-19); Aspartate Amino Transferase 24 U/L (0-40); Blood Urea Nitrogen 15 mg/dL (8-23); Calcium 8.9 mg/dL (8.5-10.5); Carbon Dioxide 26 mmol/L (22-29); Chloride 96 mmol/L (98-107); Glucose 318 mg/dL (65-115); NT Pro B Type Natriuretic Pept 453 pg/mL (0-450); Osmolality Calculated 285 mOsm/kg (285-295); Potassium 4.5 mmol/L (3.5-5.1); Sodium 131 mmol/L (136-145); Total Bilirubin 0.5 mg/dL (0.15-1.2); Total Protein 6.7 g/dL (6.6-8.7)
[2022-08-19 14:31] LABS: Creatinine Clr Calc Pharmacy 97.5858
[2022-08-19 14:52] VITALS: BP 163/97; PULSE 103; O2SAT 94
== END 2022-08-19 15:50 | disposition home or self-care (01) ==
PROVIDERS: Emergency Provider Family Medicine; PCP Emergency Medicine Emergency Medical Services
DX: J18.9 Pneumonia, unspecified organism (principal); Z79.02 Long term (current) use of antithrombotics/antiplatelets; Z79.82 Long term (current) use of aspirin; Z79.4 Long term (current) use of insulin; Z87.891 Personal history of nicotine dependence; I11.0 Hypertensive heart disease with heart failure; I50.9 Heart failure, unspecified; I25.10 Atherosclerotic heart disease of native coronary artery without angina pectoris; E78.5 Hyperlipidemia, unspecified; I25.2 Old myocardial infarction; Z86.73 Personal history of transient ischemic attack (TIA), and cerebral infarction without residual deficits
CPT/HCPCS: 36415; 71045; 80053; 83880; 85025; 93005; 96374; 99285; J1940

== ENCOUNTER 2022-09-25 14:36 | Outpatient (CLI) | payer OTHER, SELFPAY ==
[2022-09-25 16:21] LABS: Estmated Average Glucose 194; Hemoglobin A1C 8.4 % (4.0-6.0)
[2022-09-25 16:22] LABS: Add Urine Microscopic? YES; Bilirubin Urine Neg (Negative); Blood Urine 3+ (Negative); Glucose Urine UA 4+ (Normal); Ketones Urine Negative (Negative); Leukocyte Esterase Urine 2+ (Negative); Nitrate Urine Negative (Negative); Protein Urine 3+ (Negative); Urine Appearance Cloudy (CLEAR); Urine Color Yellow (Yellow); Urobilinogen Urine Norm (Negative); pH Urine 5 (5-7)
[2022-09-25 16:44] LABS: Free T4 Free Thyroxine 0.94 ng/dL (0.82-1.77); Magnesium 1.6 mg/dL (1.7-2.3); NT Pro B Type Natriuretic Pept 2301 pg/mL (0-450)
[2022-09-25 17:15] LABS: Bacteria Urine 1+ /hpf; Squamous Epithelial Cell Urine 0-4 /hpf (0-5); WBC Urine TOO NUMEROUS TO CNT /hpf (0-5)
[2022-09-25 17:16] LABS: Add Urine Culture? Yes
[2022-09-25 17:18] LABS: 25 Hydroxy Vitamin D 33 ng/mL (30-100); Vitamin B12 1095 pg/mL (232-1245)
[2022-09-25 17:35] LABS: Creatinine Urine, Random 84 mg/dL (39-259)
[2022-09-25 17:48] LABS: Microalbum Creatinine Ratio Ur 1667 mg/dL (0-20); Microalbumin Random Urine 140 ug/dL (0-20)
== END 2022-09-25 14:37 | disposition home or self-care (01) ==
PROVIDERS: PCP Emergency Medicine Emergency Medical Services; Visit Provider Emergency Medicine Emergency Medical Services
DX: E11.51 Type 2 diabetes mellitus with diabetic peripheral angiopathy without gangrene (principal); M81.0 Age-related osteoporosis without current pathological fracture; N40.0 Benign prostatic hyperplasia without lower urinary tract symptoms; E03.9 Hypothyroidism, unspecified; I25.10 Atherosclerotic heart disease of native coronary artery without angina pectoris; I10 Essential (primary) hypertension
CPT/HCPCS: 81001; 82044; 82306; 82607; 83036; 83735; 83880; 84153; 84439; 84443; 87086

== ENCOUNTER 2022-10-03 10:12 | Emergency (ER) | payer OTHER, SELFPAY ==
[2022-10-03 10:23] VITALS: BP 140/70; PULSE 98; RESP 18; TEMP 36.6; O2SAT 92; BMI 29.8
--- NOTE | 2022-10-03 10:27 | XRR_ITS ---
PROCEDURE INFORMATION: Exam: XR Chest Exam date and time: 10/03/2022 11:32 AM Age: 77 years old Clinical indication: Cough; Additional info: Dyspnea/cough TECHNIQUE: Imaging protocol: Radiologic exam of the chest. Views: 1 view. Total images: 2 COMPARISON: CR XR chest 1V portable [id number] 08/19/2022 12:23 PM FINDINGS: Lungs: Interval worsening of bilateral pleuroparenchymal disease. Pleural spaces: No pneumothorax. Heart/Mediastinum: Heart is enlarged but stable when compared to the prior exam. Bones/joints: Chronic right rotator cuff tear. Moderate joint space narrowing, subchondral sclerosis, and osteophyte formation is noted to the AC joint. Osseous structures are unchanged from the prior exam. XR/XR chest 1V portable [id number] IMPRESSION: 1. Heart is enlarged but stable when compared to the prior exam. 2. Interval worsening of bilateral pleuroparenchymal disease.
--- NOTE | 2022-10-03 10:44 | ED_ITS ---
HPI - General Adult General: Chief complaint: General Medical Stated complaint: Edema/possible aspiration Time Seen by Provider: 10/03/22 10:27 Source: patient Mode of arrival: EMS History of Present Illness: 77-year-old male presents emergency room concerned that he may have aspirated something yesterday while he was eating. He has had increased cough of brownish mucus production he denies any chest pain. He has been slightly short of breath no fever sweats or chills prior to the episode while he was eating yesterday he had not had any shortness of significant shortness of breath of his usual baseline. He has a history of congestive heart failure and diabetes mellitus he denies any recent worsening orthopnea. He has a chronic indwelling Marx denies any diarrhea fever sweats or chills. Onset (ago): hour(s) Severity: mild Relieving factors: none Exacerbating factors: none Associated symptoms: Reports cough, decreased appetite, dyspnea, fevers/chills, nausea, short of breath and vomiting; Deny chest pain, confusion, diaphoresis, headache(s), malaise, rash, palpitati ons, seizures, syncope or weakness Treatments prior to arrival: none Review of Systems Const: Denies: fever(s), chills, fatigue, malaise or diaphoresis ENMT: Denies: throat pain, ear or mastoid pain, nasal discharge or nasal congestion Card: Denies: chest pain, palpitations or syncope Resp: Reports: dyspnea, productive cough and wheezing; Denies: non-productive cough GI: Reports: nausea and vomiting; Denies: abdominal pain, diarrhea or constipation : Denies: flank pain, dysuria, urinary frequency or urinary urgency Musc: Denies: neck pain or back pain Skin/Breast: Denies: rash or pruritus Neuro: Denies: headache(s) or confusion PFSH ED PFSH: Medical History Adopted Arthritis BPH loc w urin obs/LUTS Cellulitis CHF (congestive heart failure), NYHA class III CHF exacerbation Coronary artery disease Diabetic neuropathy Hematospermia History of amputation of right great toe HTN (hypertension) Hyperlipidemia NSTEMI (non-ST elevated myocardial infarction) PAD (peripheral artery disease) Spinal stenosis Stroke Surgical History History of amputation of lesser toe of left foot History of appendectomy History of carpal tunnel release History of shoulder surgery Family History Father No problems noted. Mother No problems noted. Other Hypertension Social History Smoking and tobacco status: former smoker Alcohol intake: current Alcohol intake frequency: holidays/special occasions only Marital status: Current occupational status: retired History of recent travel: No Physical Exam Const: GENERAL APPEARANCE: cooperative and comfortable ORIENTATION/CONSCIOUSNESS: Yes awake, Yes oriented to person, Yes oriented to place and Yes oriented to time HENMT: COMMON NORMALS: normocephalic, atraumatic and hearing grossly normal bilaterally HEAD & SCALP: normocephalic and atraumatic Resp: COMMON NORMALS: normal respiratory effort, No retractions, No use of a ccessory muscles and clear to auscultation bilaterally AUSCULTATION: clear to auscultation bilaterally Cardio: COMMON NORMALS: regular rate, regular rhythm and No murmurs present (Cardio) RATE: regular rate RHYTHM: regular rhythm GI: COMMON NORMALS: Soft to palpation and No hepatosplenomegaly present AUSCULTATION: Yes normoactive bowel sounds PALPATION: Yes Soft to palpation, No Tenderness to palpation present (GI), No Guarding due to palpation present (GI) and Yes No hepatosplenomegaly present Extremity: COMMON NORMALS: normal to inspection, capillary refill normal, no clubbing, cyanosis or edema, no calf tenderness and no pedal edema Neuro: SENSORIUM/ORIENTATION: Yes oriented to person, Yes oriented to place and Yes oriented to time Skin: COMMON NORMALS: no rashes or lesions noted GENERAL SKIN EXAM: no rashes or lesions noted Course Vital Signs: Vital signs: Vital Signs Temperature 97.8 F 10/03/22 12:04 Pulse Rate 98 10/03/22 12:04 Respiratory Rate 18 10/03/22 12:04 Blood Pressure 120/77 10/03/22 15:19 Pulse Oximetry 93 10/03/22 15:19 Oxygen Delivery Me thod 10/03/22 12:[address] [facility] - General Adult Medical Decision Making There were concerned he had aspirated. Chest x-ray looks normal his oxygen sats are good he is not have any difficulty breathing no stridor no significant wheezing. We will discharge patient home prophylactically start him on clindamycin if he has any worsening or change symptoms return to the emergency room. Medical Records I reviewed the patient's medical records. Lab Data I reviewed the patient's lab results. 10/03/22 10:50 10/03/22 10:50 Radiology Impressions Chest X-Ray 10/03/22 10:27 IMPRESSION: 1. Heart is enlarged but stable when compared to the prior exam. 2. Interval worsening of bilateral pleuroparenchymal disease. Laboratory Results WBC 16.5 10^3/uL (4.0-10.0) H 10/03/22 10:50 RBC 4.64 10^6/uL (4.1-5.3) 10/03/22 10:50 Hgb 14.2 g/dL (11.7-16.6) 10/03/22 10:50 Hct 41.0 % (42.0-52.0) L 10/03/22 10:50 MCV 88.4 fl (80-94) 10/03/22 10:50 MCH 30.6 pg (28.0-34.0) 10/03/22 10:50 MCHC 34.6 g/dL (30.0-36.0) 10/03/22 10:50 RDW 15.2 % (12.1-15.1) H 10/03/22 10:50 Plt Count 161 10^3/cmm (130-400) 10/03/22 10:50 MPV 10.2 fL (7.4-10.4) 10/03/22 10:50 Neut % (Auto) 74.2 % 10/03/22 10:50 Lymph % (Auto) 15.3 % 10/03/22 10:50 [place] % (Auto) 8.3 % 10/03/22 10:50 Eos % (Auto) 1.0 % 10/03/22 10:50 Baso % (Auto) 0.6 % 10/03/22 10:50 Neut # (Auto) 12.23 10^3/uL (1.8-7.7) H 10/03/22 10:50 Lymph # (Auto) 2.5 10^3/uL (0.8-4.8) 10/03/22 10:50 [place] # (Auto) 1.4 10^3/uL (0.2-0.9) H 10/03/22 10:50 Eos # (Auto) 0.2 10^3/uL (0.0-0.8) 10/03/22 10:50 Baso # (Auto) 0.1 10^3/uL (0.0-0.1) 10/03/22 10:50 Nucleated RBC % (auto) 0 % 10/03/22 10:50 Nucleated RBCs # 0.0 /100WBC 10/03/22 10:50 Sodium 132 mmol/L (136-145) L 10/03/22 10:50 Potassium 4.2 mmol/L (3.5-5.1) 10/03/22 10:50 Chloride 97 mmol/L (98-107) L 10/03/22 10:50 Carbon Dioxide 28 mmol/L (22-29) 10/03/22 10:50 Anion Gap 11.2 (5-19) 10/03/22 10:50 BUN 14 mg/dL (8-23) 10/03/22 10:50 Creatinine 0.6 mg/dL (0.7-1.2) L 10/03/22 10:50 GFR Calculation Not Reportable 10/03/22 10:50 Glucose 164 mg/dL (65-115) H 10/03/22 10:50 Calculated Osmolality 278 mOsm/kg (285-295) L 10/03/22 10:50 Calcium 9.1 mg/dL (8.5-10.5) 10/03/22 10:50 Discharge Plan Discharge Patient Disposition: Home Clinical Impression: Aspiration of food Condition: Stable Prescriptions: New clindamycin HCl 300 mg capsule 300 mg PO QID 10 Days Qty: 40 0RF No Action (DME) cam boot short to the right See Rx Instructions .ROUTE .MEDSUPPLY Qty: 1 0RF Rx Instructions: As directed famotidine 40 mg tablet 40 mg PO BID tamsulosin 0.4 mg capsule 0.4 mg PO BID Qty: 180 3RF insulin aspart U-100 [Novolog Flexpen U-100 Insulin] 100 unit/mL (3 mL) insulin pen See Rx Instructions SUBCUT TID Rx Instructions: sliding scale SUBCUT three times daily; 10-15 units before meals. aspirin [Adult Low Dose Aspirin] 81 mg tablet,delayed release (DR/EC) 81 mg PO DAILY duloxetine 30 mg capsule,delayed release(DR/EC) 30 mg PO BID finasteride 5 mg tablet 5 mg PO DAILY nitroglycerin 0.4 mg tablet, sublingual 0.4 mg sublingual Q5M PRN (Reason: Chest Pain) Rx Instructions: do not exceed 3 doses per episode clopidogrel [Plavix] 75 mg tablet 75 mg PO DAILY (DME) Diabetic Shoes with 3 pairs of molded inserts See Rx Instructions .ROUTE .MEDSUPPLY Qty: 1 0RF Rx Instructions: As directed (DME) Toe Alignment Splint See Rx Instructions .Route .MEDSUPPLY Qty: 1 0RF Rx Instructions: As directed (DME) Diabetic shoes with 3 inserts and Bilateral Toe Fillers See Rx Instructions .Route .MEDSUPPLY Qty: 1 0RF Rx Instructions: As directed [facility] methocarbamol 750 mg tablet 750 mg PO TID Qty: 30 0RF (DME) FreeStyle Jostin 2 Sensor Kit See Rx Instructions .Route Qty: 1 3RF Rx Instructions: As directed (DME) FreeStyle Jostin 2 Ezel Misc See Rx Instructions .Route Qty: 1 0RF Rx Instructions: Check BS 4 times a day. cholecalciferol (vitamin D3) 50 mcg (2,000 unit) Tablet 50 mcg PO DAILY Biofreeze (menthol) 4 % gel 1 applic topical Q8H PRN (Reason: pain) Qty: 89 0RF multivitamin Tablet 1 tab PO DAILY midodrine 5 mg Tablet 5 mg PO TID tramadol 50 mg Tablet 50 mg PO DAILY PRN (Reason: Pain) levothyroxine 25 mcg Tablet 25 mcg PO DAILY gabapentin 300 mg Capsule 300 mg PO TID insulin glargine [Lantus Solostar U-100 Insulin] 100 unit/mL (3 mL) insulin pen 48 unit SUBCUT BID Discharge Orders: Discharge ED (Routine); Ordered 10/03/22 Ordered By: Henrik Mccloud Referrals: Vlad Corona DO [Primary Care Provider] - Discharge Diet: Usual diet Discharge Activity: Resume usual activity Patient Instructions: Opioid Safety, Pain Management Activity Restrictions/Additional Instructions: You are seen today for possibility of aspiration of food yesterday. Chest x-ray looks clear but based on your description of the events and your history of diabetes we did put you on antibiotics 1 4 times a day for 10 days if your symptoms worsens or change return to the emergency room or follow-up with your primary care doctor. 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
[2022-10-03 10:58] LABS: Basophils # 0.1 10^3/uL (0.0-0.1); Basophils % 0.6 %; Eosinophils # 0.2 10^3/uL (0.0-0.8); Hemoglobin 14.2 g/dL (11.7-16.6); Lymphocytes # 2.5 10^3/uL (0.8-4.8); Lymphocytes % 15.3 %; Mean Corpuscular HGB Conc 34.6 g/dL (30.0-36.0); Mean Corpuscular Hemoglobin 30.6 pg (28.0-34.0); Mean Corpuscular Volume 88.4 fl (80-94); Mean Platelet Volume 10.2 fL (7.4-10.4); Monocytes # 1.4 10^3/uL (0.2-0.9); Monocytes % 8.3 %; Neutrophils # 12.23 10^3/uL (1.8-7.7); Neutrophils % 74.2 %; Nucleated Red Blood Cells % 0 %; Platelet Count 161 10^3/cmm (130-400); Red Blood Count 4.64 10^6/uL (4.1-5.3); Red Cell Distribution Width 15.2 % (12.1-15.1); White Blood Count 16.5 10^3/uL (4.0-10.0)
[2022-10-03 11:18] LABS: Anion Gap 11.2 (5-19); Blood Urea Nitrogen 14 mg/dL (8-23); Calcium 9.1 mg/dL (8.5-10.5); Carbon Dioxide 28 mmol/L (22-29); Chloride 97 mmol/L (98-107); Glucose 164 mg/dL (65-115); Osmolality Calculated 278 mOsm/kg (285-295); Potassium 4.2 mmol/L (3.5-5.1); Sodium 132 mmol/L (136-145)
[2022-10-03 11:19] LABS: Creatinine Clr Calc Pharmacy 97.5858
[2022-10-03 12:04] VITALS: BP 140/70; PULSE 98; RESP 18; TEMP 36.6; O2SAT 92
--- NOTE | 2022-10-03 13:09 | PC.PHAR ---
[facility] CLOSED FOR [facility]- PTS VISITOR HELPS WITH MEDICATIONS AND WAS ABLE TO VERIFY
[2022-10-03 15:13] VITALS: BP 120/77; O2SAT 93
[2022-10-03 15:19] VITALS: BP 120/77; O2SAT 93
== END 2022-10-03 15:25 | disposition home or self-care (01) ==
PROVIDERS: Emergency Provider Family Medicine; PCP Emergency Medicine Emergency Medical Services
DX: T17.908A Unspecified foreign body in respiratory tract, part unspecified causing other injury, initial encounter (principal); X58.XXXA Exposure to other specified factors, initial encounter
CPT/HCPCS: 36415; 71045; 80048; 85025; 99284